=== PATIENT | female | born 1975 | race Caucasian/White ===

== ENCOUNTER 2023-04-25 06:42 | Outpatient (OUT) | payer OTHER, SELFPAY ==
[2023-04-25 07:22] LABS: Basophils Percent Auto 0.6 % (0.2-2.0); Eosinophils Absolute Auto 0.1 10^3/uL (0.0-0.7); Eosinophils Percent Auto 1.4 % (0.9-7.0); Hematocrit 37.6 % (36.0-48.0); Hemoglobin 12.6 g/dL (12.0-16.0); Immature Granulocytes Abs Auto 0.01 10^3/uL (0.00-0.03); Immature Granulocytes Pct Auto 0.2 % (0.0-0.5); Lymphocytes Absolute Auto 1.7 10^3/uL (1.2-3.8); Lymphocytes Percent Auto 33.9 % (20.5-60.0); Mean Corpuscular HGB Conc 33.5 g/dL (29.9-35.2); Mean Corpuscular Hemoglobin 33.1 pg (26.7-34.0); Mean Corpuscular Volume 98.7 fL (81.0-99.0); Mean Platelet Volume 10.1 fL (9.5-13.5); Monocytes Absolute Auto 0.3 10^3/uL (0.3-0.8); Monocytes Percent Auto 6.8 % (1.7-12.0); Neutrophils Absolute Auto 2.9 10^3/uL (1.4-6.5); Neutrophils Percent Auto 57.1 % (43.0-75.0); Platelet Count 303 10^3/uL (150-450); Red Blood Count 3.81 10^6/uL (4.20-5.40); Red Cell Distribution Width 12.2 % (11.0-15.0)
[2023-04-25 07:22] LABS: Bilirubin Urine SMALL (NEGATIVE); Blood Urine SMALL (NEGATIVE); Clarity Urine CLEAR (CLEAR); Color Urine YELLOW (YELLOW); Glucose Urine UA NEGATIVE (NEGATIVE); Ketones Urine NEGATIVE (NEGATIVE); Protein Urine NEGATIVE (NEG/TRACE); Specific Gravity Urine 1.025 (1.005-1.025); pH Urine 5.5 (5.0-9.0)
[2023-04-25 07:23] LABS: Leukocyte Esterase Urine NEGATIVE (NEGATIVE); Nitrite Urine NEGATIVE (NEGATIVE); Urobilinogen Urine 0.2 EU/dL (0.2-1.0)
[2023-04-25 07:24] LABS: Bacteria Urine NONE SEEN #/HPF (NONE SEEN); Mucus Urine NONE SEEN (NONE SEEN); RBC Urine 0-2 #/HPF (0-2); Squamous Epithelial Cell Urine FEW #/LPF (NONE/RARE); WBC Urine NONE SEEN #/HPF (NONE SEEN)
[2023-04-25 07:25] LABS: Cast Seen? NONE SEEN #/LPF (NONE SEEN); Crystals Seen? None Seen #/HPF (None Seen)
[2023-04-25 08:23] LABS: Alanine Aminotransferase 28 U/L (14-59); Albumin Globulin Ratio 1.1; Albumin Level 3.9 g/dL (3.4-5.0); Alkaline Phosphatase 36 U/L (46-116); Anion Gap 13.3; Aspartate Amino Transferase 14 U/L (15-37); BUN Creatinine Ratio 29.2; Bilirubin Total 0.6 mg/dL (0.2-1.0); Calcium 8.7 mg/dL (8.5-10.1); Carbon Dioxide 27.7 mmol/L (21.0-32.0); Chloride 103 mmol/L (98-107); Chol HDL Ratio 2.3; Cholesterol 206 mg/dL (<=200); Estimated GFR (African America >60 (>=60); Estimated GFR (Non-African Ame >60 (>=60); Globulin 3.5 g/dL; Glucose 83 mg/dL (74-106); HDL Cholesterol 91 mg/dL (40-60); Sodium 140 mmol/L (136-145); Thyroid Stimulating Hormone 3.284 uIU/mL (0.358-3.740); Total Protein 7.4 g/dL (6.4-8.2); Triglycerides 66 mg/dL (<=150); VLDL CHOLESTEROL 13.2 mg/dL
== END 2023-04-25 06:43 | disposition home or self-care (01) ==
LOC: LAB 06:46
PROVIDERS: PCP Nurse Practitioner; Visit Provider Nurse Practitioner
DX: Z00.00 Encounter for general adult medical examination without abnormal findings (principal); Z78.9 Other specified health status
CPT/HCPCS: 36415; 80053; 80061; 81001; 84443; 85025

== ENCOUNTER 2023-07-12 19:54 | Emergency (ER) | payer OTHER, SELFPAY ==
[2023-07-12 20:01] VITALS: BP 135/87; PULSE 115; RESP 18; TEMP 37; O2SAT 96; BMI 26.5
--- OUTSIDE RECORDS SUMMARY | 2023-07-12 20:02 | XMS_ITS | CCD ---
Author Name Unknown Address [address] [place] [address] Organization [facility] Care Team Providers Care Cold Header Operator Name Role Phone RADHA, PASTE THINNER AMBER Admitting Unavailable AICHHOLZ, PASTE THINNER AMBER Attending Unavailable AICHHOLVimal, BLAINE AMBER Primary Care Unavailable AICHHOLZ, PASTE THINNER AMBER Consulting Unavailable MUKESH BOYD Admitting Unavailable MUKESH BOYD Attending Unavailable MUKESH BOYD Consulting Unavailable MISC, DR HELTON Admitting Unavailable MISC, DR HELTON Attending Unavailable DR CAROLINA DAVIS Primary Care Unavailable MISC, DR HELTON Consulting Unavailable Itzel Wilkinson Unavailable AMBER LOUIS Primary Care Physician [phone] Kanika Licea Unavailable Brendon Muniz Attending Unavailable Brendon Muniz Admitting Unavailable BRENDON MUNIZ Attending Unavailable BRENDON MUNIZ Attending Unavailable RBENDON MUNIZ Attending Unavailable Aichholvimal SIGNAL MECHANIC-PASTE THINNER, Amber Awad Primary Care Unava ilable Iggyhrjimmyh PA-C, Milka Murray Attending Unavai lable Aichholz SIGNAL MECHANIC-PASTE THINNER, Amber Awad Primary Care Unava ilable Weihrauch PA-C, Milka Murray Attending Unavai lable Aichholz SIGNAL MECHANIC-PASTE THINNER, Amber Awad Primary Care Unava ilable Iggyhrauch PA-C, Milka Murray Attending Unavai lable Aichholz SIGNAL MECHANIC-PASTE THINNER, Amber Awad Primary Care Unava ilable Weihrauch PA-C, Milka Murray Attending Unavai lable Aichholz SIGNAL MECHANIC-PASTE THINNER, Amber Awad Primary Care Unava ilable Pamelah PA-C, Milka Murray Attending Amber Gibson Primary Care Roman Sullivan PA-C, Milka Murray Attending James Sullivan PA-C, Milka Murray Attending Amber Gibson Primary Care Roman carolina Allergies Allergy Classification Reported Allergen(s) Allergy Type Date of Onset Reaction(s) Facility (1 source) Acetaminophen / HYDROcodone; Translations: [Vicodin] Drug Allergy [facility] Repository (1 source) Acetaminophen / oxyCODONE; Translations: [Percocet 5/325] Drug Allergy [facility] Repository Medications Current Medications Medication Drug Class(es) Dates Sig (Normalized) Sig (Original) cephalexin 500 mg oral capsule (1 source) Cephalosporin Antibacterial Start: 01-22-2023 take 1 capsule by mouth every eight hours Cephalexin 500 MG 1 capsule Orally TID for 7 days Jan, Active mupirocin 0.02 mg/mg topical ointment (1 source) RNA Synthetase Inhibitor Antibacterial Start: 01-22-2023 Mupirocin 2 % 1 application Externally three times a day for 7 days Jan, Active 24 hr phentermine 15 mg / topiramate 92 mg extended release oral capsule (1 source) Sympathomimetic Amine Anorectic take 1 capsule by mouth every twenty-four hours Qsymia 15-92 MG 1 capsule Orally Once a day Active Completed/Discontinued Medications Medication Drug Class(es) Dates Sig (Normalized) Sig (Original) ondansetron 4 mg disintegrating oral tablet (1 source) Serotonin-3 Receptor Antagonist take 1-2 tablets by mouth every eight hours as needed Ondansetron 4 MG DISSOLVE 1-2 TABLETS ON THE TONGUE EVERY 8 HOURS NEEDED Oral for 7 Days Not-Taking Problems Active Problems Problem Classification Problem Date Documented Da te Episodic/Chronic Skin and subcutaneous tissue infections (1 source) Cellulitis of neck Episodic Unclassified (3 sources) CONTACT W/AND (SUSP) EXPOS COVID-19; Translations: [CONTACT W/AND (SUSP) EXPOS COVID-19] Onset: 10-07-2020 Varicose veins of lower extremity (1 source) Pain co-occurrent and due to varicose veins of bilateral legs; Translations: [Varicose veins of bilateral lower extremities with pain] Onset: 04-20-2022 Episodic Past or Other Problems Problem Classification Problem Date Documented Da te Episodic/Chronic Immunizations and screening for infectious disease (1 source) Encounter for screening for other viral diseases; Translations: [Encounter for screening for other viral diseases Z11.59] Onset: 2021 Resolved: 2021 Episodic Other aftercare (4 sources) Other senior living (current) drug therapy; Translations: [OTH DETENTION CURRENT DRUG THERAPY] Onset: 10-19-2020 Episodic Unclassified (1 source) CONTACT W/AND (SUSP) EXPOS COVID-19; Translations: [CONTACT W/AND (SUSP) EXPOS COVID-19] Onset: 10-04-2020 Results Test Name Value Interpretation Reference Range Facil ity Gynecology Office/Clinic Not lalit 05-31-2023 Gynecology Office/Clinic Note Chief Complaint 1 month Wegovy f/u History of Present Illness Contraception Type: None Sexually Active: Yes Date You Last Had Sex: Yesterday Partners in Last 30 Days: 1 Partners in Last 12 Months: 1 Partners in Your Lifetime: 5 Kinds of Sex: Vaginal Forced to Have Sex: No Partner Had More Than 1 Partner: Yes Partner IV Drug Use: No Consistently Use Condoms: No 05/25/23 13:51:00 1 month Wegovy f/u. Patient was started on compounded Wegovy through [employer]. She denies any side effects such as nausea, abdominal pain, diarrhea, or constipation. She relays it has helped curb her appetite. She feels wonderful and has been pleased with her results. She is down 2 pounds in 1 month. Patient continues to work hard on diet and exercise. She has been doing her treadmill for half an hour each morning. She continues to follow low-carb high-protein diet. He is focusing on portion control. Review of Systems Gastrointestinal Bloating: No Reflux/heartburn: No Abdominal Pain: No Change in bowel habits: No Urinary Urinary Incontinence: No Urinary frequency: No Nocturia: No Urgency: No Painful urination: No PsychoSocial Sleep Problems: No Anxiety: No Suicidal Ideation: No Homicidal Ideation: No Depression: No Additional Details Pain Present Physical Exam Vitals & Measurements BP: 120/78 Constitutional: Alert and oriented x 3. Neurologic: CN II-XII grossly intact. Psychiatric: Pleasant and cooperative. NAD. Additional Vitals BP Position/Location: Sitting, Right arm Assessment/Plan 1. Medication management Wegovy (Semaglutide): 1. Wegovy is an FDA approved prescription injectable medication that may help adults lose weight. It should be used along with a low calorie meal plan and physical activity. 2. Discussed risks with Wegovy including possible thyroid tumors or cancer. Do not use Wegovy if you or any of your family have ever had Medullary thyroid cancer or if you have an endocrine system condition called Multiple Endocrine Neoplasia syndrome type 2 (MEN 2) 3. Other possible risks of Wegovy include inflammation of the pancreas (pancreatitis) and gallbladder problems. Contact the office if you have any severe abdominal pain. 4. Possible side effects include low blood sugar, allergic reactions, mood changes, increased heart rate. Contact the office if you have any of these symptoms. 5. Common side effects include nausea, diarrhea, constipation, headache, vomiting, decreased appetite, gas, heartburn, and fatigue. 6. Wegovy is injected under the skin in your stomach, upper leg, or upper arm (subcutaneous tissue). DO NOT INJECT INTO A VEIN OR MUSCLE. 7. The starting dose of Wegovy is 0.25mg once per week x 4 weeks. In your second month increase your weekly dose to 0.5mg. In your third month to 1mg. In our fourth month increase your weekly dose to 1.7mg. In your fifth month you'll increase your dose to 2.4mg. From then onward, you'll continue taking that dose each week. If you are having multiple side effects do not increase to the next dose. 8. There should be a 4% weight loss by week 16 or Wegovy should be discontinued. Pt. is most interested in compounded Semaglutide. Discussed compounded Semaglutide options. Patient is educated that there are no randomized trials demonstrating either efficacy or safety of compounded Semaglutide for weight loss. The contents, dose, quality, and sterility of these products are not subject to regulatory oversight. When tested, potencies and patterns of absorption of compounded medications have been highly variable. These products are not required to include package inserts or the standard warnings that all approved prescriptions provide. A number of expert groups, including the Endocrine Society, have issued statements advising against the use of custom-compounded medications. Discussed that the risks associated with compounded Semaglutide is likely similar to the risks when taking Wegovy. Patient will increase dose to the 0.6 weekly syringe. She will follow-up in 3 months. Patient aware she should have lost 5% of body weight by that time. If she has, we can continue on the medication long-term. 2. Obesity Medical Decision Making Chronic conditions NOT treated during this visit that affected my overall medical decision making: [] Treatment plans discussed but not opted for at this time: [] Prescribed medication that requires intensive monitoring for toxicity: [] I have reviewed the patient?s medication list for medication interactions/contrai ndications and/or for upcoming procedures: [yes or no] Time Spent with the Patient I have personally spent [] minutes on this date, directly related to today's patient visit, including pre and post visit work, for this date of service. Time listed does not include time spent on separately billable services. Problem List/Past Medical History Ongoing Diverticulosis Encounter for gynecological examination (general) (more content not included)... Normal [facility] Physician Orderon 05-02-2023 Physician Order [id number] #[id number] Normal [facility] Gynecology Office/Clinic Not lalit 04-26-2023 Gynecology Office/Clinic Note History of Present Illness Pelvic Pain: No Abnormal Vaginal Discharge: No Abnormal Vaginal Bleeding: No Vaginal Dryness: No Vaginal Itch: No Vaginal Burning: No Vaginal Odor: No Contraception Type: None Sexually Active: Yes Date You Last Had Sex: Yesterday Partners in Last 30 Days: 1 Partners in Last 12 Months: 1 Partners in Your Lifetime: 5 Kinds of Sex: Vaginal Forced to Have Sex: No Partner Had More Than 1 Partner: Yes Partner IV Drug Use: No Consistently Use Condoms: No 04/26/23 15:25:00 Pt's insurance did not cover Saxenda so pt continues on Qsymia. Pt journaling and only eating 1200 calories per day. Despite this, pt only lost 2# while on her Qsymia. Saxenda/Wegovy is not covered by her insurance, so she was unable to attempt this medication. Jany any side affects but c/o not losing as much as expected. Patient frustrated with only 2 pounds weight loss since her last appointment. Current weight is 165 pounds, weight last office visit was 167 pounds. Patient states most of everyone in her family is morbidly obese. This includes her mother and sisters. Patient has been doing everything she can to avoid gaining weight. Patient interested in other options. Review of Systems Ears, Nose, Throat Congestion: No Vertigo: No Sore throat: No Nasal drainage: No Cardio Respiratory Peripheral edema: No Heart Irregularity: No Chest Pain: No Shortness of Breath: No Gastrointestinal Bloating: No Reflux/heartburn: No Abdominal Pain: No Change in bowel habits: No Urinary Urinary Incontinence: No Urinary frequency: No Nocturia: No Urgency: No Painful urination: No Additional Details Pain Present Physical Exam Vitals & Measurements BP: 116/74 HT: 162 cm WT: 75.0 kg WT: 75.0 kg (Dosing) BMI: 28.58 165# Constitutional: Alert and oriented x 3. Neck: Supple, non-tender. Normal thyroid. No lymphadenopathy. Lungs: Clear to auscultation and percussion. Non-labored respiration. Heart: Normal rate and regular rhythm. No murmur. No edema. Abdominal: BS active. Soft and non-distended. No tenderness. Negative rebound. Neurologic: CN II-XII grossly intact. Psychiatric: Pleasant and cooperative. NAD. Additional Vitals BP Position/Location: Sitting, Left arm Assessment/Plan 1. Obesity Discontinue Qsymia. Start compounded semaglutide through [facility] in [place]. We will start with semaglutide 0.3 mg / 0.25 mL, inject 0.25 mL (0.3 mg (once weekly as directed. This medication is sent to pharmacy. Follow-up in 1 month after starting the medication for weight check and evaluation. 1. Semaglutide is a weight loss injectable medication that may help adults lose weight. It should be used along with a low calorie meal plan and physical activity. 2. Discussed risks with semaglutide including possible thyroid tumors or cancer. Do not use Wegovy if you or any of your family have ever had Medullary thyroid cancer or if you have an endocrine system condition called Multiple Endocrine Neoplasia syndrome type 2 (MEN 2) 3. Other possible risks of semaglutide include inflammation of the pancreas (pancreatitis) and gallbladder problems. Contact the office if you have any severe abdominal pain. 4. Possible side effects include low blood sugar, allergic reactions, mood changes, increased heart rate. Contact the office if you have any of these symptoms. 5. Common side effects include nausea, diarrhea, constipation, headache, vomiting, decreased appetite, gas, heartburn, and fatigue. 6. Semaglutide is injected under the skin in your stomach, upper leg, or upper arm (subcutaneous tissue). DO NOT INJECT INTO A VEIN OR MUSCLE. 7. The starting dose of Wegovy is 0.25mg once per week x 4 weeks. In your second month increase your weekly dose to 0.5mg. In your third month to 1mg. In our fourth month increase your weekly dose to 1.7mg. In your fifth month you'll increase your dose to 2.4mg. From then onward, you'll continue taking that dose each week. If you are having multiple side effects do not increase to the next dose. 8. There should be a 4% weight loss by week 16 or Wegovy should be discontinued. Medical Decision Making Chronic conditions NOT treated during this visit that affected my overall medical decision making: [] Treatment plans discussed but not opted for at this time: [] Prescribed medication that requires intensive monitoring for toxicity: [] I have reviewed the patient?s medication list for medication interactions/contrai ndications and/or for upcoming procedures: [yes or no] Time Spent with the Patient I have personally spent [] minutes on this date, directly related to today's patient visit, including pre and post visit work, for this date of service. Time listed does not include time spent on separately billable services. Problem List/Past Medical History Ongoing Diverticulosis Encounter for gynecological examination (general) (routine) without abnormal findings E (more content not included)... Normal [facility] Gynecology Office/Clinic Not lalit 02-21-2023 Gynecology Office/Clinic Note Chief Complaint Annual History of Present Illness Pelvic Pain: No Painful Sex: No Abnormal Vaginal Discharge: No Abnormal Vaginal Bleeding: No Vaginal Dryness: No Vaginal Itch: No Vaginal Burning: No Vaginal Odor: No Hot Flashes: Yes Night Sweats: Yes Breast Lump: No Breast Pain: No Contraception Type: None Menstrual Periods: No Age of Menopause: 31 Sexually Active: Yes Date You Last Had Sex: Yesterday Partners in Last 30 Days: 1 Partners in Last 12 Months: 1 Partners in Your Lifetime: 5 Kinds of Sex: Vaginal Forced to Have Sex: No Partner Had More Than 1 Partner: Yes Partner IV Drug Use: No Consistently Use Condoms: No 02/15/23 11:18:00 47 y/o, , Annual Exam, Last Pap: 01/29/19 Neg. with HPV Neg. Hx of (vaginal hysterectomy 2005) Mammogram: 02/15/22 Benign with a calculated lifetime risk of 26.3%. Done today. Discussed patient's increased risk of breast cancer. Her lifetime risk of breast cancer is >20%. Based on the [place] [employer] guidelines, she may be a candidate for a screening breast MRI. This would be spaced 6 months from her mammogram. Discussed increased risk of false positives with the screening breast MRIs which may result in additional testing. She will consider. Colonoscopy: 2021 normal-q 10 yrs per pt Denies any problems Pt went off her Qsymia 6 months ago. She is now 167#. She was on Qsymia 15 mg. 158# in 07/2021; 149# last year. Pt. interested in something for weight gain. She exercises daily and eats a well balanced diet but despite this, without medication gains weight easily. Review of Systems Head Headaches: No Migraines: No Eyes Blurred vision: None Corrective lenses: Glasses ENT Congestion: No Nasal drainage: No Sore throat: No Vertigo: No Cardio Respiratory Heart Irregularity: No Peripheral edema: No Shortness of Breath: No Gastrointestinal Abdominal Pain: No Bloating: No Change in bowel habits: No Reflux/heartburn: No Urinary Nocturia: No Painful urination: No Urgency: No Urinary frequency: No Urinary Incontinence: No Musculoskeletal Backpain: No Joint pain: No Muscle aches: No Integumentary Acne: No Hair changes: No Lesions: No Moles: No PsychoSocial Anxiety: No Depression: No Homicidal Ideation: No Sleep Problems: No Suicidal Ideation: No Hematologic/Lymphati c Bleeding tendencies: No Bruising: No Lymphadenopathy: No Thromboembolism: No Endocrine Abnormal weight gain: No Abnormal weight loss: No Fatigue: No Pain Present Additional Details Physical Exam Vitals & Measurements BP: 112/82 HT: 162 cm WT: 75.8 kg WT: 75.8 kg (Dosing) BMI: 28.88 167# up from 149# when she was on qsymia. General: Alert and oriented x 3. Well nourished. No acute distress. HEENT: Normocephalic. Normal hearing. Moist oral mucosa. No scleral icterus. No sinus tenderness. Neck: Supple, non-tender. Normal thyroid. No lymphadenopathy. Lungs: Clear to auscultation and percussion. Non-labored respiration. Heart: Normal rate with regular rhythm. No murmur, gallop or edema. Abdomen: Soft, non-tender, non-distended. Normal bowel sounds and no masses appreciated. Musculoskeletal: Normal range of motion and strength. No tenderness or swelling noted. Skin: Skin is warm, dry and pink. No rashes or lesions. Neurologic: CN II-XII grossly intact. Psychiatric: Cooperative. Appropriate mood and affect. Breast exam: No masses, tenderness, or skin changes. No nipple discharge. External Genitalia: Normal urethral meatus. No lesions. Vulvar skin intact. Genitourinary: Normal vaginal mucosa. No lesions or abnormal discharge. Cervix intact without lesion. No cystocele or rectocele. Bimanual exam: Normal sized, non-tender, mobile uterus. No adnexal tenderness or masses. Additional Vitals BP Position/Location: Sitting, Left arm Assessment/Plan 1. Encounter for gynecological examination (general) (routine) without abnormal findings Physician Comments 1. Recommend monthly self breast exam and call with any changes. 2. Recommend yearly mammogram starting at age 40 (sooner if family history). 3. Recommend colonoscopy to screen for colon cancer beginning at age 45. Gave option of Cologuard if unwilling to do colonoscopy. 4. Recommend vitamin D 1000-2000IU daily. 5. Recommend calcium either through diet (3 servings of dairy daily) or if not able to get through diet then recommend supplement 1200mg daily in divided doses. 6. Recommend healthy diet. 7. Recommend exercise 30 min 5 days weekly. Ordered: liraglutide, See Instructions, SQ daily .6mgx 7days then 1.2 mg x 7 days then 1.8mg x 7 days then 2.4 mg x 7 days then 3 mg, # 75 mL, 0 Refill(s), Pharmacy: [id number] Misc Medication, BD pen Needle 31 G x 8 mm, See Instructions, use daily with Saxenda injections, # 30 EA, 0 Refill(s), Pharmacy: [id number] 2. Mildly obese Saxenda: Information on Saxenda is give (more content not included)... Normal [facility] CBC AUTO DIFFon 09-29-2021 BASO # 0.0 103/ul Normal 0.0-0.1 [facility] Comment on above: Performed By: #### C BC #### [facility] [address] [address] [address] Kathie Ryan Basophils/100 WBC (Bld) 0.3 % Normal 0.2-2.0 [facility] Comment on above: Performed By: #### C BC #### [facility] [address] [address] [address] Kathie Ryan EO # 0.0 103/ul Normal 0.0-0.7 [facility] Comment on above: Performed By: #### C BC #### [facility] [address] [address] [address] Kathie Ryan Eosinophils/100 WBC (Bld) 0.4 % Critically low 0.9-7.0 [facility] Comment on above: Performed By: #### C BC #### [facility] [address] [address] [address] Kathie Ryan Erythrocyte distribution width (RBC) [Ratio] 12.2 % Normal 11.0-15.0 [facility] Comment on above: Performed By: #### C BC #### [facility] [address] [address] [address] Kathie Ryan Hematocrit (Bld) [Volume fraction] 39.1 % Normal 36.0-48.0 [facility] Comment on above: Performed By: #### C BC #### [facility] [address] [address] [address] Kathie Ryan Hemoglobin (Bld) [Mass/Vol] 12.8 g/dL Normal 12.0-16.0 [facility] Comment on above: Performed By: #### C BC #### [facility] [address] [address] [address] Kathie Ryan IG # 0.01 10e3/ul Normal 0.00-0.03 [facility] Comment on above: Performed By: #### C BC #### [facility] [address] [place] [address] Dr. Kathie Ryan IG % 0.1 % Normal 0.0-0.5 [facility] Comment on above: Performed By: #### C BC #### [facility] [address] [place] [address] Dr. Kathie Ryan LYMPH # 1.7 103/ul Normal 1.2-3.8 [facility] Comment on above: Performed By: #### C BC #### [facility] [address] [place] [address] Dr. Kathie Ryan Lymphocytes/100 WBC (Bld) 22.0 % Normal 20.5-60.0 [facility] Comment on above: Performed By: #### C BC #### [facility] [address] [place] [address] Dr. Kathie Ryan MANUAL DIFF REQ NO Normal [facility] Comment on above: Performed By: #### C BC #### [facility] [address] [place] [address] Dr. Kathie Ryan MCH (RBC) [Entitic mass] 32.5 pg Normal 26.7-34.0 [facility] Comment on above: Performed By: #### C BC #### [facility] [address] [place] [address] Dr. Kathie Ryan MCHC (RBC) [Mass/Vol] 32.7 g/dL Normal 29.9-35.2 [facility] Comment on above: Performed By: #### C BC #### [facility] [address] [place] [address] Dr. Kathie Ryan MCV (RBC) [Entitic vol] 99.2 fL Critically high 81.0-99.0 [facility] Comment on above: Performed By: #### C BC #### [facility] [address] [place] [address] Dr. Kathie Ryan MONO # 0.5 103/ul Normal 0.3-0.8 [facility] Comment on above: Performed By: #### C BC #### [facility] [address] [place] [address] Dr. Kathie Ryan Monocytes/100 WBC (Bld) 6.0 % Normal 1.7-12.0 [facility] Comment on above: Performed By: #### C BC #### [facility] [address] [place] [address] Dr. Kathie Ryan NEUT # 5.5 103/ul Normal 1.4-6.5 [facility] Comment on above: Performed By: #### C BC #### [facility] [address] [place] [address] Dr. Kathie Ryan Neutrophils/100 WBC (Bld) 71.2 % Normal 43.0-75.0 [facility] Comment on above: Performed By: #### C BC #### [facility] [address] [place] [address] Dr. Kathie Ryan Platelet mean volume (Bld) [Entitic vol] 10.7 fL Normal 9.5-13.5 [facility] Comment on above: Performed By: #### C BC #### [facility] [address] [place] [address] Dr. Kathie Ryan PLT 373 103/ul Normal 150-450 [facility] Comment on above: Performed By: #### C BC #### [facility] [address] [place] [address] Dr. Kathie Ryan RBC 3.94 106/ul Critically low 4.20-5.40 [facility] Comment on above: Performed By: #### C BC #### [facility] [address] [place] [address] Dr. Kathie Ryan WBC 7.7 103/ul Normal 4.0-11.0 [facility] Comment on above: Performed By: #### C BC #### [facility] [address] [place] [address] Dr. Kathie Ryan FREE T4on 09-29-2021 Free T4 [Mass/Vol] 0.85 ng/dL Normal 0.78-2.19 [facility] Comment on above: Performed By: #### F T4 #### [facility] [address] [address] [address] Kathie Ryan LIPID PROFILEon 09-29-2021 CHOL-HDL RATIO NORM SEE BELOW Normal [facility] Comment on above: Result Comment: 3.3 - 4.4 LOW RISK 4.4 - 7.1 AVERAGE RISK 7.1 - 11.0 MODERATE RISK >11.0 HIGH RISK Performed By: #### T SH, LIPID, CMP #### [facility] [address] [address] [address] Kathie Ryan Cholesterol [Mass/Vol] 243 mg/dL Critically high <=200 [facility] Comment on above: Performed By: #### T SH, LIPID, CMP #### [facility] [address] [address] [address] Kathie Ryan Cholesterol in HDL [Mass/Vol] 88 mg/dL Critically high 40-60 [facility] Comment on above: Performed By: #### T SH, LIPID, CMP #### [facility] [address] [place] [address] Dr. Kathie Ryan Cholesterol in LDL [Mass/Vol] 136.0 mg/dL Normal [facility] Comment on above: Performed By: #### T SH, LIPID, CMP #### [facility] [address] [place] [address] Dr. Kathie Ryan Cholesterol.total/C holesterol in HDL [Mass ratio] 2.8 {ratio} Normal [facility] Comment on above: Performed By: #### T SH, LIPID, CMP #### [facility] [address] [place] [address] Dr. Kathie Ryan HDL NORMAL > or = 60 mg/dl - LOW CARDIOVASCULAR RISK <40 mg/dl - HIGH CARDIOVASCULAR RISK Normal [facility] Comment on above: Performed By: #### T SH, LIPID, CMP #### [facility] [address] [place] [address] Dr. Kathie Ryan LDL CALC NORMAL SEE BELOW Normal [facility] Comment on above: Result Comment: <100 mg/dl OPTIMAL 100 - 129 mg/dl NEAR OR ABOVE OPTIMAL 130 - 159 mg/dl BORDERLINE HIGH 160 - 189 mg/dl HIGH >190 mg/dl VERY HIGH Performed By: #### T RCISTINA, LIPID, CMP #### [facility] [address] [place] [address] Dr. Kathie Ryan Triglyceride [Mass/Vol] 95 mg/dL Normal <=150 [facility] Comment on above: Performed By: #### T CRISTINA, LIPID, CMP #### [facility] [address] [place] [address] Dr. Kathie Ryan VLDL CALC 19.0 mg/dL Normal [facility] Comment on above: Performed By: #### T CRISTINA, LIPID, CMP #### [facility] [address] [place] [address] Dr. Kathie Ryan PROF 14(COMP METB)on 022 Albumin [Mass/Vol] 3.9 g/dL Normal 3.4-5.0 [facility] Comment on above: Performed By: #### T CRISTINA, CMP #### [facility] [address] [place] [address] Luis A Bhavani Albumin/Globulin [Mass ratio] 1.1 {ratio} Normal [facility] Comment on above: Performed By: #### T SH, CMP #### [facility] [address] [place] [address] Luis A Bhavani ALP [Catalytic activity/Vol] 44 U/L Critically low 46-116 [facility] Comment on above: Performed By: #### T SH, CMP #### [facility] [address] [place] [address] Luis A Bhavani ALT [Catalytic activity/Vol] 38 U/L Normal 14-59 [facility] Comment on above: Performed By: #### T SH, CMP #### [facility] [address] [place], [place] [id number] Luis A Bhavani Anion gap [Moles/Vol] 11.0 mmol/L Normal [facility] Comment on above: Performed By: #### T SH, CMP #### [facility] [address] [place] [address] Luis A Bhavani AST [Catalytic activity/Vol] 17 U/L Normal 15-37 [facility] Comment on above: Performed By: #### T SH, CMP #### [facility] [address] [address] Luis A Bhavani Bilirubin [Mass/Vol] 0.4 mg/dL Normal 0.2-1.3 [facility] Comment on above: Performed By: #### T SH, CMP #### [facility] [address] [address] Luis A Bhavani Calcium [Mass/Vol] 9.2 mg/dL Normal 8.5-10.1 [facility] Comment on above: Performed By: #### T SH, CMP #### [facility] [address] [place] [address] Luis A Bhavani Chloride [Moles/Vol] 102 mmol/L Normal 98-107 [facility] Comment on above: Performed By: #### T SH, CMP #### [facility] [address] [place] [address] Luis A Bhavani CO2 [Moles/Vol] 28.1 mmol/L Normal 22.0-30.0 [facility] Comment on above: Performed By: #### T SH, CMP #### [facility] [address] [place] [address] Luis A Bhavani Creatinine [Mass/Vol] 0.61 mg/dL Normal 0.52-1.04 [facility] Comment on above: Performed By: #### T SH, CMP #### [facility] [address] [place] [address] Luis A Bhavani EGFR-AF ENGLISH >60 Normal >=60 [facility] Comment on above: Performed By: #### T SH, CMP #### [facility] [address] [place] [address] Luis A Bhavani EGFR-NON AF ENGLISH >60 Normal >=60 [facility] Comment on above: Performed By: #### T SH, CMP #### [facility] [address] [place] [address] Luis A Bhavani Globulin (S) [Mass/Vol] 3.7 g/dL Normal [facility] Comment on above: Performed By: #### T SH, CMP #### [facility] [address] [id number] Luis A Bhavani Glucose [Mass/Vol] 95 mg/dL Normal 74-106 [facility] Comment on above: Performed By: #### T SH, CMP #### [facility] [address] [id number] Luis A Bhavani Potassium [Moles/Vol] 4.1 mmol/L Normal 3.4-5.0 [facility] Comment on above: Performed By: #### T SH, CMP #### [facility] [address] [address] Luis A Bhavani Protein [Mass/Vol] 7.6 g/dL Normal 6.1-8.2 [facility] Comment on above: Performed By: #### T SH, CMP #### [facility] [address] [place] [address] Luis A Bhavani Sodium [Moles/Vol] 137 mmol/L Normal 137-145 [facility] Comment on above: Performed By: #### T SH, CMP #### [facility] [address] [address] Luis A Bhavani Urea nitrogen [Mass/Vol] 12.0 mg/dL Normal 7.0-18.0 [facility] Comment on above: Performed By: #### T SH, CMP #### [facility] [address] [place] [address] Luis A Bhavani Urea nitrogen/Creatinine [Mass ratio] 19.7 mg/mg Normal [facility] Comment on above: Performed By: #### T SH, CMP #### [facility] [address] [address] Luis A Bhavani TSHon 09-29-2021 TSH 1.840 uIU/mL Normal 0.470-4.680 [facility] Comment on above: Performed By: #### T SH, LIPID, CMP #### [facility] [address] [address] [address] Kathie Ryan TSH RANGE SEE BELOW Normal [facility] Comment on above: Result Comment: <0.3 4 UIU/ml HYPERTHYROID 0.34-5.60 UIU/ml EUTHYROID >5.60 UIU/ml HYPOTHYROID Performed By: #### T SH, LIPID, CMP #### [facility] [address] [place], [place] [id number] Dr. Kathie Ryan CBC AUTO DIFFon 10-19-2020 BASO # 0.0 103/ul Normal 0.0-0.1 [facility] Comment on above: Performed By: #### C BC #### [facility] [address] [place] [address] Luis A Bhavani Basophils/100 WBC (Bld) 0.7 % Normal 0.2-2.0 [facility] Comment on above: Performed By: #### C BC #### [facility] [address] [place] [address] Luis A Bhavani EO # 0.1 103/ul Normal 0.0-0.7 [facility] Comment on above: Performed By: #### C BC #### [facility] [address] [place] [address] Luis A Bhavani Eosinophils/100 WBC (Bld) 1.2 % Normal 0.9-7.0 [facility] Comment on above: Performed By: #### C BC #### [facility] [address] [place] [address] Luis A Bhavani Erythrocyte distribution width (RBC) [Ratio] 12.5 % Normal 11.0-15.0 [facility] Comment on above: Performed By: #### C BC #### [facility] [address] [place] [address] Luis A Bhavani Hematocrit (Bld) [Volume fraction] 36.9 % Normal 36.0-48.0 [facility] Comment on above: Performed By: #### C BC #### [facility] [address] [place], [place] [id number] Luis A Bhavani Hemoglobin (Bld) [Mass/Vol] 12.3 g/dL Normal 12.0-16.0 [facility] Comment on above: Performed By: #### C BC #### [facility] [address] [place], [place] [address] Luis A Bhavani IG # 0.01 10e3/ul Normal 0.00-0.03 [facility] Comment on above: Performed By: #### C BC #### [facility] [address] [place] [address] Luis Aheri Beckham IG % 0.2 % Normal 0.0-0.5 [facility] Comment on above: Performed By: #### C BC #### [facility] [address] [place] [address] Luis A Beckham LYMPH # 2.0 103/ul Normal 1.2-3.8 [facility] Comment on above: Performed By: #### C BC #### [facility] [address] [place] [address] Luis A Beckham Lymphocytes/100 WBC (Bld) 35.4 % Normal 20.5-60.0 [facility] Comment on above: Performed By: #### C BC #### [facility] [address] [place] [address] Luis A Beckham MANUAL DIFF REQ NO Normal [facility] Comment on above: Performed By: #### C BC #### [facility] [address] [place] [address] Luis A Beckham MCH (RBC) [Entitic mass] 32.6 pg Normal 26.7-34.0 [facility] Comment on above: Performed By: #### C BC #### [facility] [address] [place] [address] Luis A Beckham MCHC (RBC) [Mass/Vol] 33.3 g/dL Normal 29.9-35.2 [facility] Comment on above: Performed By: #### C BC #### [facility] [address] [place] [address] Luis A Beckham MCV (RBC) [Entitic vol] 97.9 fL Normal 81.0-99.0 [facility] Comment on above: Performed By: #### C BC #### [facility] [address] [place] [address] Luis Aheri Griffithen MONO # 0.4 103/ul Normal 0.3-0.8 [facility] Comment on above: Performed By: #### C BC #### [facility] [address] [id number] Luis A Beckham Monocytes/100 WBC (Bld) 6.2 % Normal 1.7-12.0 [facility] Comment on above: Performed By: #### C BC #### [facility] [address] [id number] Luis Aheri Griffithen NEUT # 3.2 103/ul Normal 1.4-6.5 [facility] Comment on above: Performed By: #### C BC #### [facility] [address] [id number] Luis A Beckham Neutrophils/100 WBC (Bld) 56.3 % Normal 43.0-75.0 [facility] Comment on above: Performed By: #### C BC #### [facility] [address] [place], [place] [address] Luis A Beckham Platelet mean volume (Bld) [Entitic vol] 10.3 fL Normal 9.5-13.5 [facility] Comment on above: Performed By: #### C BC #### [facility] [address] [place], [place] [address] Luis Aheri Griffithen PLT 295 103/ul Normal 150-450 [facility] Comment on above: Performed By: #### C BC #### [facility] [address] [place], [place] [address] Luis A Bhavani RBC 3.77 106/ul Critically low 4.20-5.40 [facility] Comment on above: Performed By: #### C BC #### [facility] [address] [place], [place] [address] Luis Aheri Griffithen WBC 5.7 103/ul Normal 4.0-11.0 [facility] Comment on above: Performed By: #### C BC #### [facility] [address] [place], [place] [address] Luis A Beckham PROF 14(COMP METB)on 021 Albumin [Mass/Vol] 3.8 g/dL Normal 3.5-5.0 [facility] Comment on above: Performed By: #### T CRISTINA, CMP #### [facility] [address] [id number] Luis A Bhavani Albumin/Globulin [Mass ratio] 1.0 {ratio} Normal [facility] Comment on above: Performed By: #### T CRISTINA, CMP #### [facility] [address] [address] Luis A Bhavani ALP [Catalytic activity/Vol] 31 U/L Critically low 38-126 [facility] Comment on above: Performed By: #### T CRISTINA, CMP #### [facility] [address] [address] Luis A Bhavani ALT [Catalytic activity/Vol] 26 U/L Normal 9-52 [facility] Comment on above: Performed By: #### T CRISTINA, CMP #### [facility] [address] [place] [address] Luis A Bhavani Anion gap [Moles/Vol] 14.7 mmol/L Normal [facility] Comment on above: Performed By: #### T CRISTINA, CMP #### [facility] [address] [place] [address] Luis A Bhavani AST [Catalytic activity/Vol] 14 U/L Normal 14-36 [facility] Comment on above: Performed By: #### T CRISTINA, CMP #### [facility] [address] [place] [address] Luis A Bhavani Bilirubin [Mass/Vol] 0.6 mg/dL Normal 0.2-1.3 [facility] Comment on above: Performed By: #### T CRISTINA, CMP #### [facility] [address] [place] [address] Luis A Bhavani Calcium [Mass/Vol] 9.0 mg/dL Normal 8.4-10.2 [facility] Comment on above: Performed By: #### T CRISTINA, CMP #### [facility] [address] [place] [address] Luis A Bhavani Chloride [Moles/Vol] 105 mmol/L Normal 98-107 [facility] Comment on above: Performed By: #### T CRISTINA, CMP #### [facility] [address] [id number] Luis A Bhavani CO2 [Moles/Vol] 24.5 mmol/L Normal 22.0-30.0 [facility] Comment on above: Performed By: #### T SH, CMP #### [facility] [address] [id number] Luis A Bhavani Creatinine [Mass/Vol] 0.81 mg/dL Normal 0.52-1.04 [facility] Comment on above: Performed By: #### T SH, CMP #### [facility] [address] [place], [place] [address] Luis A Bhavani EGFR-AF ENGLISH >60 Normal >=60 [facility] Comment on above: Performed By: #### T CRISTINA, CMP #### [facility] [address] [place] [address] Luis A Bhavani EGFR-NON AF ENGLISH >60 Normal >=60 [facility] Comment on above: Performed By: #### T CRISTINA, CMP #### [facility] [address] [place] [address] Luis A Bhavani Globulin (S) [Mass/Vol] 3.7 g/dL Normal [facility] Comment on above: Performed By: #### T CRISTINA, CMP #### [facility] [address] [place] [address] Luis A Bhavani Glucose [Mass/Vol] 94 mg/dL Normal 74-106 [facility] Comment on above: Performed By: #### T CRISTINA, CMP #### [facility] [address] [place] [address] Luis A Bhavani Potassium [Moles/Vol] 4.2 mmol/L Normal 3.4-5.0 [facility] Comment on above: Performed By: #### T CRISTINA, CMP #### [facility] [address] [place] [address] Luis A Bhavani Protein [Mass/Vol] 7.5 g/dL Normal 6.1-8.2 [facility] Comment on above: Performed By: #### T CRISTINA, CMP #### [facility] [address] [place] [address] Luis A Bhavani Sodium [Moles/Vol] 140 mmol/L Normal 137-145 [facility] Comment on above: Performed By: #### T CRISTINA, CMP #### [facility] [address] [place] [address] Luis A Bhavani Urea nitrogen [Mass/Vol] 16.0 mg/dL Normal 7.0-17.0 [facility] Comment on above: Performed By: #### T CRISTINA, CMP #### [facility] [address] [place] [address] Luis A Bhavani Urea nitrogen/Creatinine [Mass ratio] 19.8 mg/mg Normal [facility] Comment on above: Performed By: #### T CRISTINA, CMP #### [facility] [address] [place] [address] Luis A Bhavani TSHon 10-19-2020 TSH 3.533 uIU/mL Normal 0.470-4.680 [facility] Comment on above: Performed By: #### T CRISTINA, CMP #### [facility] [address] [place] [address] Luis A Bhavani TSH RANGE SEE BELOW Normal [facility] Comment on above: Result Comment: <0.3 4 UIU/ml HYPERTHYROID 0.34-5.60 UIU/ml EUTHYROID >5.60 UIU/ml HYPOTHYROID Performed By: #### T CRISTINA, CMP #### [facility] [address] [place] [address] Luis A Bhavani VITAMIN B12on 10-19-2020 Cobalamin (Vitamin B12) [Mass/Vol] 418.0 pg/mL Normal 239.0-931.0 [facility] Comment on above: Performed By: #### V ITB12, VITAD #### [facility] [address] [place] [address] Luis A Bhavani VITAMIN D 25 OHon 10-19-2020 VIT D 25-OH 35.0 ng/mL Normal [facility] Comment on above: Performed By: #### V ITB12, VITAD #### [facility] [address] [place] [address] Luis A Bhavani VIT D RANGES SEE BELOW Normal [facility] Comment on above: Result Comment: <20 ng/mL Vit D deficient 20 - <30 ng/mL Vit D insufficient 30 - 100 ng/mL Vit D sufficient >100 ng/mL Potential Toxicity Performed By: #### V ITB12, VITAD #### [facility] [address], [place] [address] Luis A Beckham [facility] Sample Type Test performed using RT-PCR from a nasopharyngeal collected specimen. Normal [facility] Comment on above: Performed By: #### C VDTBH #### [facility] [address], [place] [address] Luis A Beckham SARS-CoV-2 (COVID-19) RNA LION+probe Ql (Unsp spec) Not detected Normal NOT DETECTED [facility] Comment on above: Result Comment: This test is not yet approved or cleared by the [place] FDA. When there are no FDA-approved or cleared tests available, and other criteria are met, FDA can make tests available under an emergency access mechanism called an Emergency Use Authorization (EUA). The EUA for this test is supported by the School Bus Driver of Health and Human Service's (HHS's) declaration that circumstances exist to justify the emergency use of in vitro diagnostics for the detection and/or diagnosis of the virus that causes COVID-19. This EUA will remain in effect (meaning this test can be used) for the duration of the COVID-19 declaration justifying emergency of IVDs, unless it is terminated or revoked by FDA (after which the test may no longer be used). When diagnostic testing is negative, the possibility of a false negative should be considered in the context of a patient's recent exposures and the presence of clinical signs and symptoms consistent with SARS-CoV-2. Performed By: #### C VDTBH #### [facility] [address] [place] [id number] Luis A Beckham Vital Signs Date Time Vital Sign Value Performing Clinician Facility 01-22-2023 17:25-0400 Body height 162.56 cm Kanika Licea Other [facility] Other 01-22-2023 17:25-0400 Body mass index (BMI) [Ratio] 27.29 kg/m2 Kanika Anuja Other [employer] [facility] Other 01-22-2023 17:25-0400 Body temperature 97.3 [degF] Kanika Anuja Other [employer] [facility] Other 01-22-2023 17:25-0400 Body weight 72.12 kg Kanika Anuja Other [employer] [facility] Other 01-22-2023 17:25-0400 Diastolic blood pressure 85 mm[Hg] Kanika Licea Other [employer] [facility] Other 01-22-2023 17:25-0400 Respiratory rate 18 /min Kanika Licea Other [employer] Other 01-22-2023 17:25-0400 SaO2% (BldA) [Mass fraction] 98 % Kanika Anuja Other [employer] [facility] Other 01-22-2023 17:25-0400 Systolic blood pressure 152 mm[Hg] Kanika Licea Other [employer] Other 04-20-2022 15:48-0500 Diastolic blood pressure 102 mm[Hg] Mio Yogesh [facility] 04-20-2022 15:48-0500 Mean blood pressure 122 mm[Hg] Carlenechris Yogesh [facility] 04-20-2022 15:48-0500 Systolic blood pressure 161 mm[Hg] Mio Yogesh [facility] 04-20-2022 15:34-0500 Blood Pressure Location Mio Yogesh [facility] 04-20-2022 15:34-0500 Diastolic blood pressure 62 mm[Hg] Mio Zuñiga [facility] 04-20-2022 15:34-0500 Heart rate 87 /min Mio Zuñiga [facility] 04-20-2022 15:34-0500 SaO2% (BldA) [Mass fraction] 100 % Mio Zuñiga [facility] 04-20-2022 15:34-0500 Systolic blood pressure 175 mm[Hg] [facility] Yogesh [facility] Encounters Encounter Date Encounter Type Care Provider Facility Start: 05-31-2023 End: 06-01-2023 ambulatory Amber Louis [employer] Facility:On license of [facility] Start: 05-17-2023 End: 05-17-2023 ambulatory BRENDON A BROWN Not Available Start: 05-10-2023 End: 05-10-2023 ambulatory BRENDON A BROWN Not Available Start: 05-02-2023 End: 05-03-2023 ambulatory Brendon A Brown Facility:[facility] Start: 05-02-2023 End: 05-02-2023 Lab Drop off Brendon A Brown [facility] Start: 05-02-2023 End: 05-02-2023 ambulatory BRENDON A BROWN Not Available Start: 04-26-2023 End: 04-27-2023 ambulatory Amber Louis [employer] Facility:On license of [facility] Start: 02-21-2023 ambulatory Ambre perez [employer]NAL [employer]CH[employer] Facility:[facility] Start: 02-21-2023 End: 02-22-2023 ambulatory Milka Sullivan PA-C Facility:On license of [facility] Start: 01-22-2023 End: 01-22-2023 ambulatory Kanika Licea Other [employer] Other Start: 01-22-2023 Office outpatient vi sit 15 minutes Kanika Licea [facility] Start: 04-20-2022 End: 04-20-2022 Patient encounter procedure Mio Zuñiga [facility] Start: 03-29-2022 End: 03-29-2022 Patient encounter procedure Mio Zuñiga [facility] Start: 09-30-2021 Encounter for genera l adult medical examination without abnormal findings [facility] Start: 09-29-2021 End: 09-30-2021 ambulatory [facility] Facility:[facility] Start: 09-29-2021 End: 09-30-2021 Encounter for general adult medical examination without abnormal findings [facility] Facility:[facility] Start: 2021 Office outpatient vi sit 5 minutes Itzel Wilkinson [facility] Start: 10-19-2020 End: 10-20-[address] DOCTOR GAMA Facility:[facility] Start: 10-04-2020 End: 10-04-2020 ambulatory MUKESH BOYD Facility:[facility] Payers Date Payer Category Payer Unknown [id number] 2022 Unknown 1975 Unknown [id number] 1975 Unknown [id number] [id number] 1975 Unknown [id number] 2.16.84 0.1.651757.3.579.2.593 1975 Unknown [id number] 2.16.8 40.1.571499.3.579.2.727 1974 Unknown [id number] 2.16.840 .1.419226.3.579.2.1259 1974 Unknown [id number] 2.16.840 .1.585601.3.579.2.1259 1974 Unknown [id number] 2.16.840 .1.364979.3.579.2.1259 1974 Unknown [id number] 2.16. 840.1.582743.3.579.2. 1974 Unknown [id number] 2.16. 840.1.551764.3.579.2. 1974 Unknown [id number] 2.16. 840.1.940434.3.579.2. 1974 Unknown [id number] 2.16. 840.1.392713.3.579.2. 1974 Unknown [id number] 2.16. 840.1.010937.3.579.2. 1974 Unknown [id number] 2.16. 840.1.598770.3.579.2.196 1974 Unknown [id number] 2.16. 840.1.826162.3.579.2.196 1959 Unknown [id number] Social History Date Type Detail Facility Unknown if ever smoked [employer] Other Sex Assigned At [facility] Tobacco smoking status No Smokin g Status Entered [facility] Start: 04-20-2022 Tobacco smoking status Never s moked tobacco (finding) [facility] Tobacco smoking status Never [facility] Functional Status Date Assessment Result Facility 04-20-2022 Functional Status No [facility] Clinical Notes 2021 to 05-25-2023 Note Date & Type Note Facility 05-25-2023 Note Patient Education Ma terials Name: Dona Wood Current Date: 05/25/2023 13:51:50 [place] : 1975 The following sheet(s) are the Patient Education Leaflets for Dona Wood Nutrition 4 Steps for Eating Healthier Changing the way you eat can improve your health. It can lower your cholesterol and blood pressure, and help you stay at a healthy weight. Your diet doesn?t have to be bland and boring to be healthy. Just watch your calories and follow these steps: Step 1. Eat fewer unhealthy fats ?Choose more fish and lean meats instead of fatty cuts of meat. ?Skip butter and lard, and use less margarine. ?Pass on foods that have palm, coconut, or hydrogenated oils. ?Eat fewer high-fat dairy foods like cheese, ice cream, and whole milk. ?Get a heart-healthy cookbook and try some low-fat recipes. Step 2.?Go light on salt ?Keep the saltshaker off the table. ?Limit high-salt ingredients, such as soy sauce, bouillon, and garlic salt. ?Instead of adding salt when cooking, season your food with herbs and flavorings. Try lemon, garlic, and onion, or salt-free herb seasonings. ?Limit convenience foods, such as boxed or canned foods and restaurant food. ?Read food labels and choose lower-sodium options. Step 3. Limit sugar ?Pause before you add sugars to pancakes, cereal, coffee, or tea. This includes white and brown table sugar, syrup, honey, and molasses. Cut your usual amount by half. ?Use non-sugar sweeteners. Stevia, aspartame, and sucralose can satisfy a sweet tooth without adding calories. ?Swap out sugar-filled soda and other drinks. Buy sugar-free or low-calorie beverages. Remember water is always the best choice. ?Read labels and choose foods with less added sugar. Keep in mind that dairy foods and foods with fruit will have some natural sugar. ?Cut the sugar in recipes by 1/3 to 1/2. Boost the flavor with extracts like almond, vanilla, or orange. Or add spices such as cinnamon or nutmeg. Step 4. Eat?more fiber ?Eat fresh fruits and vegetables every day. ?Boost your diet with whole grains. Go for oats, whole-grain rice, and bran. ?Add beans and lentils to your meals. ?Drink more water to match your fiber increase to help prevent constipation. ? 1636-9884 [employer]. [address] [place] [address], [place] [address]. All rights reserved. This information is not intended as a substitute for professional medical care. Always follow your healthcare professional's instructions. [facility] 02-21-2023 Note BREAST IMAGING CONSU LTATION: 02/21/2023 CLINICAL: Screening. Comparison is made to exams dated: 02/15/2022 mammogram, 02/16/2021 mammogram, 02/09/2021 mammogram, 02/04/2020 mammogram, and 03/06/2019 mammogram - [facility]. The tissue of both breasts is extremely dense, which lowers the sensitivity of mammography. Current study was also evaluated with a Computer Aided Detection (CAD) system. No significant masses, calcifications, or other findings are seen in either breast. IMPRESSION: NEGATIVE There is no mammographic evidence of malignancy. A 1 year screening mammogram is recommended. (02/22/2024) This patient's calculated lifetime risk for development of breast cancer is 37.4%. Based upon the [place] [employer] guidelines 20% and higher: she is a candidate for screening breast MRI. The patient was notified of the results. Your patient's mammogram demonstrates that she has dense breast tissue, which could hide small abnormalities. In compliance with H.B. 394 Section 3702.40 the patient has been sent a letter which informs her that she has dense breast tissue and might benefit from supplementary screening tests depending on her individual risk factors. The patient may contact you if she has any questions or concerns. Investigation of a clinically suspicious lesion should not be precluded by the lack of specific imaging findings. 10-15% of breast cancers may not be detected on mammograms. The [place] [employer] supports annual screening mammography starting at age 40. Megan palma/terrence:02/21/2023 13:43:27 copy to: Amber Louis NP, ph: [phone], fax: [phone] Chorus Dancer(s): RT Nancy(R)(M)(CT), [facility] letter sent: New Mammo Normal B1/2 Mammogram BI-RADS: 1 Negative Final Dictated by: Megan Kuo DO Signed by: Megan Kuo DO Signed (Electronic Signature): 02/21/2023 1:43 pm (If Report Is Signed, Electronically Signed in Other Vendor System) [facility] 02-15-2023 Note Patient Education Ma terials Name: Dona Wood Current Date: 02/15/2023 11:23:36 Joanna/[facility] : 1975 The following sheet(s) are the Patient Education Leaflets for Dona Wood Oncology Breast Health: Breast Self-Awareness What is breast self-awareness? Breast self-awareness is knowing how your breasts normally look and feel. Your breasts change as you go through different stages of your life. So it?s important to learn what is normal for your breasts. Knowing about your breasts helps you spot any changes in them right away. Tell your healthcare provider about any changes. Why is breast self-awareness important? Many experts now say that women should focus on breast self-awareness instead of doing a breast self-examination (BSE). These experts include the [place] [employer] and the [place] [employer]. Some experts even advise not teaching women to do a BSE. That?s because research hasn?t shown a clear benefit to doing BSEs. Breast self-awareness is different than a BSE. It isn?t about following a certain method and schedule. It?s about knowing what's normal for your breasts. That way you can spot even small changes right away. If you see any changes, tell your healthcare provider. Changes to look for Call your healthcare provider if you find any changes in your breasts that worry you. These changes may be: ?A lump ?Nipple discharge other than breastmilk, especially if it's bloody ?Swelling ?A change in size or shape ?Skin changes, such as redness, thickening, or dimpling of the skin ?Swollen lymph nodes in the armpit ?Nipple problems, such as pain or redness If you find a lump Call your provider if you find lumpiness in one breast. Also call if you feel something different in the tissue or feel a definite lump. Sometimes lumpiness may be due to menstrual changes. But there may be reason for concern. Your provider may want to see you right away if you have: ?Nipple discharge that is bloody ?Skin changes on your breast, such as dimpling or puckering It?s okay to be upset if you find a lump. Be sure to call your provider right away. Remember that most breast lumps are benign. This means they are not cancer. ? 7181-7917 [employer]. [address] [place] [address]. All rights reserved. This information is not intended as a substitute for professional medical care. Always follow your healthcare professional's instructions. Urology Kegel Exercises Kegel exercises don?t need special clothing or equipment. They?re easy to learn and simple to do. And if you do them right, no one can tell you?re doing them, so they can be done almost anywhere. Your healthcare provider, nurse, or physical therapist can answer any questions you have and help you get started. A weak pelvic floor The pelvic floor muscles may weaken due to aging, and vaginal childbirth, injury, surgery, chronic cough, or lack of exercise. If the pelvic floor is weak, your bladder and other pelvic organs may sag out of place. The urethra may also open too easily and allow urine to leak out. Kegel exercises can help you strengthen your pelvic floor muscles. Then they can better support the pelvic organs and control urine flow. How Kegel exercises are done Try each of the Kegel exercises described below. When you?re doing them, try not to move your leg, buttock, or stomach muscles: ?Contract as if you were stopping your urine stream. But do it when you?re not urinating. ?Tighten your rectum as if trying not to pass gas. Contract your anus, but don?t move your buttocks. ?You may place a finger or 2 in the vagina and squeeze your finger with your vagina to learn which muscles to tighten. Try to hold each Kegel for a slow count to 5. You probably won?t be able to hold them for that long at first. But keep practicing. It will get easier as your pelvic floor gets stronger. Eventually, special weights that you place in your vagina may be recommended to help make your Kegels even more effective. Visit your healthcare provider if you have difficulties doing Kegel exercises. Helpful hints Here are some tips to follow: ?Do your Kegels as often as you can. The more you do them, the faster you?ll feel the results. ?Pick an activity you do often as a reminder. For instance, do your Kegels every time you sit down. ?Tighten your pelvic floor before you sneeze, get up from a chair, cough, laugh, or lift. This protects your pelvic floor from injury and can help prevent urine leakage. ? 2898-[address] [employer] [place] [address]. All rights reserved. This information is not intended as a substitute for professional medical care. Always follow your healthcare professional's instructions. [facility] 01-22-2023 Evaluation note Encounter Date Diagnosis Assessment Notes Jan, Cellulit is, neck (ICD-10 - L03.221) Discussed with patient concerning for secondary bacterial infection in area. Will treat with Keflex 3 times daily x7 days. Finish entire course. Keep area clean with soap and water. Apply topical mupirocin ointment to area 3 times daily as well. Avoid scratching or picking at area as can cause lesions to spread. Should follow-up with PCP if not gradually improving over the next 5 to 6 days, sooner if any rapidly spreading erythema, edema, purulent drainage, fever. Patient verbalized understanding of treatment plan. [employer] Other 09-22-2021 Evaluation note* Encounter Date Diagnosis Assessment Notes Treatment Notes Treatment Clinical Notes Feb, Encounter for screening for other viral diseases (ICD-10 - Z11.59) Feb, Other Additional time spent conducting pre-visit phone call, screening for symptoms, instructions on social distancing, application and removal of PPE, and cleaning of examination room, equipment and supplies was preformed. Patient education given for testing methodology and results. Patient care instructions given in writting by [facility] Care At Home document. [employer] Other Evaluation + Plan note Future Appointments Appointment Date:04/13/2022 03:45:00 PM Scheduled Provider:Yogesh KNUTSON, Mio Chaparro Location[facility] - [facility] Type Description Date Surgical History hysterectomy [facility] Other History general Narrative - Reported* Type Description Date Medical History Penfield-Schlatter's disease of ri ght knee Surgical History hysterectomy Surgical History knee arthroscopy [facility] Other Hospital course Narrative No data available for this section [facility] No data available for this section [facility] No data available for this section [facility] Summary Purpose Family History No Family History Records Found No data available for this section No Family History Records FoundNo Family History Records FoundNo Family History Records Found Advance Directives No Advanced Directives Records FoundNo Advanced Directives Records FoundNo Advanced Directives Records FoundNo Advanced Directives Records Found Additional Source Comments INFORMATION SOURCE (unrecogn ized section and content) DATE CREATED AUTHOR 10/01/2021 [facility] DATE CREATED AUTHOR AUTHOR'S ORGANIZ ATION 05/05/[address] [facility] DATE CREATED AUTHOR AUTHOR'S ORGANIZ ATION 05/19/2023 [facility] EPIC DATE CREATED AUTHOR AUTHOR'S ORGANIZ ATION 06/07/2023 [facility] REASON FOR VISIT (unrecogniz ed section and content) #27 BLACK SHERRIE, COVID EXP OSUREBUG BITE ON NECK , ITCHY Patient Care team informatio n (unrecognized section and content) Personnel Name: AMBER LOUIS CNP Address: Address: [address] [place] [address] Personnel Name: AMBER LOUIS CNP Address: Address: [address] [place] [address] Personnel Name: AMBER LOUIS CNP Address: Address: [address] [place] [address] FOR RECORDS PERTAINING TO PATIENTS WHO ARE OR HAVE BEEN ENROLLED IN A CHEMICAL DEPENDENCY/SUBSTANCEABUSE PROGRAM, SOME INFORMATION MAY BE OMITTED. This clinical summary was aggregated from multiple sources. Caution should be exercised in using it in the provision of clinical care. This summary normalizes information from multiple sources, and as a consequence, information in this document may materially change the coding, format and clinical context of patient data. In addition, data may be omitted in some cases. CLINICAL DECISIONS SHOULD BE BASED ON THE PRIMARY CLINICAL RECORDS. [employer] [facility]. provides no warranty or guarantee of the accuracy or completeness of information in this document.
[2023-07-12 20:23] LABS: Influenza Virus A Antigen Negative; Influenza Virus B Antigen Negative; Internal Control Within Normal Limits
[2023-07-12 20:27] LABS: SARS-CoV-2 Ag NEGATIVE (NEGATIVE)
--- NOTE | 2023-07-12 20:35 | ED_ITS ---
HPI - General Adult General Chief complaint: Upper Respiratory Infection Stated complaint: Flu Like Symptoms Time Seen by Provider: 07/12/23 19:58 Source: patient Mode of arrival: walk-in History of Present Illness HPI narrative: 48-year-old female presents to the emergency department with complaint of not feeling well since yesterday morning. Patient complains of generalized body aches, upset stomach, persistent nausea and vomiting. Has had a little sore throat. Denies any fevers, questionable food, abdominal pain, diarrhea, cough, shortness of breath, congestion. Quality: as above Severity: moderate Timing: as above, constant Context: Normal setting and activity Modifying factors: noned Associated symptoms: as above Related Data Previous Rx's Medication Instructions Recorded famotidine 20 mg tablet (Pepcid) 20 mg PO BID 0 days #10 tabs 07/12/23 ondansetron 4 mg disintegrating 4 mg PO Q8H PRN nausea and 07/12/23 tablet vomiting #10 tabs Allergies Allergy/AdvReac Type Severity Reaction Status Date / Time No Known Drug Allergies Allergy Verified 07/12/23 20:04 Review of Systems ROS Narrative CONST: + fatigue. Denies fever, chills HENT: + sore throat. Denies congestion EYES: Denies eye redness, visual disturbance RESP: Denies cough, shortness of breath CV: Denies chest pain, palpitations GI: + nausea, vomting. Denies abd pain, diarrhea : Denies dysuria, flank pain MS: Denies back pain, myalgias SKIN: Denies color change, rash NEURO: Denies numbness, weakness PSYCHIATRIC: Denies confusion, agitation Exam Narrative Exam Narrative: Vital signs reviewed Nurses notes noted CONST: Nontoxic, well appearing, well nourished, in no distress.? No diaphoresis.?? HENT: normocephalic, atraumatic, moist mucous membrane, no abnormalities of the nose noted, hearing normal. TM's, throat clear EYES: normal appearing conjunctiva, no apparent discharge bilat NECK: normal appearance CV: normal rate, regular rhythm, no murmur RESP: normal effort, speaking in complete sentences. Lung sounds clear and equal bilat.? No wheezes, rales, rhonchi GI: normal bowel sounds, soft, no distension, nontender : no CVA tenderness MS: no edema, tenderness SKIN: no pallor NEURO: A&Ox 3, no focal findings PSYCH: normal mood, affect Constitutional Vital Signs, click to edit/add: Last Vital Signs Temp 98.0 F 07/12/23 22:33 Pulse 104 H 07/12/23 22:33 Resp 16 07/12/23 22:33 BP 126/69 07/12/23 22:33 Pulse Ox 96 07/12/23 22:33 O2 Del Method Room Air 07/12/23 20:01 Course Reevaluation(s) Reevaluation #1: Patient feeling better, tolerating by mouth. Time: 22:24 Vital Signs Vital signs: Vital Signs Temperature 98.6 F 07/12/23 20:01 Pulse Rate 115 H 07/12/23 20:01 Respiratory Rate 18 07/12/23 20:01 Blood Pressure 135/87 07/12/23 20:01 Pulse Oximetry 96 07/12/23 20:01 Oxygen Delivery Method Room Air 07/12/23 20:01 Temperature 98.0 F 07/12/23 22:33 Pulse Rate 104 H 07/12/23 22:33 Respiratory Rate 16 07/12/23 22:33 Blood Pressure 126/69 07/12/23 22:33 Pulse Oximetry 96 07/12/23 22:33 Oxygen Delivery Method Room Air 07/12/23 20:01 Medical Decision Making [facility] Narrative Medical decision making narrative: This is a pleasant 48-year-old female presented to the emergency department with complaint of nausea and vomiting since yesterday. States she generally feels ill, body aches. Has had slight runny nose. On arrival, afebrile, tachycardic in a hundred fifteen, otherwise vital signs are stable. On exam, nontoxic, well-appearing patient in no apparent distress. Heart tachycardic, regular rhythm. Lung sounds are clear and equal bilaterally. Abdomen is soft, nontender. Patient was ordered IV fluids, Zofran, Pepcid Labs obtained. Labs reveal no leukocytosis, anemia, thrombocytopenia, electrolyte imbalance, renal impairment. LFTs within normal limits. Lipase forty-two. test is negative. Influenza, COVID screens were all negative. Patient improved as noted above with IV fluids, Zofran, and Pepcid. She was able tolerate by mouth challenge. Likely nonspecific nausea and vomiting, dehydration COVID, influenza less likely based on screens Acute abdomen less likely based on physical exam. Disposition ? The patient was discharged. Plan: Patient will be discharged to home. Condition at time of disposition: stable & improved ?She was discharged home with Refugio Advised to follow up with her provider. Advised to return for any worsening and/or development of new, concerning signs or symptoms Lab Data Labs: Lab Results 07/12/23 07/12/23 Range/Units 20:00 20:38 WBC 9.7 (4.0-11.0) 10^3/uL RBC 3.84 L (4.20-5.40) 10^6/uL Hgb 12.5 (12.0-16.0) g/dL Hct 36.3 (36.0-48.0) % MCV 94.5 (81.0-99.0) fL MCH 32.6 (26.7-34.0) pg MCHC 34.4 (29.9-35.2) g/dL RDW 12.6 (11.0-15.0) % Plt Count 247 (150-450) 10^3/uL MPV 10.1 (9.5-13.5) fL Neut % (Auto) 90.3 H (43.0-75.0) % Lymph % (Auto) 4.7 L (20.5-60.0) % Brown % (Auto) 4.4 (1.7-12.0) % Eos % (Auto) 0.0 L (0.9-7.0) % Baso % (Auto) 0.2 (0.2-2.0) % Neut # (Auto) 8.8 H (1.4-6.5) 10^3/uL Lymph # (Auto) 0.5 L (1.2-3.8) 10^3/uL Brown # (Auto) 0.4 (0.3-0.8) 10^3/uL Eos # (Auto) 0.0 (0.0-0.7) 10^3/uL Baso # (Auto) 0.0 (0.0-0.1) 10^3/uL Abs Immat Gran (auto) 0.04 H (0.00-0.03) 10^3/uL Imm/Tot Granulo (auto) 0.4 (0.0-0.5) % Sodium 137 (136-145) mmol/L Potassium 3.9 (3.5-5.1) mmol/L Chloride 104 (98-107) mmol/L Carbon Dioxide 26.4 (21.0-32.0) mmol/L Anion Gap 10.5 BUN 10.0 (7.0-18.0) mg/dL Creatinine 0.80 (0.55-1.02) mg/dL Est GFR ( Amer) >60 (>=60) Est GFR (Non-Af Amer) >60 (>=60) BUN/Creatinine Ratio 12.5 Glucose 135 H (74-106) mg/dL Calcium 9.2 (8.5-10.1) mg/dL Total Bilirubin 0.5 (0.2-1.0) mg/dL AST 11 L (15-37) U/L ALT 20 (14-59) U/L Alkaline Phosphatase 33 L (46-116) U/L Total Protein 7.4 (6.4-8.2) g/dL Albumin 3.7 (3.4-5.0) g/dL Globulin 3.7 g/dL Albumin/Globulin Ratio 1.0 Lipase 42.0 (16.0-77.0) U/L Serum HCG, Qual Negative (NEGATIVE) Influenza Type A Ag Negative Influenza Type B Ag Negative SARS-CoV-2 Ag (CV2AG) Negative (NEGATIVE) Discharge Plan Discharge Chief Complaint: Upper Respiratory Infection Clinical Impression: Acute dehydration Nausea & vomiting Qualifiers: Vomiting type: unspecified Qualified Code(s): R11.2 - Nausea with vomiting, unspecified Patient Disposition: Home, Self-Care Time of Disposition Decision: 22:21 Condition: Good Prescriptions / Home Meds: New ondansetron 4 mg tablet,disintegrating 4 mg PO Q8H PRN (Reason: nausea and vomiting) Qty: 10 0RF famotidine [Pepcid] 20 mg tablet 20 mg PO BID Qty: 10 0RF Instructions: Dehydration (ED), Acute Nausea and Vomiting (ED) Stand Alone Forms: Portal Instructions Referrals: Amber Louis OFFAL BALER [Primary Care Provider] - 1 week Discharge Date/Time: 07/12/23 22:35
[2023-07-12 20:45] LABS: Basophils Percent Auto 0.2 % (0.2-2.0); Hematocrit 36.3 % (36.0-48.0); Hemoglobin 12.5 g/dL (12.0-16.0); Immature Granulocytes Abs Auto 0.04 10^3/uL (0.00-0.03); Immature Granulocytes Pct Auto 0.4 % (0.0-0.5); Lymphocytes Absolute Auto 0.5 10^3/uL (1.2-3.8); Lymphocytes Percent Auto 4.7 % (20.5-60.0); Mean Corpuscular HGB Conc 34.4 g/dL (29.9-35.2); Mean Corpuscular Hemoglobin 32.6 pg (26.7-34.0); Mean Corpuscular Volume 94.5 fL (81.0-99.0); Mean Platelet Volume 10.1 fL (9.5-13.5); Monocytes Absolute Auto 0.4 10^3/uL (0.3-0.8); Monocytes Percent Auto 4.4 % (1.7-12.0); Neutrophils Absolute Auto 8.8 10^3/uL (1.4-6.5); Neutrophils Percent Auto 90.3 % (43.0-75.0); Platelet Count 247 10^3/uL (150-450); Red Blood Count 3.84 10^6/uL (4.20-5.40); Red Cell Distribution Width 12.6 % (11.0-15.0); White Blood Count 9.7 10^3/uL (4.0-11.0)
[2023-07-12] MEDS: ONDANSETRON PF 4 MG/2 ML VIAL IV (20:55)
[2023-07-12] MEDS: 0.9 % SODIUM CHLORIDE 1,000 ML 999 ML IV (20:55)
[2023-07-12] MEDS: FAMOTIDINE/PF 20 MG/2 ML VIAL IV (20:55)
[2023-07-12 21:00] LABS: Alanine Aminotransferase 20 U/L (14-59); Albumin Level 3.7 g/dL (3.4-5.0); Alkaline Phosphatase 33 U/L (46-116); Anion Gap 10.5; Aspartate Amino Transferase 11 U/L (15-37); BUN Creatinine Ratio 12.5; Bilirubin Total 0.5 mg/dL (0.2-1.0); Calcium 9.2 mg/dL (8.5-10.1); Carbon Dioxide 26.4 mmol/L (21.0-32.0); Chloride 104 mmol/L (98-107); Estimated GFR (African America >60 (>=60); Estimated GFR (Non-African Ame >60 (>=60); Globulin 3.7 g/dL; Glucose 135 mg/dL (74-106); Potassium 3.9 mmol/L (3.5-5.1); Sodium 137 mmol/L (136-145); Total Protein 7.4 g/dL (6.4-8.2)
[2023-07-12 21:04] LABS: HCG Qualitative NEGATIVE (NEGATIVE)
--- NOTE | 2023-07-12 22:02 | PC.NURSE ---
Pt states she is feeling better after fluids and meds, pt is drinking water at this time and is to let RN know if she begins to feel nauseous. Pt verbalized understanding.
[2023-07-12 22:33] VITALS: BP 126/69; PULSE 104; RESP 16; TEMP 36.7; O2SAT 96
== END 2023-07-12 22:35 | disposition home or self-care (01) ==
PROVIDERS: Physician Assistant; Emergency Provider Emergency Medicine; PCP Nurse Practitioner
DX: E86.0 Dehydration (principal); R11.2 Nausea with vomiting, unspecified; Z20.822 Contact with and (suspected) exposure to COVID-19
CPT/HCPCS: 36415; 80053; 83690; 84703; 85025; 87804; 87811; 96374; 96375; 99285; J2405

== ENCOUNTER 2023-08-06 06:20 | Outpatient (OUT) | payer OTHER, SELFPAY ==
--- OUTSIDE RECORDS SUMMARY | 2023-08-06 06:24 | XMS_ITS | CCD ---
Author Name Unknown Address [address] [place] [address] Organization [facility] Care Team Providers Care Public Safety Police Name Role Phone RADHA, BOTTOM CEMENTER AMBER Admitting Unavailable AICHHOLZ, BOTTOM CEMENTER AMBER Attending Unavailable AICHHOLZ, BLAINE AMBER Primary Care Unavailable AICHHOLZ, BOTTOM CEMENTER AMBER Consulting Unavailable MUKESH BOYD Admitting Unavailable MUKESH BOYD Attending Unavailable MUKESH BOYD Consulting Unavailable MISYasmin, DR HELTON Admitting Unavailable MISC, DR HELTON Attending Unavailable DR CAROLINA DAVIS Primary Care Unavailable MISC, DR HELTON Consulting Unavailable Itzel Wilkinson Unavailable AMBER LOUIS Primary Care Physician Kanika Licea Unavailable Brendon Muniz Attending Unavailable Brendon Muniz Admitting Unavailable NADIRA Cates Attending Provider Milka Sullivan PA-C Attending Unavai lable Aichholz THREADING MACHINE FEEDER AUTOMATIC-BOTTOM CEMENTER, Amber Awad Primary Care Unava ilable Aichholz THREADING MACHINE FEEDER AUTOMATIC-BOTTOM CEMENTER, Amber Awad Primary Care Unava ilable Laurie PACherC, Milka Murray Attending Unavai lable Aichholz THREADING MACHINE FEEDER AUTOMATIC-BOTTOM CEMENTER, Amber Awad Primary Care Unava ilable Pamelah PACherC, Milka Murray Attending Unavai lable Aichholz THREADING MACHINE FEEDER AUTOMATIC-BOTTOM CEMENTER, Amber Awad Primary Care Unava ilable Pamelah PA-C, Milka Murray Attending Unavai lable Aichholz THREADING MACHINE FEEDER AUTOMATIC-BOTTOM CEMENTER, Amber Awad Primary Care Unava ilable Laurie BAILEYC, Milka Murray Attending Unavai lable Aichholz THREADING MACHINE FEEDER AUTOMATIC-BOTTOM CEMENTER, Amber Awad Primary Care Milka Banda PA-C Attending Amber Gibson Primary Care Arelisva Milka Chanel PA-C Attending Haley Herron Haley Cates Attending Unavailable Haley Cates Admitting Unavailable AMBER LOUIS Attending Unavailable BRENDON MUNIZ Attending Unavailable BRENDON MUNIZ Attending Unavailable BRENDON MUNIZ Attending Unavailable Allergies Allergy Classification Reported Allergen(s) Allergy Type Date of Onset Reaction(s) Facility (1 source) Acetaminophen / HYDROcodone; Translations: [Vicodin] Drug Allergy [facility] Repository (1 source) Acetaminophen / oxyCODONE; Translations: [Percocet 5/325] Drug Allergy [facility] Repository Medications Current Medications Medication Drug Class(es) Dates Sig (Normalized) Sig (Original) cephalexin 500 mg oral capsule (4 sources) Cephalosporin Antibacterial Start: 07-17-2023 take 1 capsule by mouth every eight hours Cephalexin 500 MG 1 capsule Orally every 8 hrs for 7 Jul, Active Start: 01-22-2023 take 1 capsule by [facility] every eight hours Cephalexin 500 MG 1 capsule Orally TID for 7 days Jan, Not-Taking/PRN fluconazole 150 mg oral tablet (1 source) Azole Antifungal Start: 07-17-2023 Fluconazole 150 MG 1 tablet Orally once, repeat dose in 72 hours if needed for 2 Jul, Active oseltamivir 75 mg oral capsule (2 sources) Neuraminidase Inhibitor Start: 07-13-2023 take 1 capsule by mouth every twelve hours Oseltamivir Phosphate 75 MG 1 capsule Orally Twice a day for 5 day(s) Jul, Active 24 hr phentermine 15 mg / topiramate 92 mg extended release oral capsule (3 sources) Sympathomimetic Amine Anorectic take 1 capsule by mouth every twenty-four hours Qsymia 15-92 MG 1 capsule Orally Once a day Active predniSONE 20 mg oral tablet (2 sources) Start: 07-13-2023 take 1 tablet by mouth every twelve hours prednisone 20 MG 1 tablet Orally BID for 5 Jul, Active Completed/Discontinued Medications Medication Drug Class(es) Dates Sig (Normalized) Sig (Original) mupirocin 0.02 mg/mg topical ointment (3 sources) RNA Synthetase Inhibitor Antibacterial Start: 01-22-2023 Mupirocin 2 % 1 application Externally three times a day for 7 days Jan, Not-Taking/PRN ondansetron 4 mg disintegrating oral tablet (3 sources) Serotonin-3 Receptor Antagonist take 1-2 tablets by mouth every eight hours as needed Ondansetron 4 MG DISSOLVE 1-2 TABLETS ON THE TONGUE EVERY 8 HOURS NEEDED Oral for 7 Days Not-Taking/PRN Problems Active Problems Problem Classification Problem Date Documented Da te Episodic/Chronic Other upper respiratory infections (4 sources) Sore throat symptom; Translations: [Acute pharyngitis, unspecified] Onset: 07-13-2023 Episodic Skin and subcutaneous tissue infections (1 source) Cellulitis of neck Episodic Unclassified (3 sources) CONTACT W/AND (SUSP) EXPOS COVID-19; Translations: [CONTACT W/AND (SUSP) EXPOS COVID-19] Onset: 10-07-2020 Varicose veins of lower extremity (1 source) Pain co-occurrent and due to varicose veins of bilateral legs; Translations: [Varicose veins of bilateral lower extremities with pain] Onset: 04-20-2022 Episodic Viral infection (1 source) Viral infection, unspecified Episodic Past or Other Problems Problem Classification Problem Date Documented Da te Episodic/Chronic Immunizations and screening for infectious disease (1 source) Encounter for screening for other viral diseases; Translations: [Encounter for screening for other viral diseases Z11.59] Onset: 2021 Resolved: 2021 Episodic Other aftercare (4 sources) Other mcfp (current) drug therapy; Translations: [OTH ELEVATORS INSPECTOR CURRENT DRUG THERAPY] Onset: 10-19-2020 Episodic Unclassified (1 source) CONTACT W/AND (SUSP) EXPOS COVID-19; Translations: [CONTACT W/AND (SUSP) EXPOS COVID-19] Onset: 10-04-2020 Results Test Name Value Interpretation Reference Range Facility [facility] 07-13-2023 S. pyogenes Org specific cx Ql (Throat) Negative [facility] Other [facility] Other Throat Cultureon 07-13-2023 Throat culture ORGANISM: Strep dysgalactiae (O:STRDYS) Comments Organism Not Routinely Tested for Susceptibilities Quantity of Growth Heavy Growth PERFORMED BY: [address] [place] [place] [id number] PATHOLOGIST SEARCH DIRECTOR JACQUELYN HAWK M.D. [facility] Comment on above: Performed By: #### C OR #### [address] Gynecology Office/Clinic Not lalit 05-31-2023 Gynecology Office/Clinic [...] Patient was started on compounded Wegovy through [facility]. She denies any side effects such as [...] reviewed the patient?s medication list for medication interactions/contrain dications and/or for upcoming procedures: [yes or no] [...] examination (general) (more content not included)... Normal [facility] Physician Orderon 05-02-2023 Physician Order [id number] Normal [facility] Gynecology Office/Clinic Not lalit 04-26-2023 Gynecology [...] she was unable to attempt this medication. Jnay any side affects but c/o not losing [...] Obesity Discontinue Qsymia. Start compounded semaglutide through [facility] in [place]. We will start with semaglutide 0.3 mg [...] reviewed the patient?s medication list for medication interactions/contrain dications and/or for upcoming procedures: [yes or no] [...] findings E (more content not included)... Normal [facility] Gynecology Office/Clinic Not lalit 02-21-2023 Gynecology Office/Clinic [...] breast cancer is >20%. Based on the [place] [employer] guidelines, she may be a [...] No Sleep Problems: No Suicidal Ideation: No Hematologic/Lymphatic Bleeding tendencies: No Bruising: No Lymphadenopathy: No [...] mg, # 75 mL, 0 Refill(s), Pharmacy: [id number] Misc Medication, BD pen Needle 31 G x 8 mm, See Instructions, use daily with Saxenda injections, # 30 EA, 0 Refill(s), Pharmacy: [id number] 2. Mildly obese Saxenda: Information on Saxenda is give (more content not included)... Normal [facility] CBC AUTO DIFFon 09-29-2021 BASO # 0.0 103/ul Normal 0.0-0.1 [facility] Comment on above: Performed By: #### C BC #### [facility] [address] [place] [address] Dr. Kathie Ryan Basophils/100 WBC (Bld) 0.3 % Normal 0.2-2.0 [facility] Comment on above: Performed By: #### C BC #### [facility] [address] [place] [address] Dr. Kathie Ryan EO # 0.0 103/ul Normal 0.0-0.7 [facility] Comment on above: Performed By: #### C BC #### [facility] [address] [place] [address] Dr. Kathie Ryan Eosinophils/100 WBC (Bld) 0.4 % Critically low 0.9-7.0 [facility] Comment on above: Performed By: #### C BC #### [facility] [address] [place] [address] Dr. Kathie Ryan Erythrocyte distribution width (RBC) [Ratio] 12.2 % Normal 11.0-15.0 [facility] Comment on above: Performed By: #### C BC #### [facility] [address] [place] [address] Dr. Kathie Ryan Hematocrit (Bld) [Volume fraction] 39.1 % Normal 36.0-48.0 [facility] Comment on above: Performed By: #### C BC #### [facility] [address] [place] [address] Dr. Kathie Ryan Hemoglobin (Bld) [Mass/Vol] 12.8 g/dL Normal 12.0-16.0 [facility] Comment on above: Performed By: #### C BC #### [facility] [address] [place] [address] Dr. Kathie Ryan IG # 0.01 10e3/ul Normal 0.00-0.03 [facility] Comment on above: Performed By: #### C BC #### [facility] [address] [place] [address] Dr. Kathie Ryan IG % 0.1 % Normal 0.0-0.5 [facility] Comment on above: Performed By: #### C BC #### [facility] [address] [place] [address] Dr. Kathie Ryan LYMPH # 1.7 103/ul Normal 1.2-3.8 [facility] Comment on above: Performed By: #### C BC #### [facility] [address] [place] [address] Dr. Kathie Ryan Lymphocytes/100 WBC (Bld) 22.0 % Normal 20.5-60.0 [facility] Comment on above: Performed By: #### C BC #### [facility] [address] [place] [address] Dr. Kathie Ryan MANUAL DIFF REQ NO Normal [facility] Comment on above: Performed By: #### C BC #### [facility] [address] [place] [address] Dr. Kathie Ryan MCH (RBC) [Entitic mass] 32.5 pg Normal 26.7-34.0 [facility] Comment on above: Performed By: #### C BC #### [facility] [address] [place] [address] Dr. Kathie Ryan MCHC (RBC) [Mass/Vol] 32.7 g/dL Normal 29.9-35.2 [facility] Comment on above: Performed By: #### C BC #### [facility] [address] [place] [address] Dr. Kathie Ryan MCV (RBC) [Entitic vol] 99.2 fL Critically high 81.0-99.0 [facility] Comment on above: Performed By: #### C BC #### [facility] [address] [place] [address] Dr. Kathie Ryan MONO # 0.5 103/ul Normal 0.3-0.8 [facility] Comment on above: Performed By: #### C BC #### [facility] [address] [place] [address] Dr. Kathie Ryan Monocytes/100 WBC (Bld) 6.0 % Normal 1.7-12.0 [facility] Comment on above: Performed By: #### C BC #### [facility] [address] [place] [address] Dr. Kathie Ryan NEUT # 5.5 103/ul Normal 1.4-6.5 [facility] Comment on above: Performed By: #### C BC #### [facility] [address] [place] [address] Dr. Kathie Ryan Neutrophils/100 WBC (Bld) 71.2 % Normal 43.0-75.0 [facility] Comment on above: Performed By: #### C BC #### [facility] [address] [place] [address] Dr. Kathie Ryan Platelet mean volume (Bld) [Entitic vol] 10.7 fL Normal 9.5-13.5 [facility] Comment on above: Performed By: #### C BC #### [facility] [address] [place] [address] Dr. Kathie Ryan PLT 373 103/ul Normal 150-450 [facility] Comment on above: Performed By: #### C BC #### [facility] [address] [place] [address] Dr. Kathie Ryan RBC 3.94 106/ul Critically low 4.20-5.40 [facility] Comment on above: Performed By: #### C BC #### [facility] [address] [place] [address] Dr. Kathie Ryan WBC 7.7 103/ul Normal 4.0-11.0 [facility] Comment on above: Performed By: #### C BC #### [facility] [address] [place] [address] Dr. Kathie Ryan FREE T4on 09-29-2021 Free T4 [Mass/Vol] 0.85 ng/dL Normal 0.78-2.19 [facility] Comment on above: Performed By: #### F T4 #### [facility] [address] [place] [address] Dr. Kathie Ryan LIPID PROFILEon 09-29-2021 CHOL-HDL RATIO NORM SEE BELOW Normal [facility] Comment on above: Result Comment: 3.3 - 4.4 LOW RISK 4.4 - 7.1 AVERAGE RISK 7.1 - 11.0 MODERATE RISK >11.0 HIGH RISK Performed By: #### T SH, LIPID, CMP #### [facility] [address] [address] [address] Kathie Ryan Cholesterol [Mass/Vol] 243 mg/dL Critically high <=200 [facility] Comment on above: Performed By: #### T SH, LIPID, CMP #### [facility] [address] [address] [address] Kathie Ryan Cholesterol in HDL [Mass/Vol] 88 mg/dL Critically high 40-60 [facility] Comment on above: Performed By: #### T SH, LIPID, CMP #### [facility] [address] [place] [address] Dr. Kathie Ryan Cholesterol in LDL [Mass/Vol] 136.0 mg/dL Normal [facility] Comment on above: Performed By: #### T SH, LIPID, CMP #### [facility] [address] [address] [address] Kathie Ryan Cholesterol.total /Cholesterol in HDL [Mass ratio] 2.8 {ratio} Normal [facility] Comment on above: Performed By: #### T SH, LIPID, CMP #### [facility] [address] [place] [address] Dr. Kathie Ryan HDL NORMAL > or = 60 mg/dl - LO W CARDIOVASCULAR RISK <40 mg/dl - HIGH CARDIOVASCULAR RISK Normal [facility] Comment on above: Performed By: #### T SH, LIPID, CMP #### [facility] [address] [place] [address] Dr. Kathie Ryan LDL CALC NORMAL SEE BELOW Normal [facility] Comment on above: Result Comment: <100 mg/dl OPTIMAL 100 - 129 mg/dl NEAR OR ABOVE OPTIMAL 130 - 159 mg/dl BORDERLINE HIGH 160 - 189 mg/dl HIGH >190 mg/dl VERY HIGH Performed By: #### T SH, LIPID, CMP #### [facility] [address] [address] [address] Kathie Ryan Triglyceride [Mass/Vol] 95 mg/dL Normal <=150 [facility] Comment on above: Performed By: #### T CRISTINA, LIPID, CMP #### [facility] [address] [place] [address] Dr. Kathie Ryan VLDL CALC 19.0 mg/dL Normal [facility] Comment on above: Performed By: #### T CRISTINA LIPID, CMP #### [facility] [address] [place] [address] Dr. Kathie Ryan PROF 14(COMP METB)on 022 Albumin [Mass/Vol] 3.9 g/dL Normal 3.4-5.0 [facility] Comment on above: Performed By: #### T CRISTINA, CMP #### [facility] [address] [place] [address] Luis A Bhavani Albumin/Globulin [Mass ratio] 1.1 {ratio} Normal [facility] Comment on above: Performed By: #### T CRISTINA, CMP #### [facility] [address] [place] [address] Luis A Bhavani ALP [Catalytic activity/Vol] 44 U/L Critically low 46-116 [facility] Comment on above: Performed By: #### T CRISTINA, CMP #### [facility] [address] [place] [address] Luis A Bhavani ALT [Catalytic activity/Vol] 38 U/L Normal 14-59 [facility] Comment on above: Performed By: #### T CRISTINA, CMP #### [facility] [address] [place] [address] Luis A Bhavani Anion gap [Moles/Vol] 11.0 mmol/L Normal [facility] Comment on above: Performed By: #### T CRISTINA, CMP #### [facility] [address] [place] [address] Luis A Bhavani AST [Catalytic activity/Vol] 17 U/L Normal 15-37 [facility] Comment on above: Performed By: #### T CRISTINA, CMP #### [facility] [address] [place] [address] Luis A Bhavani Bilirubin [Mass/Vol] 0.4 mg/dL Normal 0.2-1.3 [facility] Comment on above: Performed By: #### T SH, CMP #### [facility] [address] [place] [address] Luis A Bhavani Calcium [Mass/Vol] 9.2 mg/dL Normal 8.5-10.1 [facility] Comment on above: Performed By: #### T SH, CMP #### [facility] [address] [place] [address] Luis A Bhavani Chloride [Moles/Vol] 102 mmol/L Normal 98-107 [facility] Comment on above: Performed By: #### T SH, CMP #### [facility] [address] [place] [address] Luis A Bhavani CO2 [Moles/Vol] 28.1 mmol/L Normal 22.0-30.0 [facility] Comment on above: Performed By: #### T CRISTINA, CMP #### [facility] [address] [place] [address] Luis A Bhavani Creatinine [Mass/Vol] 0.61 mg/dL Normal 0.52-1.04 [facility] Comment on above: Performed By: #### T CRISTINA, CMP #### [facility] [address] [place] [address] Luis A Bhavani EGFR-AF QATARI >60 Normal >=60 [facility] Comment on above: Performed By: #### T SH, CMP #### [facility] [address] [place] [address] Luis A Bhavani EGFR-NON AF QATARI >60 Normal >=60 [facility] Comment on above: Performed By: #### T SH, CMP #### [facility] [address] [place] [address] Luis A Bhavani Globulin (S) [Mass/Vol] 3.7 g/dL Normal [facility] Comment on above: Performed By: #### T SH, CMP #### [facility] [address] [place] [address] Luis A Bhavani Glucose [Mass/Vol] 95 mg/dL Normal 74-106 [facility] Comment on above: Performed By: #### T SH, CMP #### [facility] [address] [id number] Luis A Bhavani Potassium [Moles/Vol] 4.1 mmol/L Normal 3.4-5.0 [facility] Comment on above: Performed By: #### T SH, CMP #### [facility] [address] [id number] Luis A Bhavani Protein [Mass/Vol] 7.6 g/dL Normal 6.1-8.2 [facility] Comment on above: Performed By: #### T SH, CMP #### [facility] [address] [id number] Luis A Bhavani Sodium [Moles/Vol] 137 mmol/L Normal 137-145 [facility] Comment on above: Performed By: #### T SH, CMP #### [facility] [address] [place] [address] Luis A Bhavani Urea nitrogen [Mass/Vol] 12.0 mg/dL Normal 7.0-18.0 [facility] Comment on above: Performed By: #### T SH, CMP #### [facility] [address] [place], [place] [id number] Luis A Bhavani Urea nitrogen/Creatini ne [Mass ratio] 19.7 mg/mg Normal [facility] Comment on above: Performed By: #### T SH, CMP #### [facility] [address] [id number] Luis A Bhavani TSHon 09-29-2021 TSH 1.840 uIU/mL Normal 0.470-4.680 [facility] Comment on above: Performed By: #### T SH, LIPID, CMP #### [facility] [address] [place], [place] [id number] Dr. Kathie Ryan TSH RANGE SEE BELOW Normal [facility] Comment on above: Result Comment: <0.3 4 UIU/ml HYPERTHYROID 0.34-5.60 UIU/ml EUTHYROID >5.60 UIU/ml HYPOTHYROID Performed By: #### T SH, LIPID, CMP #### [facility] [address] [place] [address] Dr. Kathie Ryan CBC AUTO DIFFon 10-19-2020 BASO # 0.0 103/ul Normal 0.0-0.1 [facility] Comment on above: Performed By: #### C BC #### [facility] [address] [place], [place] [id number] Luis A Bhavani Basophils/100 WBC (Bld) 0.7 % Normal 0.2-2.0 [facility] Comment on above: Performed By: #### C BC #### [facility] [address] [place], [place] [id number] Luis A Bhavani EO # 0.1 103/ul Normal 0.0-0.7 [facility] Comment on above: Performed By: #### C BC #### [facility] [address] [place] [address] Luis A Bhavani Eosinophils/100 WBC (Bld) 1.2 % Normal 0.9-7.0 [facility] Comment on above: Performed By: #### C BC #### [facility] [address] [place] [address] Luis A Bhavani Erythrocyte distribution width (RBC) [Ratio] 12.5 % Normal 11.0-15.0 [facility] Comment on above: Performed By: #### C BC #### [facility] [address] [place], [place] [id number] Luis A Bhavani Hematocrit (Bld) [Volume fraction] 36.9 % Normal 36.0-48.0 [facility] Comment on above: Performed By: #### C BC #### [facility] [address] [place], [place] [id number] Luis A Bhavani Hemoglobin (Bld) [Mass/Vol] 12.3 g/dL Normal 12.0-16.0 [facility] Comment on above: Performed By: #### C BC #### [facility] [address] [place], [place] [id number] Luis A Bhavani IG # 0.01 10e3/ul Normal 0.00-0.03 [facility] Comment on above: Performed By: #### C BC #### [facility] [address] [place] [address] Luis A Bhavani IG % 0.2 % Normal 0.0-0.5 [facility] Comment on above: Performed By: #### C BC #### [facility] [address] [place] [address] Luis Aheri Beckham LYMPH # 2.0 103/ul Normal 1.2-3.8 [facility] Comment on above: Performed By: #### C BC #### [facility] [address] [place] [address] Luis Aheri Beckham Lymphocytes/100 WBC (Bld) 35.4 % Normal 20.5-60.0 [facility] Comment on above: Performed By: #### C BC #### [facility] [address] [place] [address] Luis A Beckham MANUAL DIFF REQ NO Normal [facility] Comment on above: Performed By: #### C BC #### [facility] [address] [place] [address] Luis Aheri Griffithen MCH (RBC) [Entitic mass] 32.6 pg Normal 26.7-34.0 [facility] Comment on above: Performed By: #### C BC #### [facility] [address] [place] [address] Luis Aheri Beckham MCHC (RBC) [Mass/Vol] 33.3 g/dL Normal 29.9-35.2 [facility] Comment on above: Performed By: #### C BC #### [facility] [address] [place] [address] Luis Aheri Beckham MCV (RBC) [Entitic vol] 97.9 fL Normal 81.0-99.0 [facility] Comment on above: Performed By: #### C BC #### [facility] [address] [place] [address] Luis A Bhavani MONO # 0.4 103/ul Normal 0.3-0.8 [facility] Comment on above: Performed By: #### C BC #### [facility] [address] [place], [place] [id number] Luis A Bhavani Monocytes/100 WBC (Bld) 6.2 % Normal 1.7-12.0 [facility] Comment on above: Performed By: #### C BC #### [facility] [address] [place], [place] [id number] Luis A Beckham NEUT # 3.2 103/ul Normal 1.4-6.5 [facility] Comment on above: Performed By: #### C BC #### [facility] [address] [place], [place] [id number] Luis A Beckham Neutrophils/100 WBC (Bld) 56.3 % Normal 43.0-75.0 [facility] Comment on above: Performed By: #### C BC #### [facility] [address] [place], [place] [id number] Luis A Beckham Platelet mean volume (Bld) [Entitic vol] 10.3 fL Normal 9.5-13.5 [facility] Comment on above: Performed By: #### C BC #### [facility] [address] [place], [place] [id number] Luis Aheri Griffithen PLT 295 103/ul Normal 150-450 [facility] Comment on above: Performed By: #### C BC #### [facility] [address] [place], [place] [id number] Luis A Bhavani RBC 3.77 106/ul Critically low 4.20-5.40 [facility] Comment on above: Performed By: #### C BC #### [facility] [address] [place], [place] [id number] Luis Aheri Griffithen WBC 5.7 103/ul Normal 4.0-11.0 [facility] Comment on above: Performed By: #### C BC #### [facility] [address] [place], [place] [id number] Luis A Bhavani PROF 14(COMP METB)on 021 Albumin [Mass/Vol] 3.8 g/dL Normal 3.5-5.0 [facility] Comment on above: Performed By: #### T SH, CMP #### [facility] [address] [place], [place] [id number] Luis Aheri Beckham Albumin/Globulin [Mass ratio] 1.0 {ratio} Normal [facility] Comment on above: Performed By: #### T CRISTINA, CMP #### [facility] [address] [id number] Luis A Bhavani ALP [Catalytic activity/Vol] 31 U/L Critically low 38-126 [facility] Comment on above: Performed By: #### T CRISTINA, CMP #### [facility] [address] [id number] Luis A Bhavani ALT [Catalytic activity/Vol] 26 U/L Normal 9-52 [facility] Comment on above: Performed By: #### T CRISTINA, CMP #### [facility] [address] [address] Luis A Bhavani Anion gap [Moles/Vol] 14.7 mmol/L Normal [facility] Comment on above: Performed By: #### T CRISTINA, CMP #### [facility] [address] [place] [address] Luis A Bhavani AST [Catalytic activity/Vol] 14 U/L Normal 14-36 [facility] Comment on above: Performed By: #### T CRISTINA, CMP #### [facility] [address] [place] [address] Luis A Bhavani Bilirubin [Mass/Vol] 0.6 mg/dL Normal 0.2-1.3 [facility] Comment on above: Performed By: #### T CRISTINA, CMP #### [facility] [address] [place] [address] Luis A Bhavani Calcium [Mass/Vol] 9.0 mg/dL Normal 8.4-10.2 [facility] Comment on above: Performed By: #### T CRISTINA, CMP #### [facility] [address] [place] [address] Luis A Bhavani Chloride [Moles/Vol] 105 mmol/L Normal 98-107 [facility] Comment on above: Performed By: #### T CRISTINA, CMP #### [facility] [address] [place] [address] Luis A Bhavani CO2 [Moles/Vol] 24.5 mmol/L Normal 22.0-30.0 [facility] Comment on above: Performed By: #### T SH, CMP #### [facility] [address] [place] [address] Luis A Bhavani Creatinine [Mass/Vol] 0.81 mg/dL Normal 0.52-1.04 [facility] Comment on above: Performed By: #### T SH, CMP #### [facility] [address] [place] [address] Luis A Bhavani EGFR-AF QATARI >60 Normal >=60 [facility] Comment on above: Performed By: #### T SH, CMP #### [facility] [address] [place] [address] Luis A Bhavani EGFR-NON AF QATARI >60 Normal >=60 [facility] Comment on above: Performed By: #### T SH, CMP #### [facility] [address] [place] [address] Luis A Bhavani Globulin (S) [Mass/Vol] 3.7 g/dL Normal [facility] Comment on above: Performed By: #### T CRISTINA, CMP #### [facility] [address] [place] [address] Luis A Bhavani Glucose [Mass/Vol] 94 mg/dL Normal 74-106 [facility] Comment on above: Performed By: #### T SH, CMP #### [facility] [address] [place] [address] Luis A Bhavani Potassium [Moles/Vol] 4.2 mmol/L Normal 3.4-5.0 [facility] Comment on above: Performed By: #### T CRISTINA, CMP #### [facility] [address] [place] [address] Luis A Bhavani Protein [Mass/Vol] 7.5 g/dL Normal 6.1-8.2 [facility] Comment on above: Performed By: #### T SH, CMP #### [facility] [address] [place] [address] Luis A Bhavani Sodium [Moles/Vol] 140 mmol/L Normal 137-145 [facility] Comment on above: Performed By: #### T CRISTINA, CMP #### [facility] [address] [place] [address] Luis A Bhavani Urea nitrogen [Mass/Vol] 16.0 mg/dL Normal 7.0-17.0 [facility] Comment on above: Performed By: #### T CRISTINA, CMP #### [facility] [address] [place] [address] Luis A Bhavani Urea nitrogen/Creatini ne [Mass ratio] 19.8 mg/mg Normal [facility] Comment on above: Performed By: #### T CRISTINA, CMP #### [facility] [address] [place] [address] Luis A Bhavani TSHon 10-19-2020 TSH 3.533 uIU/mL Normal 0.470-4.680 [facility] Comment on above: Performed By: #### T CRISTINA, CMP #### [facility] [address] [place] [address] Luis A Bhavani TSH RANGE SEE BELOW Normal [facility] Comment on above: Result Comment: <0.3 4 UIU/ml HYPERTHYROID 0.34-5.60 UIU/ml EUTHYROID >5.60 UIU/ml HYPOTHYROID Performed By: #### T CRISTINA, CMP #### [facility] [address] [place] [address] Luis A Griffithen VITAMIN B12on 10-19-2020 Cobalamin (Vitamin B12) [Mass/Vol] 418.0 pg/mL Normal 239.0-931.0 [facility] Comment on above: Performed By: #### V ITB12, VITAD #### [facility] [address] [place] [address] Luis A Bhavani VITAMIN D 25 OHon 10-19-2020 VIT D 25-OH 35.0 ng/mL Normal [facility] Comment on above: Performed By: #### V ITB12, VITAD #### [facility] [address] [place], [place] [id number] Luis A Bhavani VIT D RANGES SEE BELOW Normal [facility] Comment on above: Result Comment: <20 ng/mL Vit D deficient 20 - <30 ng/mL Vit D insufficient 30 - 100 ng/mL Vit D sufficient >100 ng/mL Potential Toxicity Performed By: #### V ITB12, VITAD #### [facility] [address] [place], [place] [address] Luis A Beckham Covid-19 PCR (CVDTB)on 09-10 Sample Type Test performed using RT-PCR from a nasopharyngeal collected specimen. Normal [facility] Comment on above: Performed By: #### C VDTBH #### [facility] [address] [place], [place] [address] Luis A Beckham SARS-CoV-2 (COVID-19) RNA LION+probe Ql (Unsp spec) Not detected Normal NOT DETECTED [facility] Comment on above: Result Comment: This test is not yet approved or cleared by the [place] FDA. When there are no FDA-approved or cleared tests available, and other criteria are met, FDA can make tests available under an emergency access mechanism called an Emergency Use Authorization (EUA). The EUA for this test is supported by the [place] of Health and Human Service's (HHS's) declaration [...] SARS-CoV-2. Performed By: #### C VDTBH #### [facility] [address] [place], [place] [address] Luis A Beckham Vital Signs Date Time Vital Sign Value Performing Clinician Facility 07-13-2023 17:00-0500 Body height 162.56 cm Haley Cates Other [facility] Other 07-13-2023 17:00-0500 Body mass index (BMI) [Ratio] 27.46 kg/m2 Haley Cates Other [facility] Other 07-13-2023 17:00-0500 Body temperature 97.8 [degF] Haley Darryn Other [facility] Other 07-13-2023 17:00-0500 Body weight 72.58 kg Haley Darryn Other [facility] Other 07-13-2023 17:00-0500 Diastolic blood pressure 89 mm[Hg] Haley Cates Other [facility] Other 07-13-2023 17:00-0500 Respiratory rate 18 /min Haley Cates Other [facility] Other 07-13-2023 17:00-0500 SaO2% (BldA) [Mass fraction] 98 % Haley Cates Other [facility] Other 07-13-2023 17:00-0500 Systolic blood pressure 138 mm[Hg] Haley Cates Other [facility] Other 01-22-2023 17:25-0400 Body height 162.56 cm Kanika Licea Other [facility] Other 01-22-2023 17:25-0400 Body mass index (BMI) [Ratio] 27.29 kg/m2 Kanika Licea Other [facility] Other 01-22-2023 17:25-0400 Body temperature 97.3 [degF] Kainka Licea Other [facility] Other 01-22-2023 17:25-0400 Body weight 72.12 kg Kanika Licea Other [facility] Other 01-22-2023 17:25-0400 Diastolic blood pressure 85 mm[Hg] Kanika Licea Other [place] [employer] Other 01-22-2023 17:25-0400 Respiratory rate 18 /min Kanika Wayneley Other [facility] Other 01-22-2023 17:25-0400 SaO2% (BldA) [Mass fraction] 98 % Kanika Licea Other [facility] [employer] Other 01-22-2023 17:25-0400 Systolic blood pressure 152 mm[Hg] Kanika Wayneley Other [facility] [employer] Other 04-20-2022 15:48-0500 Diastolic blood pressure 102 mm[Hg] Mohamed Yogesh [facility] 04-20-2022 15:48-0500 Mean blood pressure 122 mm[Hg] Mohamed Yogesh [facility] 04-20-2022 15:48-0500 Systolic blood pressure 161 mm[Hg] Mohamed Yogesh [facility] 04-20-2022 15:34-0500 Blood Pressure Location Mohamed Yogesh [facility] 04-20-2022 15:34-0500 Diastolic blood pressure 62 mm[Hg] Mohamed Yogesh [facility] 04-20-2022 15:34-0500 Heart rate 87 /min Mohamed Yogesh [facility] 04-20-2022 15:34-0500 SaO2% (BldA) [Mass fraction] 100 % Mohamed Yogesh [facility] 04-20-2022 15:34-0500 Systolic blood pressure 175 mm[Hg] Mohamed Yogesh [facility] Encounters Encounter Date Encounter Type Care Provider Facility Start: 07-31-2023 End: 07-31-2023 ambulatory AMBER LOUIS Not Available Start: 07-17-2023 End: 07-17-2023 ambulatory Haley Cates Other [facility] [employer] Other Start: 07-17-2023 Telephone encounter Haley Cates [facility] [address] Start: 07-13-2023 End: 07-13-2023 ambulatory Haley Cates Facility:[facility] Start: 07-13-2023 End: 07-13-2023 Departed Referred NADIRA Cates Work Phone: [facility] [place] Work Phone: Start: 07-13-2023 End: 07-13-2023 ambulatory NADIRA Cates Work Phone: [facility] Work Phone: Start: 07-13-2023 Office outpatient vi sit 25 minutes Haley Cates [facility] Start: 05-31-2023 End: 06-01-2023 ambulatory 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 Facility:[facility] Start: 05-17-2023 End: 05-17-2023 ambulatory BRENDON MUNIZ Not Available Start: 05-10-2023 End: 05-10-2023 ambulatory BRENDON Stefanie MUNIZ Not Available Start: 05-02-2023 End: 05-03-2023 ambulatory Brendon A Flavio [place] Start: 05-02-2023 End: 05-02-2023 Lab Drop off Brendon Muniz [facility] Start: 05-02-2023 End: 05-02-2023 ambulatory BRENDON A BROWN Not Available Start: 04-26-2023 End: 04-27-2023 ambulatory 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 Facility:[facility] Start: 02-21-2023 ambulatory Amber Delmi Pachecoho lz THREADING MACHINE FEEDER AUTOMATIC-BOTTOM CEMENTER Facility:[facility] Start: 02-21-2023 End: 02-22-2023 ambulatory Milka Sullivan PA-C Facility:[facility] Start: 01-22-2023 End: 01-22-2023 ambulatory Kanika Licea Other [facility] Other Start: 01-22-2023 Office outpatient vi sit 15 minutes Kanika Licea [facility] Start: 04-20-2022 End: 04-20-2022 [facility] Start: 03-29-2022 End: 03-29-2022 [facility] Start: 09-30-2021 Encounter for genera l adult medical examination without abnormal findings BOTTOM CEMENTER AMBER [facility] Start: 09-29-2021 End: 09-30-2021 ambulatory BOTTOM CEMENTER AMBER [facility] Facility:[facility] Start: 09-29-2021 End: 09-30-2021 Encounter for general adult medical examination without abnormal findings BOTTOM CEMENTER AMBER [facility] Facility:[facility] Start: 2021 Office outpatient vi sit 5 minutes Itzel Wilkinson [facility] Start: 10-19-2020 End: 10-20-[address] DOCTOR GAMA Facility:[facility] Start: 10-04-2020 End: 10-04-2020 ambulatory MUKESH BOYD Facility:[facility] Plan of Treatment Date Care Activity Detail Author Start: 07-13-2023 Throat culture Throat Culture [facility] Bacteria identified in Throat by Aerobe culture [facility] Payers Date Payer Category Payer Self-pay [id number] 2022 Unknown [id number] 2. [id number] 2022 Unknown 1974 Unknown [id number] 2.16.84 0.1.620288.3.579.2.593 1974 Unknown [id number] 2.16.84 0.1.454442.3.579.2.593 1974 Unknown [id number] 2.16.84 0.1.654293.3.579.2.593 1974 Unknown [id number] 2.16.8 40.1.528838.3.579.2.727 1974 Unknown [id number] 2.16. 840.1.178592.3.579.2.196 1974 Unknown [id number] 2.16. 840.1.154372.3.579.2.196 1974 Unknown [id number] 2.16. 840.1.938697.3.579.2.196 1974 Unknown [id number] 2.16. 840.1.438307.3.579.2.196 1974 Unknown [id number] 2.16. 840.1.490750.3.579.2.196 1974 Unknown [id number] 2.16. 840.1.326529.3.579.2.196 1974 Unknown [id number] 2.16. 840.1.071028.3.579.2.196 1974 Unknown [id number] 2.16.84 0.1.308246.3.579.2.1259 1974 Unknown [id number] 2.16.840 .1.790945.3.579.2.1259 1974 Unknown [id number] 2.16.840 .1.577615.3.579.2.1259 1974 Unknown [id number] 2.16.840 .1.001906.3.579.2.1259 1959 Unknown [id number] Unknown [id number] 2.16.8 40.1.807078.3.579.2.531 Social History Date Type Detail Facility Unknown if ever smoked [facility] [employer] Other Sex Assigned At [facility] Tobacco smoking status No Smokin g Status Entered [facility] Start: 04-20-2022 Tobacco smoking status Never s moked tobacco (finding) [facility] Tobacco smoking status Never [facility] Start: 1975 Sex Assigned At Female F [facility] Functional Status Date Assessment Result Facility 04-20-2022 Functional Status No [facility] Clinical Notes 2021 to 07-13-2023 Note Date & Type Note Facility 07-13-2023 Evaluation note Encounter Date Diagnosis Assessment Notes Jul, Sore throat (ICD-10 - J02.9) Jul, Viral illness (ICD-10 - B34.9) Advised patient that rapid Strep test was negative today. Throat culture obtained, will call with results in 2 to 5 days, at time of results treatment plan may change. Advised patient that testing might not have been accurate from ER, as symptoms had been going on less than 24 hours. Advised that physical exam is consistent with influenza. Will send in Rx of Tamiflu to use as directed. Use Rx of prednisone as directed. Encouraged supportive care as directed, increase fluids and rest, Tylenol as directed, OTC cough/cold remedies as directed on packaging, cool mist humidifier, throat lozenges. Discussed infection control practices such as good hand washing and mask wearing. Patient to follow up with PCP if symptoms persist or worsen despite treatment. Immediate eval for SOB, difficulty breathing, chest pain, fevers that do not break with antipyretic or any other concerning symptoms as reviewed on patient education handout. Patient verbalizes understanding and is agreeable to treatment plan. Patient left in stable condition. [facility] [employer] Other 12-15-2023 NotePatient Education Materials Name: Dona Pat Current Date: 05/25/2023 13:51:50 [place] : 1975 The following sheet(s) are the Patient Education Leaflets for Dona Pat Nutrition 4 Steps for Eating Healthier Changing the way you eat can improve your health. It can lower your cholesterol and blood pressure,and help you stay at a healthy weight. Your diet doesn?t have to be bland and boring to be healthy.Just watch your calories and follow these steps: [...] fiber increase to help prevent constipation. ? 5051-1470 [employer]. [address] [place] [address], [place] [address]. All rights reserved. This information is not intended as a substitute for professional medical care. Always follow your healthcare professional's instructions.[facility]09-13-2023 NoteBREAST IMAGING CONSULTATION: 02/21/2023 CLINICAL: Screening. Comparison is made to exams dated: 02/15/2022 mammogram, 02/16/2021 mammogram, 02/09/2021 mammogram, 02/04/2020 mammogram, and 03/06/2019 mammogram - [facility]. The tissue of both breasts is extremely [...] breast cancer is 37.4%. Based upon the [place] [employer] guidelines 20% and higher: she [...] may not be detected on mammograms. The [place] [employer] supports annual screening mammography starting at age 40. Megan palma/terrence:02/21/2023 13:43:27 copy to: Amber Louis NP, ph: [phone], fax: [phone] Airframe Technician(s): RT Nancy(R)(M)(CT), [facility] letter sent: New Mammo Normal B1/2 Mammogram BI-RADS: 1 Negative Final Dictated by: Megan Kuo DO Signed by: Megan Kuo DO Signed (Electronic Signature): 02/21/2023 1:43 pm (If Report Is Signed, Electronically Signed in Other Vendor System)[facility]09-07-2023 NotePatient Education Materials Name: Dona Pat Current Date: 02/15/2023 11:23:36 Joanna[facility] : 1975 The following sheet(s) are the Patient Education Leaflets for Dona Pat Oncology Breast Health: Breast Self-Awareness What is [...] breast self-examination (BSE). These experts include the [place] [employer] and the [place] [employer]nec[employer]. Some experts [...] in your breasts that worry you. These changesmay be: ?A lump ?Nipple discharge other than [...] may be due to menstrual changes. But theremay be reason for concern. Your provider may want to see you right away if you have: ?Nipple discharge that is bloody ?Skin changes on your breast, such as dimpling or puckering It?s okay to be upset if you find a lump. Be sure to call your provider right away. Remember that most breast lumps are benign. This means they are not cancer. ? 3488-5269 [employer]. [address] [place] [address]. All rights reserved. This information is not [...] be able to hold them for that longat first. But keep practicing. It will get [...] and can help prevent urine leakage. ? 0766-4550 [employer]. [address] [place] [address]. All rights reserved. This information is not intended as a substitute for professional medical care. Always follow your healthcare professional's instructions.[facility]08-14-2023 Evaluation note* Encounter Date Diagnosis Assessment Notes Treatment Notes Treatment Clinical Notes Jan, Cellulitis, neck (ICD-10 - L03.221) Discussed with patient [...] fever. Patient verbalized understanding of treatment plan. [facility] Other 09-22-2021 Evaluation note* Encounter Date Diagnosis [...] Patient care instructions given in writting by [facility] Care At Home document. [facility] Other Evaluation + Plan note Future Appointments Appointment Date:04/13/2022 03:45:00 PM Scheduled Provider:Yogesh KNUTSON, Mio Chaparro Location:[facility] App[facility] assessment information available [facility] Work Phone: Evaluation noteNo InformationNortEncompass Health [facility] [employer] Other Hisasxu general Narrative - Reported* Type Description Date Surgical History hysterectomy [facility] [employer] Other Hiszpxq general Narrative - Reported* Type Description Date Medical History [place]-Schlatter's disease of ri ght knee Surgical History hysterectomy Surgical History knee arthroscopy [facility] [employer] Other Hisefdd general Narrative - Reported* Type Description Date Medical History Diya-Schlatter's disease of ri ght knee Surgical History hysterectomy Surgical History knee arthroscopy Surgical History foot cyst removal [facility] [employer] Other Hospital course Narrative No data available for this section [facility] No data available for this section [facility] No data available for this section [facility] Summary Purpose Family History No Family [...] and content) DATE CREATED AUTHOR 10/01/2021 [facility] DATE CREATED AUTHOR AUTHOR'S ORGANIZ ATION 05/05/2023 [facility] DATE CREATED AUTHOR AUTHOR'S ORGANIZ ATION 07/15/2023 [facility] DATE CREATED AUTHOR AUTHOR'S ORGANIZ ATION 07/22/2023 [facility] DATE CREATED AUTHOR AUTHOR'S ORGANIZ ATION 08/01/2023 [facility] EPIC REASON FOR VISIT (unrecogniz ed section and content) #27 BLACK SHERRIE, COVID EXP OSUREBUG BITE ON NECK , ITCHYSORE THROAT, AT ER YESTERDAYNo Information Patient Care team informatio n (unrecognized section and content) Team Status: Inactive Member Role Status Dates Haley Jolly NADIRA Cates Attending Provider Active Start: July 13, 2023 End: July 13, 2023 Goals (unrecognized section and content) Goals may be documented in a n alternate section FOR RECORDS PERTAINING TO PATIENTS WHO ARE [...] BE BASED ON THE PRIMARY CLINICAL RECORDS. [facility] [employer] provides no warranty or guarantee of the accuracy or completeness of information in this document.
[2023-08-06 06:50] LABS: Basophils Percent Auto 0.5 % (0.2-2.0); Eosinophils Absolute Auto 0.1 10^3/uL (0.0-0.7); Hematocrit 36.8 % (36.0-48.0); Hemoglobin 12.2 g/dL (12.0-16.0); Immature Granulocytes Abs Auto 0.02 10^3/uL (0.00-0.03); Immature Granulocytes Pct Auto 0.3 % (0.0-0.5); Lymphocytes Absolute Auto 1.9 10^3/uL (1.2-3.8); Lymphocytes Percent Auto 31.1 % (20.5-60.0); Mean Corpuscular HGB Conc 33.2 g/dL (29.9-35.2); Mean Corpuscular Hemoglobin 32.4 pg (26.7-34.0); Mean Corpuscular Volume 97.9 fL (81.0-99.0); Mean Platelet Volume 9.8 fL (9.5-13.5); Monocytes Absolute Auto 0.4 10^3/uL (0.3-0.8); Monocytes Percent Auto 5.8 % (1.7-12.0); Neutrophils Absolute Auto 3.8 10^3/uL (1.4-6.5); Neutrophils Percent Auto 61.3 % (43.0-75.0); Platelet Count 340 10^3/uL (150-450); Red Blood Count 3.76 10^6/uL (4.20-5.40); White Blood Count 6.2 10^3/uL (4.0-11.0)
[2023-08-06 06:59] LABS: Erythrocyte Sedimentation Rate 9 mm/hr (<=20)
[2023-08-06 07:26] LABS: Alanine Aminotransferase 26 U/L (14-59); Albumin Globulin Ratio 0.9; Albumin Level 3.4 g/dL (3.4-5.0); Alkaline Phosphatase 37 U/L (46-116); Anion Gap 8.2; Aspartate Amino Transferase 14 U/L (15-37); BUN Creatinine Ratio 13.3; Bilirubin Total 0.5 mg/dL (0.2-1.0); C Reactive Protein <0.50 mg/dL (<=0.50); Calcium 8.5 mg/dL (8.5-10.1); Carbon Dioxide 30.3 mmol/L (21.0-32.0); Chloride 104 mmol/L (98-107); Estimated GFR (African America >60 (>=60); Estimated GFR (Non-African Ame >60 (>=60); Globulin 3.6 g/dL; Glucose 90 mg/dL (74-106); Potassium 3.5 mmol/L (3.5-5.1); Sodium 139 mmol/L (136-145); Uric Acid 2.4 mg/dL (2.6-6.0)
[2023-08-07 06:08] LABS: Antistreptolysin O Ab 1032.8 IU/mL (0.0-200.0); Rheumatoid Factor (RF) 11.2 IU/mL (<14.0)
[2023-08-08 12:10] LABS: Antinuclear Antibodies, IFA Negative (.)
== END 2023-08-06 06:21 | disposition home or self-care (01) ==
LOC: LAB 06:22
PROVIDERS: PCP Nurse Practitioner; Visit Provider Nurse Practitioner
DX: L52 Erythema nodosum (principal)
CPT/HCPCS: 36415; 80053; 84550; 85025; 85652; 86038; 86060; 86140; 86431

== ENCOUNTER 2024-08-08 07:12 | Outpatient (OUT) | payer OTHER, SELFPAY ==
--- OUTSIDE RECORDS SUMMARY | 2024-08-08 07:16 | XMS_ITS | CCD ---
Author Organization [facility] Care Team Providers Care Heel Sander Rubber Name Role Phone MISSY AIRPORT OPERATIONS COORDINATOR AMBER Admitting Unavailable AICHHOLZ, AIRPORT OPERATIONS COORDINATOR AMBER Attending Unavailable AICHHOLZ, BLAINE AMBER Primary Care Unavailable AICHGISELLA, AIRPORT OPERATIONS COORDINATOR AMBER Consulting Unavailable MUKESH BOYD Admitting Unavailable MUKESH BOYD Attending Unavailable MUKESH BOYD Consulting Unavailable MISC, DR HELTNO Admitting Unavailable MISC, DR HELTON Attending Unavailable RYAN, DR JOSE Watts Primary Care Unavailable MISC, DR HELTON Consulting Unavailable Itzel Wilkinson Unavailable AMBER LOUIS Primary Care Physician Kanika Licea Unavailable Brendon Muniz Attending Unavailable Brendon Muniz Admitting Unavailable NADIRA Cates Attending Provider Haley Cates Unavailable Haley Cates Attending Unavailable Haley Cates Admitting Unavailable AMBER LOUIS Attending Unavailable AMBER LOUIS Attending Unavailable AMBER LOUIS Attending Unavailable BRENDON MUNIZ Attending Unavailable AMBER LOUIS Attending Unavailable BRENDON MUNIZ Attending Unavailable BRENDON MUNIZ Attending Unavailable Aichgisella TICKET SALES SUPERVISOR, Amber Unavailable Jose Bowens MD Primary Care Provider [phone] Missy TICKET SALES SUPERVISOR, Amber Unavailable Missy WADDELL-BLAINE, Amber Awad Primary Care Unava ilable Laurie GARDINER, Milka Murray Attending James Louis APRN-BLAINE, Amber Awad Primary Care Unava ilable Laurie GARDINER, Milka Murray Attending [facility], [facility] Unava ilable Laurie GARDINER, Milka Murray Attending [facility], [facility] Unava ilable Laurie BAILEYC, Milka Terri Attending [facility], [facility] Care Unava ilable Laurie PA-C, Milka Murray Attending [facility], [facility] Unava ilable Pamelah PA-C, Milka Terri Attending [facility], [facility] Unava ilable Pamelah PA-C, Milka Terri Attending [facility], [facility] Unava ilable Laurie GILBERT-C, Milka Terri Attending [facility] Allergies Allergy Classification Reported Allergen(s) Allergy Type Date of Onset Reaction(s) Facility (1 source) Acetaminophen / HYDROcodone; Translations: [Vicodin] Drug Allergy [facility] Repository (1 source) Acetaminophen / oxyCODONE; Translations: [Percocet 5/325] Drug Allergy [facility] Repository Medications Current Medications Medication Drug Class(es) Dates Sig (Normalized) Sig (Original) amoxicillin 875 mg oral tablet (1 source) Penicillin-class Antibacterial Start: 04-17-2024 End: 04-27-2024 take 1 tablet by mouth in the morning amoxicillin (Amoxil) 875 MG tablet Indications: Acute non-recurrent sinusitis of other sinus Take 1 tablet (875 mg) by mouth in the morning and 1 tablet (875 mg) before bedtime. Do all this for 10 days. 20 tablet 04/17/2024 04/27/2024 Active B Complex Vitamins (vitamin B complex) tablet (1 source) take 1 tablet by mouth once daily B Complex Vitamins (vitamin B complex) tablet Take 1 tablet by mouth Daily Active cephalexin 500 mg oral capsule (4 sources) Cephalosporin Antibacterial Start: 07-17-2023 take 1 capsule by mouth every eight hours Cephalexin 500 MG 1 capsule Orally every 8 hrs for 7 Jul, Active Start: 01-22-2023 take 1 capsule by [facility] every eight hours Cephalexin 500 MG 1 capsule Orally TID for 7 days Jan, Not-Taking/PRN fluconazole 150 mg oral tablet (2 sources) Azole Antifungal Start: 04-17-2024 fluconazole ( Diflucan) 150 MG tablet Indications: Antibiotic-induced yeast infection One time dose and may repeat in 3 days if needed 2 tablet 04/17/2024 Active Start: 07-17-2023 Fluconazole 15 0 MG 1 tablet Orally once, repeat dose [...] Active Problems Problem Classification Problem Date Documented Date Episodic/Chronic Mycoses (2 sources) Opportunistic mycosis; Translations: [Candidiasis, unspecified] Onset: 08-08-2023 04-17-2024 Episodic Other upper respiratory infections (6 sources) Sore throat symptom; Translations: [Acute pharyngitis, [...] 2021 Episodic Other aftercare (4 sources) 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; Translations: [OTH DETENTION CURRENT DRUG THERAPY] Onset: 10-19-2020 Episodic Other inflammatory condition of skin (1 source) Erythema nodosum; Translations: [Erythema nodosum] Onset: 07-31-2023 07-31-2023 Episodic Other lower respiratory disease (1 source) History of bacterial infection; Translations: [Personal history of other diseases of the respiratory system] Onset: 08-08-2023 08-08-2023 Episodic Other nutritional; endocrine; and metabolic disorders (1 source) Overweight in adulthood with body mass index of 25 or more but less than 30; Translations: [Body mass index (BMI) 26.0-26.9, adult] Onset: 07-31-2023 07-31-2023 Episodic Unclassified (1 source) CONTACT W/AND (SUSP) EXPOS COVID-19; Translations: [CONTACT W/AND (SUSP) EXPOS COVID-19] Onset: 10-04-2020 Results Test Name Value Interpretation Reference Range Facility Gynecology Office/Clinic Not lalit 08-07-2024 Gynecology Office/Clinic Note Chief Complaint Med f/u. History of Present Illness Sexually Active: Yes Date You Last Had Sex: Yesterday Partners in Last 30 Days: 1 Partners in Last 12 Months: 1 Partners in Your Lifetime: 5 Kinds of Sex: Vaginal Forced to Have Sex: No Partner Had More Than 1 Partner: Yes Partner IV Drug Use: No Consistently Use Condoms: No 08/06/24 09:45:00 49 y/o . Med f/u. Compounded semaglutide and HRT. Off her progesterone since last visit. She continues to use Vivelle-Dot 0.05 mg twice weekly in addition to her semaglutide 2.26 mg weekly compounded. Despite continued efforts with her diet and exercise, patient continues to gain weight. Patient is very frustrated as she was motivated over the last 2 months to lose weight, but has gained 8 pounds. Patient had lost a total of 22 pounds with semaglutide. She is now up 14 pounds of the 22 she lost. Patient complains of dry skin and hair loss. Lab work: Not done in over 1 year outside of female hormone levels. Last office Note 04/29/24 15:47:00 49 y/o . HRT f/u. Patient started on HRT approximately 8 weeks ago. Currently using Vivelle-Dot 0.05 mg twice weekly in addition to Prometrium 100 mg 2 p.o. at bedtime. Patient tells me her hot flashes and night sweats are resolved. She is sleeping much better through the night. She has less joint pain and overall feels better. Patient does admit to some grogginess during the day since increasing her dose of Prometrium. She felt better on 1 tab nightly. Patient is also concerned as she has been on 7 pounds since her last appointment. Patient continues on compounded semaglutide. Her weight is down from 165 pounds to 149#. She did weigh 143 pounds at her last visit. 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 Additional Details Contraception Contraception TypeNone Review of Systems Head Migraines: No Headaches: No Ears, Nose, Throat Congestion: No Vertigo: No Sore throat: No Nasal drainage: No Cardio Respiratory Peripheral edema: No Heart Irregularity: No Chest Pain: No Shortness of Breath: No Gastrointestinal Bloating: No Reflux/heartburn: No Abdominal Pain: No Change in bowel habits: No Urinary Urinary Incontinence: No Urinary frequency: No Nocturia: No Urgency: No Painful urination: No Musculoskeletal Back Pain: No Muscle Aches: No Joint Pain: No Additional Details Pain Present Physical Exam Vitals & Measurements BP: 122/72 HT: 162 cm WT: 71.4 kg WT: 71.4 kg (Dosing) BMI: 27.21 Additional Vitals BP Position/Location: Sitting, Right arm 157# up from 149# Constitutional: Alert and oriented x 3. Neurologic: CN II-XII grossly intact. Psychiatric: Pleasant and cooperative. NAD. Assessment/Plan 1. Medication management Continue Vivelle-Dot 0.05 mg and her semaglutide. Repeat lab work to assure no thyroid problem and to check if estrogen is in therapeutic range. Patient also notified that compounded semaglutide will likely not be an option after September. She plans to check her commercial insurance plan for coverage of that medication. Ordered: Complete Blood Count w/ Differential Comprehensive Metabolic Panel Estradiol Level Free T4 Hemoglobin A1c TSH with Reflex Free T4 2. Weight gain 3. Hair loss Medical Decision Making Chronic conditions NOT treated [...] gynecological examination (general) (routine) without abnormal findings External hemorrhoid Hx of vertigo Internal hemorrhoids Labial hypertrophy Labial pain Medication management Motion sickness Perianal skin tags Historical Colon polyp Procedure/Surgical History Arthroscopy of knee (2005) vaginal hysterectomy (2005) History of knee surgery (2009) COLONOSCOPY & POLYPECTOMY (2009) Repair Labia (04/04/2019) Colonoscopy (02/15/2021) Medications Hair, Skin & Nails, 5 mg, Oral, Daily Natural Fiber Therapy 3.4 g/7 g oral powder for reconstitution, 3.4 g, Oral, Daily Prometrium 100 mg oral capsule, 200 mg= 2 caps, Oral, HS (at bedtime), 6 refills Semaglutide 1.8mg/ 0.5ml, 0.5 ml (1.8mg), Subcutaneous, Weekly, dispense 4, 0.5 ml pre-filled syringes Semaglutide 2.268mg/0.63 ml, 0.63ml (2.268mg), Subcutaneous, Weekly, 11 refills, dispense 4, 0.63 ml pre-filled syringes Semaglutide 2.268mg/0.63 ml, 0.63ml (2.268mg), Subcutaneous, Weekly, (more content not included)... Normal [facility] Gynecology Office/Clinic Not lalit 04-30-2024 Gynecology Office/Clinic Note Chief Complaint 49 y/o . HRT f/u. History of Present Illness Pelvic Pain: No Painful Sex: No Abnormal Vaginal Discharge: No Abnormal Vaginal Bleeding: No Vaginal Dryness: No Vaginal Itch: No Vaginal Burning: No Vaginal Odor: No Hot Flashes: No Night Sweats: No Contraception Type: None Sexually Active: Yes Date You Last Had Sex: Yesterday Partners in Last 30 Days: 1 Partners in Last 12 Months: 1 Partners in Your Lifetime: 5 Kinds of Sex: Vaginal Forced to Have Sex: No Partner Had More Than 1 Partner: Yes Partner IV Drug Use: No Consistently Use Condoms: No 04/29/24 15:47:00 49 y/o . HRT f/u. Patient started on HRT approximately 8 weeks ago. Currently using Vivelle-Dot 0.05 mg twice weekly in addition to Prometrium 100 mg 2 p.o. at bedtime. Patient tells me her hot flashes and night sweats are resolved. She is sleeping much better through the night. She has less joint pain and overall feels better. Patient does admit to some grogginess during the day since increasing her dose of Prometrium. She felt better on 1 tab nightly. Patient is also concerned as she has been on 7 pounds since her last appointment. Patient continues on compounded semaglutide. Her weight is down from 165 pounds to 149#. She did weigh 143 pounds at her last visit. Review of Systems Head Migraines: No Headaches: No Ears, Nose, Throat Congestion: No Vertigo: No [...] Present Physical Exam Vitals & Measurements BP: 105/72 HT: 162 cm WT: 67.8 kg WT: 67.8 kg (Dosing) BMI: 25.83 149# Constitutional: Alert and oriented x 3. Neurologic: CN II-XII grossly intact. Psychiatric: Pleasant and cooperative. NAD. Additional Vitals No qualifying data available. Assessment/Plan 1. Medication management Continue current regimen. Follow-up for annual well woman examination or sooner if problems arise. 2. Menopause syndrome Medical Decision Making Chronic conditions NOT treated [...] gynecological examination (general) (routine) without abnormal findings External hemorrhoid Hx of vertigo Internal hemorrhoids Labial hypertrophy Labial pain Medication management Motion sickness Perianal skin tags Historical Colon polyp Procedure/Surgical History Arthroscopy of knee (2005) vaginal hysterectomy (2005) History of knee surgery (2009) COLONOSCOPY & POLYPECTOMY (2009) Repair Labia (04/04/2019) Colonoscopy (02/15/2021) Medications Hair, Skin & Nails, 5 mg, Oral, Daily Natural Fiber Therapy 3.4 g/7 g oral powder for reconstitution, 3.4 g, Oral, Daily Prometrium 100 mg oral capsule, 200 mg= 2 caps, Oral, HS (at bedtime), 6 refills Semaglutide 1.8mg/ 0.5ml, 0.5 ml (1.8mg), Subcutaneous, Weekly, dispense 4, 0.5 ml pre-filled syringes Semaglutide 2.268mg/0.63 ml, 0.63ml (2.268mg), Subcutaneous, Weekly, 11 refills, dispense 4, 0.63 ml pre-filled syringes Semaglutide 2.268mg/0.63 ml, 0.63ml (2.268mg), Subcutaneous, Weekly, 11 refills, dispense 4, 0.63 ml pre-filled syringes Vitamin B Complex oral capsule, Oral, Daily Vivelle-Dot 0.05 mg/24 hours twice weekly transdermal film, extended release, 1 patches, Topical, 2x/Wk, 6 refills Allergies Percocet 5/325 (Nausea & vomiting) Vicodin (Nausea & vomiting) Social History Alcohol Current, Beer, Wine, Liquor, 1-2 times per week Exercise Exercise frequency: Daily. Self assessment: Good condition. Exercise type: Walking. Nutrition/Health Regular, Caffeine intake amount: 2 cups of coffee daily. Sexual Sexually active: Yes. Substance Abuse Denies All Tobacco Never (less than 100 in lifetime) Use:. Family History Atrial fibrillation: Mother. Breast cancer: Cousin (Comments: maternal cousin dx in late 40s with breast cancer), Grandmother (P) and Sibling (Dx at 46). Cancer of colon: Father. Electronically signed by We (more content not included)... Normal [facility] MG Mammogram Digital Screen Bilat + Tomoon 02-28-2024 MG Mammogram Digital Screen Bilat + Bran #[id number] - MG MAMMOGRAM DIGITAL SCREEN BILAT + BRAN BILATERAL DIGITAL SCREENING MAMMOGRAM 3D/2D WITH CAD: 02/27/2024 CLINICAL: Screening. Comparison is made to exams dated: 02/21/2023 mammogram, 02/15/2022 mammogram, 02/16/2021 mammogram, 02/09/2021 mammogram, 02/04/2020 mammogram, and 03/06/2019 mammogram - [facility]. The breasts are extremely dense, which lowers the sensitivity of mammography. Current study was also evaluated with a Computer Aided Detection (CAD) system. No significant masses, calcifications, or other findings are seen in either breast. IMPRESSION: NEGATIVE There is no mammographic evidence of malignancy. A 1 year screening mammogram is recommended. (02/27/2025) This patient's calculated lifetime risk for development of breast cancer is 36.3%. Based upon the [employer] [employer] guidelines 20% and higher: she [...] may not be detected on mammograms. The [employer] supports annual screening mammography starting at age 40. Megan palma/terrence:02/28/2024 13:48:11 copy to: Amber Louis TICKET SALES SUPERVISOR, ph: [phone], fax: [phone] Tower Loader Operator(s): RT Nahomi(R)(M), [facility] letter sent: New Mammo Normal B1/2 Mammogram BI-RADS: 1 Negative Final Dictated by: Megan Kuo DO Signed by: Megan Kuo DO Signed (Electronic Signature): 02/28/2024 1:48 pm (If Report Is Signed, Electronically Signed in Other Vendor System) Normal [facility] Estradiolon 02-27-2024 Estradiol Lvl <19.0 Normal [facility] Comment on above: Result Comment: Age Range (years) Reference Range (pg/mL) 0 to < 1 < 15.0 - 38.2 Male 1 to < 12 (pre-puberty) < 15.0 12 to < 19 (puberty) < 15.0 - 34.8 19+ < 15.0 - 31.5 Age Range (years) Reference Range (pg/mL) 0 to < 1 < 15.0 - 38.2 Female 1 to < 12 (pre-puberty) < 15.0 - 16.0 12 to < 19 (puberty) < 15.0 - 196.0 19+ See Non- Females below Days from hLH Peak (day 0) Reference Range (pg/mL) -14 to -10 (Early Follicular) 22.4 - 115.0 Non- -9 to -4 (Mid Follicular) 25.0 - 115.0 Females 0 (Ovulatory Peak) 32.1 - 517.0 +4 to +11 (Mid Luteal) 36.5 - 246.0 Post- Menopausal Not on hormane therapy < 15.0 - 25.1 Females The Access Sensitive Estradiol assay results are not intended to be used to measure the effectiveness of exogeneous Estradiol supplementation, for example, when the patient is on hormone replacement therapy. The presence of estradiol drug analogues and their metabolites could have an impact on estradiol recovery when using this assay. Performed By: #### E STRA #### [place] [address] FSHon 02-27-2024 FSH 100.75 mIU/mL Normal [facility] Comment on above: Result Comment: Fo llicle Stimulating Hormone Interpretation Normall Menstruating Females: Mid-Follicular Phase: 3.85-8.78 mIU/mL Mid-Cycle Peak: 4.54-22.51 mIU/mL Mid-Luteal Phase: 1.79-5.12 mIU/mL Postmenopausal Females: 16.74-113.59 mIU/mL Performed By: #### F SH #### [place] [address] Gynecology Office/Clinic Not lalit 02-27-2024 Gynecology Office/Clinic Note Chief Complaint Annual History of Present Illness Pelvic Pain: No Painful Sex: No Abnormal Vaginal Discharge: No Abnormal Vaginal Bleeding: No Vaginal Dryness: No Vaginal Itch: No Vaginal Burning: No Vaginal Odor: No Hot Flashes: Yes Night Sweats: Yes Breast Lump: No Breast Pain: No Contraception Type: None Menstrual Periods: No Reason for No Menstrual Periods: Hysterectomy Age of Menopause: 31 Sexually Active: Yes Date You Last Had Sex: Yesterday Partners in Last 30 Days: 1 Partners in Last 12 Months: 1 Partners in Your Lifetime: 5 Kinds of Sex: Vaginal Forced to Have Sex: No Partner Had More Than 1 Partner: Yes Partner IV Drug Use: No Consistently Use Condoms: No 02/27/24 13:54:00 48 y/o, , , Annual Exam Last Pap: 01/29/19 Neg w/ neg HPV, Hx vaginal hysterectomy 2005 Mammogram: 02/21/23 Neg w/ DBT and a lifetime risk of 37.4%. Just had done today. Colonoscopy: 2021 Normal, q 10 years per pt Menopausal symptoms: over past 4 mo having significant HF and NS. only sleeping 4 hours per night due to insomnia. Denies mood changes. Some vaginal dryness. some ankle pain but wearing heals with her new job. No focus problems. Pain lab work and consider initiation of HRT based on results. Discussed menopause symptoms. Discussed options for treatment. Discussed alternatives to hormone therapy including acupuncture, exercise, yoga, SSRI, and avoiding triggers such as stress, alcohol, sugar, or coffee. Patient is already doing these things and is down significant amount of weight with dietary and exercise changes. Discussed menopausal hormone therapy. The goal of therapy is to relieve symptoms. Discussed risk and information sheet given. Patient will become a grandmother this year from one of her sons. Patient's other son was also but they recently miscarried. Review of Systems Head Migraines: No Headaches: No Eyes Corrective Lenses: Contact lenses Blurred vision: Glasses Ears, Nose, Throat Congestion: No Vertigo: No Sore throat: No Nasal drainage: No Cardio Respiratory Peripheral edema: No Heart Irregularity: No Chest Pain: No Shortness of Breath: No Gastrointestinal Bloating: No Reflux/heartburn: No Abdominal Pain: No Change in bowel habits: No Urinary Urinary Incontinence: No Urinary frequency: No Nocturia: No Urgency: No Painful urination: No Musculoskeletal Back Pain: No Muscle Aches: No Joint Pain: No Integumentary Lesions: No Moles: No Acne: No Hair changes: No PsychoSocial Sleep Problems: Yes Sleep Problems comment: sometimes Anxiety: No Suicidal Ideation: No Homicidal Ideation: No Depression: No Hematologic/Lymphatic Lymphadenopathy: No Thromboembolism: No Bruising: No Bleeding tendencies: No Endocrine Abnormal weight gain: No Abnormal weight loss: No Fatigue: No Additional Details Pain Present Physical Exam Vitals & Measurements BP: 108/78 143#down from 150 pounds since last appointment. Down 25 pounds since initiation of semaglutide through [employer]. General: Alert and oriented x 3. Well [...] vaginal mucosa. No lesions or abnormal discharge. No cystocele or rectocele. Vaginal cuff intact and well supported. Bimanual exam: No adnexal tenderness or masses. No gaurding or prolapse. Additional Vitals BP Position/Location: Sitting, Left arm Assessment/Plan Encounter for annual routine gynecological examination Physician Comments 1. Recommend monthly self breast [...] exercise 30 min 5 days weekly. Ordered: 94702 AMB Preventative EST patient; 40-64 years Estradiol Level (more content not included)... Normal [facility] Progesteroneon 02-27-2024 Progesterone Lvl 0.10 ng/mL Normal [facility] Comment on above: Result Comment: Norm al Ranges are as follows: Non- Females: Mid-Follicular Phase: 0.31-1.52 ng/mL Mid-Luteal Phase: 5.16-18.56 ng/mL Females: First Trimester: 4.73-50.74 ng/mL Second Trimester: 19.41-45.30 ng/mL Post-Menopausal (Not on Hormone Therapy): 0.08-0.78 ng/mL Males: 0.14-2.06 ng/mL Performed By: #### P NATO #### [facility] [address] [place] [address] Gynecology Office/Clinic Not lalit 09-06-2023 Gynecology Office/Clinic Note Chief Complaint 4 month med f/u History of Present Illness Contraception Type: None Sexually Active: Yes Date You Last Had Sex: Yesterday Partners in Last 30 Days: 1 Partners in Last 12 Months: 1 Partners in Your Lifetime: 5 Kinds of Sex: Vaginal Forced to Have Sex: No Partner Had More Than 1 Partner: Yes Partner IV Drug Use: No Consistently Use Condoms: No 09/05/23 09:12:00 48 y/o, , 4 month med f/u-Compounded semaglutide Patient has been using compounded semaglutide through [facility]. She is currently on the second the highest dose using it weekly. Patient has lost 15 pounds in 4 months. She is feeling much better with more energy and improved diet. Patient has gone from 165 down to 150 pounds. She denies side effects such as constipation or diarrhea. She has had mild nausea but nothing concerning. She denies abdominal pain. 05/31/23 Office Note 1 month Wegovy f/u. Patient was started on compounded Wegovy through [employer]. She denies any side effects such as [...] diet. He is focusing on portion control. [1] Assessment/Plan 1. Medication management Wegovy (Semaglutide): 1. [...] continue on the medication long-term. 2. Obesity [2] Review of Systems Gastrointestinal Bloating: No Reflux/heartburn: No Abdominal Pain: No Change in bowel habits: No Urinary Urinary Incontinence: No Urinary frequency: No Nocturia: No Urgency: No Painful urination: No PsychoSocial Sleep Problems: No Anxiety: No Suicidal Ideation: No Homicidal Ideation: No Depression: No Additional Details Pain Present Physical Exam Vitals & Measurements BP: 118/70 HT: 162 cm WT: 68.4 kg WT: 68.4 kg (Dosing) BMI: 26.06 150# down from 165# Constitutional: Alert and oriented x 3. Neck: Supple, non-tender. Normal thyroid. No lymphadenopathy. Lungs: Clear to auscultation and percussion. Non-labored respiration. Heart: Normal rate and regular rhythm. No murmur. No edema. Abdominal: BS active. Soft and non-distended. No tenderness. Negative rebound. Neurologic: CN II-XII grossly intact. Psychiatric: Pleasa (more content not included)... Normal [facility] Quick Strepon 07-13-2023 S. pyogenes Org specific cx Ql (Throat) Negative [employer] Other Quick Strep [employer] [facility] [employer] Other Throat Cultureon 07-13-2023 Throat culture ORGANISM: Strep dysgalactiae (O:STRDYS) Comments Organism Not Routinely Tested for Susceptibilities Quantity of Growth Heavy Growth PERFORMED BY: [place] [address] PATHOLOGIST COGNOS ANALYST JACQUELYN HAWK M.D. [facility] Comment on above: Performed By: #### C [place] #### [address] Physician Orderon 05-02-2023 Physician Order [id number] [facility] CBC AUTO DIFFon 09-29-2021 BASO # 0.0 103/ul Normal 0.0-0.1 [facility] Comment on above: Performed By: #### C BC #### [facility] [address] [address] [address] Kathie Ryan Basophils/100 WBC (Bld) 0.3 % Normal 0.2-2.0 [facility] Comment on above: Performed By: #### C BC #### [facility] [address] [place] [address] Dr. Kathie Ryan EO # 0.0 103/ul Normal 0.0-0.[address] [facility] Comment on above: Performed By: #### C BC #### [facility] [address] [place] [address] Dr. Kathie Ryan Eosinophils/100 WBC (Bld) 0.4 % Critically low 0.9-7.[address] [facility] Comment on above: Performed By: #### C BC #### [facility] [address] [place] [address] Dr. Kathie Ryan Erythrocyte distribution width (RBC) [Ratio] 12.2 % Normal 11.0-15.0 [facility] [facility] Comment on above: Performed By: #### C BC #### [facility] [address] [place] [address] Dr. Kathie Ryan Hematocrit (Bld) [Volume fraction] 39.1 % Normal 36.0-48.0 [facility] Comment on above: Performed By: #### C BC #### [facility] [address] [place] [address] Dr. Kathie Ryan Hemoglobin (Bld) [Mass/Vol] 12.8 g/dL Normal 12.0-16.0 [facility] Comment on above: Performed By: #### C BC #### [facility] [address] [place] [address] Dr. Kathie Ryan IG # 0.01 10e3/ul Normal 0.00-0.[address] [facility] Comment on above: Performed By: #### C BC #### [facility] [address] [place] [address] Dr. Kathie Ryna IG % 0.1 % Normal 0.0-0.[address] [facility] Comment on above: Performed By: #### C BC #### [facility] [address] [place] [address] Dr. Kathie Ryan LYMPH # 1.7 103/ul Normal 1.2-3.[address] [facility] Comment on above: Performed By: #### C BC #### [facility] [address] [place] [address] Dr. Kathie Ryan Lymphocytes/100 WBC (Bld) 22.0 % Normal 20.5-60.[address] [facility] Comment on above: Performed By: #### C BC #### [facility] [address] [place] [address] Dr. Kathie Ryan MANUAL DIFF REQ NO Normal [facility] Comment on above: Performed By: #### C BC #### [facility] [address] [place] [address] Dr. Kathie Ryan MCH (RBC) [Entitic mass] 32.5 pg Normal 26.7-34.[address] [facility] Comment on above: Performed By: #### C BC #### [facility] [address] [place] [address] Dr. Kathie Ryan MCHC (RBC) [Mass/Vol] 32.7 g/dL Normal 29.9-35.[address] [facility] Comment on above: Performed By: #### C BC #### [facility] [address] [place] [address] Dr. Kathie Ryan MCV (RBC) [Entitic vol] 99.2 fL Critically high 81.0-99.[address] [facility] Comment on above: Performed By: #### C BC #### [facility] [address] [place] [address] Dr. Kathie Ryan MONO # 0.5 103/ul Normal 0.3-0.[address] [facility] Comment on above: Performed By: #### C BC #### [facility] [address] [place] [address] Dr. Kathie Ryan Monocytes/100 WBC (Bld) 6.0 % Normal 1.7-12.[address] [facility] Comment on above: Performed By: #### C BC #### [facility] [address] [place] [address] Dr. Kathie Ryan NEUT # 5.5 103/ul Normal 1.4-6.[address] [facility] Comment on above: Performed By: #### C BC #### [facility] [address] [place] [address] Dr. Kathie Ryan Neutrophils/100 WBC (Bld) 71.2 % Normal 43.0-75.0 [facility] Comment on above: Performed By: #### C BC #### [facility] [address] [place] [address] Dr. Kathie Ryan Platelet mean volume (Bld) [Entitic vol] 10.7 fL Normal 9.5-13.5 [facility] Comment on above: Performed By: #### C BC #### [facility] [address] [place] [address] Dr. Kathie Ryan PLT 373 103/ul Normal 150-450 [facility] Comment on above: Performed By: #### C BC #### [facility] [address] [place] [address] Dr. Kathie Ryan RBC 3.94 106/ul Critically low 4.20-5.40 [facility] Comment on above: Performed By: #### C BC #### [facility] [address] [place] [address] Dr. Kathie Ryan WBC 7.7 103/ul Normal 4.0-11.[address] [facility] Comment on above: Performed By: #### C BC #### [facility] [address] [place] [address] Dr. Kathie Ryan FREE T4on 09-29-2021 Free T4 [Mass/Vol] 0.85 ng/dL Normal 0.78-2.19 [facility] Comment on above: Performed By: #### F T4 #### [facility] [address] [place] [address] Dr. Kathie Ryan LIPID PROFILEon 09-29-2021 CHOL-HDL RATIO NORM SEE BELOW Normal [facility] Comment on above: Result Comment: 3.3 - 4.4 LOW RISK 4.4 - 7.1 AVERAGE RISK 7.1 - 11.0 MODERATE RISK >11.0 HIGH RISK Performed By: #### T SH, LIPID, CMP #### [facility] [address] [place] [address] Dr. Kathie Ryan Cholesterol [Mass/Vol] 243 mg/dL Critically high <=200 [facility] Comment on above: Performed By: #### T SH, LIPID, CMP #### [facility] [address] [address] [address] Kathie Ryan Cholesterol in HDL [Mass/Vol] 88 mg/dL Critically high 40-60 [facility] Comment on above: Performed By: #### T SH, LIPID, CMP #### [facility] [address] [address] [address] Kathie Ryan Cholesterol in LDL [Mass/Vol] 136.0 mg/dL Normal [facility] Comment on above: Performed By: #### T SH, LIPID, CMP #### [facility] [address] [address] [address] Kathie Ryan Cholesterol.total/C holesterol in HDL [Mass ratio] 2.8 {ratio} Normal [facility] Comment on above: Performed By: #### T SH, LIPID, CMP #### [facility] [address] [address] [address] Kathie Ryan HDL NORMAL > or = 60 mg/dl - LO W CARDIOVASCULAR RISK <40 mg/dl - HIGH CARDIOVASCULAR RISK Normal [facility] Comment on above: Performed By: #### T SH, LIPID, CMP #### [facility] [address] [address] [address] Kathie Ryan LDL CALC NORMAL SEE BELOW Normal [facility] Comment on above: Result Comment: <100 mg/dl OPTIMAL 100 - 129 mg/dl NEAR OR ABOVE OPTIMAL 130 - 159 mg/dl BORDERLINE HIGH 160 - 189 mg/dl HIGH >190 mg/dl VERY HIGH Performed By: #### T SH, LIPID, CMP #### [facility] [address] [address] [address] Kathie Ryan Triglyceride [Mass/Vol] 95 mg/dL Normal <=[address] [facility] Comment on above: Performed By: #### T SH, LIPID, CMP #### [facility] [address] [address] [address] Kathie Ryan VLDL CALC 19.0 mg/dL Normal [facility] Comment on above: Performed By: #### T SH, LIPID, CMP #### [facility] [address] [place] [address] Dr. Kathie Ryan PROF 14(COMP METB)on 022 Albumin [Mass/Vol] 3.9 g/dL Normal 3.4-5.0 [facility] Comment on above: Performed By: #### T CRISTINA, CMP #### [facility] [address] [place], [place] [id number] Luis A Bhavani Albumin/Globulin [Mass ratio] 1.1 {ratio} Normal [facility] Comment on above: Performed By: #### T CRISTINA, CMP #### [facility] [address] [place] [address] Luis A Bhavani ALP [Catalytic activity/Vol] 44 U/L Critically low 46-116 [facility] Comment on above: Performed By: #### T CRISTINA, CMP #### [facility] [address] [place] [address] Luis A Bhavani ALT [Catalytic activity/Vol] 38 U/L Normal 14-59 [facility] Comment on above: Performed By: #### T CRISTINA, CMP #### [facility] [address] [place] [address] Luis A Bhavani Anion gap [Moles/Vol] 11.0 mmol/L Normal [facility] Comment on above: Performed By: #### T CRISTINA, CMP #### [facility] [address] [place] [address] Luis A Bhavani AST [Catalytic activity/Vol] 17 U/L Normal 15-[address] [facility] Comment on above: Performed By: #### T CRISTINA, CMP #### [facility] [address] [place] [address] Luis A Bhavani Bilirubin [Mass/Vol] 0.4 mg/dL Normal 0.2-1.[address] [facility] Comment on above: Performed By: #### T CRISTINA, CMP #### [facility] [address] [place] [address] Luis A Bhavani Calcium [Mass/Vol] 9.2 mg/dL Normal 8.5-10.[address] [facility] Comment on above: Performed By: #### T CRISTINA, CMP #### [facility] [address] [id number] Luis A Bhavani Chloride [Moles/Vol] 102 mmol/L Normal 98-[address] [facility] Comment on above: Performed By: #### T SH, CMP #### [facility] [address] [id number] Luis A Bhavani CO2 [Moles/Vol] 28.1 mmol/L Normal 22.0-30.0 [facility] Comment on above: Performed By: #### T CRISTINA, CMP #### [facility] [address] [id number] Luis A Bhavani Creatinine [Mass/Vol] 0.61 mg/dL Normal 0.52-1.[address] [facility] Comment on above: Performed By: #### T CRISTINA, CMP #### [facility] [address] [place], [place] [address] Luis A Bhavani EGFR-AF KOSOVAN >60 Normal >=60 [facility] Comment on above: Performed By: #### T CRISTINA, CMP #### [facility] [address] [place] [address] Luis A Bhavani EGFR-NON AF KOSOVAN >60 Normal >=[address] [facility] Comment on above: Performed By: #### T CRISTINA, CMP #### [facility] [address] [place], [place] [address] Luis A Bhavani Globulin (S) [Mass/Vol] 3.7 g/dL Normal [facility] Comment on above: Performed By: #### T CRISTINA, CMP #### [facility] [address] [place], [place] [address] Luis A Bhavani Glucose [Mass/Vol] 95 mg/dL Normal 74-[address] [facility] Comment on above: Performed By: #### T CRISTINA, CMP #### [facility] [address] [place] [address] Luis A Bhavani Potassium [Moles/Vol] 4.1 mmol/L Normal 3.4-5.[address] [facility] Comment on above: Performed By: #### T CRISTINA, CMP #### [facility] [address] [place], [place] [address] Luis A Bhavani Protein [Mass/Vol] 7.6 g/dL Normal 6.1-8.[address] [facility] Comment on above: Performed By: #### T SH, CMP #### [facility] [address] [place] [address] Luis A Bhavani Sodium [Moles/Vol] 137 mmol/L Normal 137-[address] [facility] Comment on above: Performed By: #### T SH, CMP #### [facility] [address] [place] [address] Luis A Bhavani Urea nitrogen [Mass/Vol] 12.0 mg/dL Normal 7.0-18.0 [facility] Comment on above: Performed By: #### T SH, CMP #### [facility] [address] [place] [address] Luis A Bhavain Urea nitrogen/Creatinine [Mass ratio] 19.7 mg/mg Normal [facility] Comment on above: Performed By: #### T SH, CMP #### [facility] [address] [place] [address] Luis A Bhavani TSHon 09-29-2021 TSH 1.840 uIU/mL Normal 0.470-4.680 [facility] Comment on above: Performed By: #### T CRISTINA, LIPID, CMP #### [facility] [address] [place] [address] Dr. Kathie Ryan TSH RANGE SEE BELOW Normal [facility] Comment on above: Result Comment: <0.3 4 UIU/ml HYPERTHYROID 0.34-5.60 UIU/ml EUTHYROID >5.60 UIU/ml HYPOTHYROID Performed By: #### T CRISTINA, LIPID, CMP #### [facility] [address] [place] [address] Dr. Kathie Ryan CBC AUTO DIFFon 10-19-2020 BASO # 0.0 103/ul Normal 0.0-0.1 [facility] Comment on above: Performed By: #### C BC #### [facility] [address] [place] [address] Luis A Bhavani Basophils/100 WBC (Bld) 0.7 % Normal 0.2-2.0 [facility] Comment on above: Performed By: #### C BC #### [facility] [address] [place], [place] [address] Luis A Bhavani EO # 0.1 103/ul Normal 0.0-0.7 [facility] Comment on above: Performed By: #### C BC #### [facility] [address] [place], [place] [address] Luis A Bhavani Eosinophils/100 WBC (Bld) 1.2 % Normal 0.9-7.0 [facility] Comment on above: Performed By: #### C BC #### [facility] [address] [place] [address] Luis A Bhavani Erythrocyte distribution width (RBC) [Ratio] 12.5 % Normal 11.0-15.0 [facility] Comment on above: Performed By: #### C BC #### [facility] [address] [place] [address] Luis A Bhavani Hematocrit (Bld) [Volume fraction] 36.9 % Normal 36.0-48.0 [facility] Comment on above: Performed By: #### C BC #### [facility] [address] [place] [address] Luis A Bhavani Hemoglobin (Bld) [Mass/Vol] 12.3 g/dL Normal 12.0-16.0 [facility] Comment on above: Performed By: #### C BC #### [facility] [address] [place] [address] Luis A Bhavani IG # 0.01 10e3/ul Normal 0.00-0.03 [facility] Comment on above: Performed By: #### C BC #### [facility] [address] [place] [address] Luis A Bhavani IG % 0.2 % Normal 0.0-0.[address] [facility] Comment on above: Performed By: #### C BC #### [facility] [address] [place] [address] Luis A Bhavani LYMPH # 2.0 103/ul Normal 1.2-3.[address] [facility] Comment on above: Performed By: #### C BC #### [facility] [address] [place] [address] Luis A Bhavani Lymphocytes/100 WBC (Bld) 35.4 % Normal 20.5-60.0 [facility] Comment on above: Performed By: #### C BC #### [facility] [address] [place], [place] [address] Luis A Bhavani MANUAL DIFF REQ NO Normal [facility] Comment on above: Performed By: #### C BC #### [facility] [address] [place], [place] [address] Luis A Bhavani MCH (RBC) [Entitic mass] 32.6 pg Normal 26.7-34.[address] [facility] Comment on above: Performed By: #### C BC #### [facility] [address] [place], [place] [address] Luis A Bhavani MCHC (RBC) [Mass/Vol] 33.3 g/dL Normal 29.9-35.[address] [facility] Comment on above: Performed By: #### C BC #### [facility] [address] [place], [place] [address] Luis A Bhavani MCV (RBC) [Entitic vol] 97.9 fL Normal 81.0-99.0 [facility] Comment on above: Performed By: #### C BC #### [facility] [address] [place], [place] [address] Luis A Bhavani MONO # 0.4 103/ul Normal 0.3-0.[address] [facility] Comment on above: Performed By: #### C BC #### [facility] [address] [place], [place] [address] Luis A Bhavani Monocytes/100 WBC (Bld) 6.2 % Normal 1.7-12.[address] [facility] Comment on above: Performed By: #### C BC #### [facility] [address] [place], [place] [address] Luis A Bhavani NEUT # 3.2 103/ul Normal 1.4-6.[address] [facility] Comment on above: Performed By: #### C BC #### [facility] [address] [place], [place] [address] Luis A Beckham Neutrophils/100 WBC (Bld) 56.3 % Normal 43.0-75.0 [facility] Comment on above: Performed By: #### C BC #### [facility] [address] [place], [place] [address] Luis A Beckham Platelet mean volume (Bld) [Entitic vol] 10.3 fL Normal 9.5-13.[address] [facility] Comment on above: Performed By: #### C BC #### [facility] [address] [place], [place] [address] Luis Aheri Beckham PLT 295 103/ul Normal 150-[address] [facility] Comment on above: Performed By: #### C BC #### [facility] [address] [place], [place] [address] Luis Aheri Beckham RBC 3.77 106/ul Critically low 4.20-5.40 [facility] Comment on above: Performed By: #### C BC #### [facility] [address] [place], [place] [address] Luis Aheri Beckham WBC 5.7 103/ul Normal 4.0-11.[address] [facility] Comment on above: Performed By: #### C BC #### [facility] [address] [place], [place] [address] Luis A Bhavani PROF 14(COMP METB)on 021 Albumin [Mass/Vol] 3.8 g/dL Normal 3.5-5.0 [facility] Comment on above: Performed By: #### T CRISTINA, CMP #### [facility] [address] [place], [place] [address] Luis A Beckham Albumin/Globulin [Mass ratio] 1.0 {ratio} Normal [facility] Comment on above: Performed By: #### T CRISTINA, CMP #### [facility] [address] [place], [place] [address] Luis Aheri Beckham ALP [Catalytic activity/Vol] 31 U/L Critically low 38-[address] [facility] Comment on above: Performed By: #### T CRISTINA, CMP #### [facility] [address] [place], [place] [address] Luis A Bhavani ALT [Catalytic activity/Vol] 26 U/L Normal 9-52 [facility] Comment on above: Performed By: #### T CRISTINA, CMP #### [facility] [address] [place] [address] Luis A Bhavani Anion gap [Moles/Vol] 14.7 mmol/L Normal [facility] Comment on above: Performed By: #### T CRISTINA, CMP #### [facility] [address] [place] [address] Luis A Bhavani AST [Catalytic activity/Vol] 14 U/L Normal 14-[address] [facility] Comment on above: Performed By: #### T CRISTINA, CMP #### [facility] [address] [place] [address] Luis A Bhavani Bilirubin [Mass/Vol] 0.6 mg/dL Normal 0.2-1.[address] [facility] Comment on above: Performed By: #### T CRISTINA, CMP #### [facility] [address] [place] [address] Luis A Bhavani Calcium [Mass/Vol] 9.0 mg/dL Normal 8.4-10.2 [facility] Comment on above: Performed By: #### T CRISTINA, CMP #### [facility] [address] [place] [address] Luis A Bhavani Chloride [Moles/Vol] 105 mmol/L Normal 98-[address] [facility] Comment on above: Performed By: #### T CRISTINA, CMP #### [facility] [address] [place] [address] Luis A Bhavani CO2 [Moles/Vol] 24.5 mmol/L Normal 22.0-30.0 [facility] Comment on above: Performed By: #### T CRISTINA, CMP #### [facility] [address] [place], [place] [address] Luis A Bhavani Creatinine [Mass/Vol] 0.81 mg/dL Normal 0.52-1.04 [facility] Comment on above: Performed By: #### T CRISTINA, CMP #### [facility] [address] [place] [address] Luis A Bhavani EGFR-AF KOSOVAN >60 Normal >=60 [facility] Comment on above: Performed By: #### T SH, CMP #### [facility] [address] [place], [place] [address] Luis A Bhavani EGFR-NON AF KOSOVAN >60 Normal >=60 [facility] Comment on above: Performed By: #### T SH, CMP #### [facility] [address] [place], [place] [address] Luis A Bhavani Globulin (S) [Mass/Vol] 3.7 g/dL Normal [facility] Comment on above: Performed By: #### T SH, CMP #### [facility] [address] [id number] Ulis A Bhavani Glucose [Mass/Vol] 94 mg/dL Normal 74-[address] [facility] Comment on above: Performed By: #### T SH, CMP #### [facility] [address] [place], [place] [address] Luis A Bhavani Potassium [Moles/Vol] 4.2 mmol/L Normal 3.4-5.0 [facility] Comment on above: Performed By: #### T SH, CMP #### [facility] [address] [place], [place] [address] Luis A Bhavani Protein [Mass/Vol] 7.5 g/dL Normal 6.1-8.2 [facility] Comment on above: Performed By: #### T SH, CMP #### [facility] [address] [place], [place] [address] Luis A Bhavani Sodium [Moles/Vol] 140 mmol/L Normal 137-[address] [facility] Comment on above: Performed By: #### T SH, CMP #### [facility] [address] [id number] Luis A Bhavani Urea nitrogen [Mass/Vol] 16.0 mg/dL Normal 7.0-17.0 [facility] Comment on above: Performed By: #### T SH, CMP #### [facility] [address] [id number] Luis A Bhavani Urea nitrogen/Creatinine [Mass ratio] 19.8 mg/mg Normal [facility] Comment on above: Performed By: #### T SH, CMP #### [facility] [address] [place] [address] Luis A Beckham TSHon 10-19-2020 TSH 3.533 uIU/mL Normal 0.470-4.680 [facility] Comment on above: Performed By: #### T SH, CMP #### [facility] [address] [place] [address] Luis A Beckham TSH RANGE SEE BELOW Normal [facility] Comment on above: Result Comment: <0.3 4 UIU/ml HYPERTHYROID 0.34-5.60 UIU/ml EUTHYROID >5.60 UIU/ml HYPOTHYROID Performed By: #### T CRISTINA, CMP #### [facility] [address] [place] [address] Luis A Beckham VITAMIN B12on 10-19-2020 Cobalamin (Vitamin B12) [Mass/Vol] 418.0 pg/mL Normal 239.0-931.0 [facility] Comment on above: Performed By: #### V ITB12, VITAD #### [facility] [address] [place] [address] Luis A Beckham VITAMIN D 25 OHon 10-19-2020 VIT D 25-OH 35.0 ng/mL Normal [facility] Comment on above: Performed By: #### V ITB12, VITAD #### [facility] [address] [place] [address] Luis A Beckham VIT D RANGES SEE BELOW Normal [facility] Comment on above: Result Comment: <20 ng/mL Vit D deficient 20 - <30 ng/mL Vit D insufficient 30 - 100 ng/mL Vit D sufficient >100 ng/mL Potential Toxicity Performed By: #### V ITB12, VITAD #### [facility] [address] [place] [address] Luis A Beckham Covid-19 PCR (CVDTBH)on 09-10 Sample Type Test performed using RT-PCR from a nasopharyngeal collected specimen. Normal [facility] Comment on above: Performed By: #### C VDTBH #### [facility] [address] [place], [place] [address] Luis A Beckham SARS-CoV-2 (COVID-19) RNA LION+probe Ql (Unsp spec) Not detected Normal NOT DETECTED [facility] Comment on above: Result Comment: This test is not yet approved or cleared by the [place] FDA. When there are no FDA-approved or cleared tests available, and other criteria are met, FDA can make tests available under an emergency access mechanism called an Emergency Use Authorization (EUA). The EUA for this test is supported by the [place] of Health and Human Service's (HHS's) declaration [...] consistent with SARS-CoV-2. Performed By: #### C [facility] #### [facility] [address] [place] [id number] Luis A Beckham Vital Signs Date Time Vital Sign Value Performing Clinician Facility 07-13-2023 17:00-0500 Body height 162.56 cm Haley Cates Other [facility] Other 07-13-2023 17:00-0500 Body mass index (BMI) [Ratio] 27.46 kg/m2 Haley Cates Other [facility] Other 07-13-2023 17:00-0500 Body temperature 97.8 [degF] Haley Cates Other [facility] Other 07-13-2023 17:00-0500 Body weight 72.58 kg Haley Cates Other [facility] Other 07-13-2023 17:00-0500 Diastolic blood pressure 89 mm[Hg] Haley Cates Other [facility] Other 07-13-2023 17:00-0500 Respiratory rate 18 /min Haley Cates Other [facility] Other 07-13-2023 17:00-0500 SaO2% (BldA) [Mass fraction] 98 % Haley Cates Other [facility] Other 07-13-2023 17:00-0500 Systolic blood pressure 138 mm[Hg] Haley Cates Other [facility] Other 01-22-2023 17:25-0400 Body height 162.56 cm Kanika Licea Other [facility] Other 01-22-2023 17:25-0400 Body mass index (BMI) [Ratio] 27.29 kg/m2 Kanika Licea Other [facility] Other 01-22-2023 17:25-0400 Body temperature 97.3 [degF] Kanika Licea Other [facility] Other 01-22-2023 17:25-0400 Body weight 72.12 kg Kanika Licea Other [facility] Other 01-22-2023 17:25-0400 Diastolic blood pressure 85 mm[Hg] Kanika Licea Other [facility] Other 01-22-2023 17:25-0400 Respiratory rate 18 /min Kanika Licea Other [facility] Other 01-22-2023 17:25-0400 SaO2% (BldA) [Mass fraction] 98 % Kanika Anuja Other [facility] [employer] Other 01-22-2023 17:25-0400 Systolic blood pressure 152 mm[Hg] Kanika Wayneley Other [facility] [employer] Other 04-20-2022 15:48-0500 Diastolic blood pressure 102 mm[Hg] Mio Yogesh [facility] 04-20-2022 15:48-0500 Mean blood pressure 122 mm[Hg] Mio Yogesh [facility] 04-20-2022 15:48-0500 Systolic blood pressure 161 mm[Hg] Mio Yogesh [facility] 04-20-2022 15:34-0500 Blood Pressure Location Mio Yogesh [facility] 04-20-2022 15:34-0500 Diastolic blood pressure 62 mm[Hg] [facility] 04-20-2022 15:34-0500 Heart rate 87 /min Mio Yogesh [facility] 04-20-2022 15:34-0500 SaO2% (BldA) [Mass fraction] 100 % [facility] 04-20-2022 15:34-0500 Systolic blood pressure 175 mm[Hg] 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 Phone: [facility] FM Comment on above: Acute non-recurrent sinusitis of other sinus (Primary Dx); Antibiotic-induced yeast infection Start: 02-27-2024 End: 02-27-2024 ambulatory Amber Delmi Aichholz [employer] OPER[employer] COORDINATOR Facility:[facility] Start: 02-27-2024 End: 02-27-2024 ambulatory Amber Delmi Aichholz [employer] OPER[employer] COORDINATOR Facility:[facility] Start: 09-25-2023 End: 09-25-2023 ambulatory AMBER AICHHOLZ Not Available Start: 09-06-2023 End: 09-06-2023 ambulatory Amber Delmi Aichholz [employer] OPERATIONS COORDINATOR Facility:[facility] Start: 08-23-2023 End: 08-23-2023 ambulatory AMBER AICHHOLZ Not Available Start: 08-08-2023 End: 08-08-2023 ambulatory AMBER AICHHOLZ Not Available Start: 07-31-2023 End: 07-31-2023 ambulatory AMBER AICHHOLZ Not Available Start: 07-17-2023 End: 07-17-2023 ambulatory Haley Cates Other [facility] Other Start: 07-17-2023 Telephone encounter Haley Cates [facility] [address] Start: 07-13-2023 End: 07-13-2023 ambulatory Haley Cates Facility:[facility] Start: 07-13-2023 End: 07-13-2023 Departed Referred NADIRA Cates Work Phone: [facility] [place] Work Phone: Start: 07-13-2023 End: 07-13-2023 ambulatory NADIRA Cates Work Phone: [facility] Work Phone: Start: 07-13-2023 Office outpatient vi sit 25 minutes Haley Cates [facility] Start: 05-17-2023 End: 05-17-2023 ambulatory BRENDON MUNIZ Not Available Start: 05-10-2023 End: 05-10-2023 ambulatory BRENDON MUNIZ Not Available Start: 05-02-2023 End: 05-03-2023 ambulatory Brendon Muniz Facility:[facility] Start: 05-02-2023 End: 05-02-2023 Lab Drop off Brendon Muniz [facility] Start: 05-02-2023 End: 05-02-2023 ambulatory BRENDON MUNIZ Not Available Start: 01-22-2023 End: 01-22-2023 ambulatory Kanika Licea Other [facility] Other Start: 01-22-2023 Office outpatient vi sit 15 minutes Kanika Licea [facility] Start: 04-20-2022 End: 04-20-2022 Patient encounter procedure [facility] Shankar Zuñiga [facility] Start: 03-29-2022 End: 03-29-2022 Patient encounter procedure [facility] Start: 09-30-2021 Encounter for genera l adult medical examination without abnormal findings BLAINE AMBER MISSY [facility] Start: 09-29-2021 End: 09-30-2021 ambulatory BLAINE GRIFFITH DIANEGISELLA Facility:[facility] Start: 09-29-2021 End: 09-30-2021 Encounter for general adult medical examination without abnormal findings [employer] OPERATIONS COORDINATOR AMBER DIANEGISELLA Facility:[facility] Start: 2021 Office outpatient vi sit 5 minutes Itzel Wilkinson [facility] Start: 10-19-2020 End: 10-20-[address] DOCTOR GAMA Facility:[facility] Start: 10-04-2020 End: 10-04-2020 ambulatory MUKESH BOYD Facility:[facility] Procedures Date Procedure Procedure Detail Performing Clinician Start: 02-29-2024 Mammography Amberreinier Johnston trevor [employer] SUPERVISOR Work Phone: Start: 08-08-2023 H/O: hysterectomy History of t otal vaginal hysterectomy (TVH) Amber Louis [employer] SAL[employer] SUPERVISOR Work Phone: Plan of Treatment Date Care Activity Detail Author Start: 02-15-2026 Screening for malign ant neoplasm of colon [facility] Start: 02-28-2025 Screening for malign ant neoplasm of breast Mammogram [facility] Start: 07-13-2023 Throat culture Throat Culture [facility] Start: 1975 Screening for malign ant neoplasm of colon [facility] Bacteria identified in Throat by Aerobe culture [facility] Payers Date Payer Category Payer Self-pay [id number] 2022 Private Health Insurance [employer] [id number] 2022 Unknown [id number] 2..[id number] 2022 Unknown 1974 Unknown [id number] 2..840.1.372669.3.579.2. 593 1974 Unknown [id number] 2..840.1.638637.3.579.2. 593 1974 Unknown [id number] 2.16.840.1.390374.3.579.2. 593 1974 Unknown [id number] 2.16.840.1.061581.3.579.2. 727 1974 Unknown [id number] 2.16.840.1.841562.3.579.2. 1258 1974 Unknown [id number] 2.16.840.1.805715.3.579.2. 1258 1974 Unknown [id number] 2.16.840.1.235798.3.579.2. 1258 1974 Unknown [id number] 2.16.840.1.069364.3.579.2. 1258 1974 Unknown [id number] 2.16.840.1.089984.3.579.2. 1258 1974 Unknown [id number] 2.16.840.1.993576.3.579.2. 1258 1974 Unknown [id number] 2.16.840.1.575438.3.579.2. 1258 1974 Unknown [id number] 2.16.840.1.874860.3.579.2. 1974 Unknown [id number] 2.16.840.1.807767.3.579.2. 1974 Unknown [id number] 2.16.840.1.253187.3.579.2. 1974 Unknown [id number] 2.16.840.1.293532.3.579.2. 1974 Unknown [id number] 2.16.840.1.565159.3.579.2. 1974 Unknown [id number] 2.16.840.1.016642.3.579.2. 1974 Unknown [id number] 2.16.840.1.308672.3.579.2. 1974 Unknown [id number] 2.16.840.1.256883.3.579.2. 1959 Unknown [id number] Unknown [id number] 2.16.840.1.155935.3.579.2. 531 Social History Date Type Detail Facility Unknown if ever smoked [facility] Other Start: 07-31-2023 End: 09-25-2023 Sex Assigned At [facility] Tobacco smoking status No Smokin g Status Entered [facility] Start: 04-20-2022 End: 04-05-2023 Tobacco smoking status Never smoked tobacco (finding) [facility] Tobacco smoking status Never [facility] Start: 1975 Sex Assigned At Female F [facility] Start: 04-05-2023 Tobacco use and exposure Smokeless tobacco non-user [facility] Start: 09-25-2023 Alcoholic beverage intake Current drinker of alcohol (finding) [facility] Start: 07-31-2023 End: 09-25-2023 History of Social function [facility] Do you belong to any clubs or organizations such as uatsdin groups, unions, fraternal or athletic groups, or school groups? Yes [facility] Are you now , , , , never or living with a partner? [facility] How often to you hav e a drink containing alcohol? 2-3 time sa week [facility] How many standard drinks containing alcohol do you have on a typical day? 1 or 2 [facility] How often do you hav e 6 or more drinks on 1 occasion? Less than monthly [facility] Do you feel stress - tense, restless, nervous, or anxious, or unable to sleep at night because your mind is troubled all the time - these days [OSQ] Not at all [facility] (I/We) worried wheth er (my/our) food would run out before (I/we) got money to buy more. Never true [facility] In the past 12 month s, was there a time when you were not able to pay the mortgage or rent on time? No [facility] Start: 09-25-2023 Alcohol Comment SOCIALLY [facility] Start: 1975 Sex assigned at Not on file [facility] NEGATED: Highlighted rowStart: NINF History of tobacco use Passive smoker [facility] Functional Status Date Assessment Result Facility 04-20-2022 Functional Status No [facility] Clinical Notes 2021 to 08-06-2024 Note Date & Type Note Facility 08-06-2024 Note Patient Education Josh reno Name: Dona Wood Current Date: 08/06/2024 09:47:06 [place] : 1975 The following sheet(s) are the Patient Education Leaflets for Dona Wood Nutrition 5 Steps for Eating Healthier Changing the way [...] butter and lard, and use less margarine. Replace these with healthier fats, such as olive, canola, or avocado oils. ?Pass on foods that have palm, coconut, or partially hydrogenated oils. ?Eat fewer high-fat dairy foods like cheese, ice cream, and whole milk. ?Get a heart-healthy cookbook and try some new recipes. Step 2.?Go light on salt ?Keep the saltshaker off the table. ?Limit high-salt ingredients, such as soy sauce, bouillon, and garlic salt. ?Instead of adding salt when cooking, season your food with herbs, spices, and other flavorings. Try lemon, garlic, onion, vinegar, or salt-free herb seasonings. ?Limit convenience foods, such as boxed or canned foods and restaurant food. ?Read food labels and choose lower-sodium options. Buy fresh, frozen, or canned vegetables that don't have added salt. Step 3. Limit sugar ?Pause before you add sugars to pancakes, cereal, coffee, or tea. This includes white and brown table sugar, syrup, honey, and molasses. Cut your usual amount by half. ?Swap out sugar-filled soda and other drinks. Buy sugar-free or low-calorie beverages. Remember, water is always the best choice. Try adding lemon juice to water for extra flavor. ?Read labels and choose foods with less [...] your fiber increase to help prevent constipation. Step 5. Pay attention to serving sizes ?Remember that a serving size is a standard measurement. It will let you track the amount of fat, calories, and other nutrients in the food you eat. ?Read the Nutrition Facts label on packaged foods to learn their serving sizes. ?Use serving sizes to assess how much food you put on your plate. Pay attention to your portions. How many servings are you eating? ?Keep in mind that your needs may change if you?re more active or less active, or if you have other factors that change your calorie needs. ?Use your hand to help you measure serving sizes. For example: o1 teaspoon: This is about the size of the first joint of your thumb. o1 tablespoon: This is about the size of the first 2 joints of your thumb. o1 ounce: This is about what you can fit in your cupped hand. o2 to 3 ounces: This is about the size of the palm of your hand. o? cup: This is also about what you can fit in your cupped hand. o1 cup: This is about the size of your fist. ? 3118-8966 The [employer]. All rights reserved. This information is not intended as a substitute for professional medical care. Always follow your healthcare professional's instructions. [facility] 08-04-2024 Note Patient Education Ma terials Name: Nina Dona Cookn Current Date: 08/04/2024 15:13:59 [place] : 1975 The following sheet(s) are the Patient Education Leaflets for Dona Wood Ambulatory Hormone Changes During Menopause Menopause is not a sudden change. During the months or years before menopause (perimenopause),?your ovaries start to run out of eggs. Your body makes less estrogen and progesterone. This may bring on symptoms, such as hot flashes. You?ve reached menopause when you have not had a period for 1 year. From that point on, you are in menopause. Perimenopause In the years leading up to menopause,?your ovaries make less estrogen. You release fewer eggs and your periods become less regular. Symptoms you may have: ?Heavier or yarder operator periods ?Longer or shorter time between periods ?Hot flashes ?Mood swings or depression ?Night sweats ?Insomnia ?Vaginal dryness. This may make sex uncomfortable or painful. ?Urinary changes, such as incontinence or urinating more often ?Migraine headaches ?Joint pain Postmenopause After menopause, you make very little estrogen. As a result, the uterine lining doesn't thicken, and your periods have ended. Symptoms you may have ?No periods ?Vaginal dryness, which may make intercourse uncomfortable or painful ?Hot flashes ?Mood swings or depression ?Night sweats ?Insomnia ?Urinary changes, such as incontinence and urinating more often ?Joint pain ?Memory loss or trouble concentrating Surgical menopause Menopause occurs if you have your uterus removed. But symptoms of menopause happen only if the ovaries are also removed. This causes a quick drop in the amount of estrogen and progesterone. This drop causes sudden and severe symptoms. ? 2997-9557 The [employer]. All rights reserved. This information is not intended as a substitute for professional medical care. Always follow your healthcare professional's instructions. Nutrition 5 Steps for Eating Healthier Changing the way [...] butter and lard, and use less margarine. Replace these with healthier fats, such as olive, canola, or avocado oils. ?Pass on foods that have palm, coconut, or partially hydrogenated oils. ?Eat fewer high-fat dairy foods like cheese, ice cream, and whole milk. ?Get a heart-healthy cookbook and try some new recipes. Step 2.?Go light on salt ?Keep the saltshaker off the table. ?Limit high-salt ingredients, such as soy sauce, bouillon, and garlic salt. ?Instead of adding salt when cooking, season your food with herbs, spices, and other flavorings. Try lemon, garlic, onion, vinegar, or salt-free herb seasonings. ?Limit convenience foods, such as boxed or canned foods and restaurant food. ?Read food labels and choose lower-sodium options. Buy fresh, frozen, or canned vegetables that don't have added salt. Step 3. Limit sugar ?Pause before you add sugars to pancakes, cereal, coffee, or tea. This includes white and brown table sugar, syrup, honey, and molasses. Cut your usual amount by half. ?Swap out sugar-filled soda and other drinks. Buy sugar-free or low-calorie beverages. Remember, water is always the best choice. Try adding lemon juice to water for extra flavor. ?Read labels and choose foods with less [...] your fiber increase to help prevent constipation. Step 5. Pay attention to serving sizes ?Remember that a serving size is a standard measurement. It will let you track the amount of fat, calories, and other nutrients in the food you eat. ?Read the Nutrition Facts label on packaged foods to learn their serving sizes. ?Use serving sizes to assess how much food you put on your plate. Pay attention to your portions. How many servings are you eating? ?Keep in mind that your needs may change if you?re more active or less active, or if you have other factors that change your calorie needs. ?Use your hand to help you measure serving sizes. For example: o1 teaspoon: This is about the size of the first joint of your thumb. o1 tablespoon: This is about the size of the first 2 joints of your thumb. o1 ounce: This is about (more content not included)... [facility] 09-05-2023 Note Patient Education Ma terials Name: Doan Wood Current Date: 09/05/2023 09:15:56 [place] : 1975 The following sheet(s) are the [...] fiber increase to help prevent constipation. ? 6147-8376 The [employer]. [address] [place] [address]. All rights reserved. This information is not intended as a substitute for professional medical care. Always follow your healthcare professional's instructions. [facility] 07-13-2023 Evaluation note Encounter Date Diagnosis Assessment [...] treatment plan. Patient left in stable condition. [facility] Other 08-14-2023 Evaluation note* Encounter Date Diagnosis Assessment Notes [...] fever. Patient verbalized understanding of treatment plan. [facility] Other 09-22-2021 Evaluation note* Encounter Date Diagnosis [...] Patient care instructions given in writting by [facility] Care At Home document. [facility] Other Evaluation + Plan note Future Appointments Appointment Date:04/13/2022 03:45:00 PM Scheduled Provider:Yogesh KNUTSON, Mio Chaparro Location[facility] Appointment Type:[facility] available [facility] Work Phone: Evaluation noteNo InformationNort [employer] Other Evaluation note* Diagnosis Erythema nodosum- Primary BMI 26.0-26.9,adult Erythema nodosum- Primary BMI 26.0-26.9,adult History of streptococcal sore throat Antibiotic-induced yeast infection Erythema nodosum- Primary History of streptococcal sore throat BMI 26.0-26.9,adult Erythema nodosum- Primary Acute non-recurrent sinusitis of other sinus- Primary Antibiotic-induced yeast infection documented in [facility] - [facility]* Type Description Date Surgical History hysterectomy [facility] Other History general Narrative - Reported* Type Description Date Medical History Diya-Schlatter's disease of ri ght knee Surgical History hysterectomy Surgical History knee arthroscopy [facility] [employer] Other Hiscmft general Narrative - Reported* Type Description Date Medical History Diya-Schlatter's disease of ri ght knee Surgical History hysterectomy Surgical History knee arthroscopy Surgical History foot cyst removal [facility] [employer] Other Hospital course Narrative No data available for this section [facility] No data available for this section [facility] No data available for this section [facility] Summary Purpose Family History No Family [...] and content) DATE CREATED AUTHOR 10/01/2021 [facility] DATE CREATED AUTHOR AUTHOR'S ORGANIZ ATION 05/05/2023 [facility] DATE CREATED AUTHOR AUTHOR'S ORGANIZ ATION 07/22/2023 [facility] DATE CREATED AUTHOR AUTHOR'S ORGANIZ ATION 09/26/2023 [facility] EPIC DATE CREATED AUTHOR AUTHOR'S ORGANIZ ATION 08/08/2024 [facility] REASON FOR VISIT (unrecogniz ed section and content) #27 BLACK SHERRIE, VANCEID EXP OSUREBUG BITE ON NECK , ITCHYSORE THROAT, AT ER YESTERDAYNo Information Patient Care team informatio n (unrecognized section and content) Team Status: Inactive Member Role Status Dates Haley Cates APRN Attending Provider Active Start: July 13, 2023 End: July 13, 2023 [employer] Relationship Specialty Start Date End Date Jose Bowens MD [address] [place] [id number] PCP - General Family Medicine 08/08/23 Amber Louis NP [address] [place] [phone] Nurse Practitioner Family Medicine 06/11/22 Amber Louis NP [address] [place] [id number] Nurse Practitioner Family Medicine 08/08/23 Goals (unrecognized section and content) Goals may [...] BE BASED ON THE PRIMARY CLINICAL RECORDS. [employer] [facility]. provides no warranty or guarantee of the accuracy or completeness of information in this document.
[2024-08-08 07:42] LABS: Basophils Percent Auto 0.9 % (0.2-2.0); Eosinophils Absolute Auto 0.1 10^3/uL (0.0-0.7); Eosinophils Percent Auto 1.4 % (0.9-7.0); Hematocrit 38.5 % (36.0-48.0); Hemoglobin 13.1 g/dL (12.0-16.0); Immature Granulocytes Abs Auto 0.01 10^3/uL (0.00-0.03); Immature Granulocytes Pct Auto 0.2 % (0.0-0.5); Lymphocytes Absolute Auto 1.7 10^3/uL (1.2-3.8); Lymphocytes Percent Auto 40.6 % (20.5-60.0); Mean Corpuscular Hemoglobin 32.7 pg (26.7-34.0); Monocytes Absolute Auto 0.3 10^3/uL (0.3-0.8); Monocytes Percent Auto 6.4 % (1.7-12.0); Neutrophils Absolute Auto 2.1 10^3/uL (1.4-6.5); Neutrophils Percent Auto 50.5 % (43.0-75.0); Platelet Count 290 10^3/uL (150-450); Red Blood Count 4.01 10^6/uL (4.20-5.40); White Blood Count 4.2 10^3/uL (4.0-11.0)
[2024-08-08 08:22] LABS: Estimated Average Glucose 91 mg/dL; Glycohemoglobin A1C 4.8 % (4.5-6.2)
[2024-08-08 08:59] LABS: Alanine Aminotransferase 26 U/L (14-59); Albumin Globulin Ratio 1.2; Alkaline Phosphatase 35 U/L (46-116); Anion Gap 11.1; Aspartate Amino Transferase 15 U/L (15-37); BUN Creatinine Ratio 28.4; Bilirubin Total 0.5 mg/dL (0.2-1.0); Calcium 9.4 mg/dL (8.5-10.1); Carbon Dioxide 27.6 mmol/L (21.0-32.0); Chloride 105 mmol/L (98-107); Estimated GFR (African America >60 (>=60 mL/min/1.73m^2); Estimated GFR (Non-African Ame >60 (>=60 mL/min/1.73m^2); Globulin 3.4 g/dL; Glucose 91 mg/dL (74-106); Potassium 4.7 mmol/L (3.5-5.1); Sodium 139 mmol/L (136-145); Total Protein 7.4 g/dL (6.4-8.2)
[2024-08-08 09:02] LABS: Free T4 0.84 ng/dL (0.76-1.46)
[2024-08-09 11:08] LABS: Estradiol <5.0 pg/mL (.)
== END 2024-08-08 07:13 | disposition home or self-care (01) ==
LOC: LAB 07:14
PROVIDERS: PCP Nurse Practitioner
DX: Z79.899 Other long term (current) drug therapy (principal)
CPT/HCPCS: 36415; 80053; 82670; 83036; 84439; 84443; 85025

== ENCOUNTER 2025-06-10 04:23 | Emergency (ER) | payer OTHER, SELFPAY ==
[2025-06-10 04:30] VITALS: BP 161/88; PULSE 88; TEMP 36.7; O2SAT 100; BMI 29.2
--- NOTE | 2025-06-10 04:52 | ED.NAVMDI1 ---
HPI - Nausea/Vomiting/Diarrhea General Chief complaint: Nausea/Vomiting/Diarrhea Stated complaint: NAUSEA, VOMITING Time Seen by Provider: 06/10/25 04:26 Source: patient Mode of arrival: walk-in History of Present Illness HPI Narrative: This 50-year-old female presents for evaluation of nausea vomiting and diarrhea that started abruptly yesterday afternoon. The patient went to [facility] yesterday with her for lunch and picked up her Ozempic prescription. When she got home she used the Ozempic and shortly thereafter became acutely ill with nausea vomiting and diarrhea. She states she cannot keep anything down. She has vomited more times than she can count. She is unable to even keep small sips of water down. Her is concerned that it is from the Ozempic however she has been off Ozempic for 2 years in the past. She is not having any chest pain or shortness of breath. She does have a red runny nose and nasal congestion. Her was sick with similar symptoms over the hol and they have other family members who have also been sick with influenza related symptoms. Related Data Home Medications ?Medication ?Instructions ?Recorded ?Confirmed estradiol 0.05 mg/24 hr semiweekly 06/10/25 transdermal patch semaglutide 2 mg/dose (8 mg/3 mL) 1 mg subcut QWEEK 06/10/25 06/10/25 subcutaneous pen injector (Ozempic) Allergies Allergy/AdvReac Type Severity Reaction Status Date / Time No Known Drug Allergies Allergy Verified 06/10/25 04:28 Review of Systems ROS Status of ROS 10 or more systems reviewed and unremarkable except as noted in history and below [facility] Social History Little interest or pleasure in doing things: not at all Feeling down, depressed, or hopeless: not at all Exam Narrative Exam Narrative: Vital signs and Nursing Notes reviewed: Patient is afebrile with normal pulse, blood pressure is elevated at 161/88, she is not hypoxic with pulse ox of 100% on room air General: Awake, alert, oriented, toxic but uncomfortable and mildly ill-appearing adult female, no respiratory distress, no active vomiting HEENT: Normocephalic atraumatic, mucous membranes are pink and slightly dry, no scleral icterus Chest: Lungs are clear to auscultation with good air entry, there is no wheezing rhonchi or rales appreciated no accessory muscle use, patient is speaking in complete sentences-no chest wall tenderness to palpation CVS: Regular rate and rhythm S1-S2, no murmurs rubs or gallops, pulses are brisk and equal bilaterally ABD: Soft, nondistended, nontender, no rebound guarding or rigidity, bowel sounds are normal, no pulsatile masses appreciated Extremities: Moving all extremities, no lower extremity tenderness or swelling noted, negative Homans' sign, pulses are brisk and equal bilaterally Skin: Normal in appearance without rash,pallor, petechiae or purpura Neuro: No focal deficits Constitutional Vital Signs, click to edit/add: Last Vital Signs Temp 98.0 F 06/10/25 04:30 Pulse 88 06/10/25 04:30 Resp 18 06/10/25 04:30 BP 161/88 H 06/10/25 04:30 Pulse Ox 100 06/10/25 04:30 O2 Del Method Room Air 06/10/25 04:30 Course Vital Signs Vital signs: Vital Signs Temperature 98.0 F 06/10/25 04:30 Pulse Rate 88 06/10/25 04:30 Respiratory Rate 18 06/10/25 04:30 Blood Pressure 161/88 H 06/10/25 04:30 Pulse Oximetry 100 06/10/25 04:30 Oxygen Delivery Method Room Air 06/10/25 04:30 Temperature 98.0 F 06/10/25 04:30 Pulse Rate 88 06/10/25 04:30 Respiratory Rate 18 06/10/25 04:30 Blood Pressure 161/88 H 06/10/25 04:30 Pulse Oximetry 100 06/10/25 04:30 Oxygen Delivery Method Room Air 06/10/25 04:30 MDM - Nausea/Vomiting/Diarrhea MDM Narrative Medical decision making narrative: This 50-year-old female presents for evaluation of nausea vomiting and diarrhea that started abruptly yesterday afternoon. The patient and her had gone out for lunch and she had picked up her Ozempic prescription. She was feeling fine at that time and after getting home she started to become nauseated and had multiple episodes of vomiting prior to arrival. She states she was unable to even keep down small sips of liquid. She has also had diarrhea. She is denying any abdominal pain. Her was sick with flulike symptoms over the holiday. She developed similar symptoms but the acute onset of nausea vomiting and diarrhea was yesterday. In the emergency department she had an elevated blood pressure was afebrile, she is nontoxic in appearance, her abdomen is soft. Mucous membranes are slightly dry. An IV was placed and she was medicated with IV fluids, Zofran, Pepcid and Toradol. On reevaluation she is feeling better. Routine labs are reviewed. She has a normal white count and stable hemoglobin. Electrolytes are normal, she has a slight elevation in her ALT and AST with normal bilirubin and normal lipase. On reevaluation she request to be discharged home. She will be given additional dose of Zofran prior to discharge and discharged home with a Zofran to use later in the day as needed and a prescription for Zofran will be given to her at the time of discharge. Lab Data Attestation: I reviewed the patient's lab results. Labs: Lab Results 06/10/25 06/10/25 Range/Units 04:45 04:55 WBC 9.2 (4.0-11.0) 10^3/uL RBC 4.02 L (4.20-5.40) 10^6/uL Hgb 13.1 (12.0-16.0) g/dL Hct 38.5 (36.0-48.0) % MCV 95.8 (81.0-99.0) fL MCH 32.6 (26.7-34.0) pg MCHC 34.0 (29.9-35.2) g/dL RDW 12.9 (11.0-15.0) % Plt Count 341 (150-450) 10^3/uL MPV 10.0 (9.5-13.5) fL Neut % (Auto) 80.8 H (43.0-75.0) % Lymph % (Auto) 15.9 L (20.5-60.0) % [place] % (Auto) 2.6 (1.7-12.0) % Eos % (Auto) 0.2 L (0.9-7.0) % Baso % (Auto) 0.3 (0.2-2.0) % Neut # (Auto) 7.4 H (1.4-6.5) 10^3/uL Lymph # (Auto) 1.5 (1.2-3.8) 10^3/uL [place] # (Auto) 0.2 L (0.3-0.8) 10^3/uL Eos # (Auto) 0.0 (0.0-0.7) 10^3/uL Baso # (Auto) 0.0 (0.0-0.1) 10^3/uL Abs Immat Gran (auto) 0.02 (0.00-0.03) 10^3/uL Imm/Tot Granulo (auto) 0.2 (0.0-0.5) % Sodium 138 (136-145) mmol/L Potassium 4.0 (3.5-5.1) mmol/L Chloride 103 (98-107) mmol/L Carbon Dioxide 29.2 (21.0-32.0) mmol/L Anion Gap 9.8 BUN 11.0 (7.0-18.0) mg/dL Creatinine 0.68 (0.55-1.02) mg/dL Est GFR ( Amer) >60 (>=60 mL/min/1.73m^2) Est GFR (Non-Af Amer) >60 (>=60 mL/min/1.73m^2) BUN/Creatinine Ratio 16.2 Glucose 108 H (74-106) mg/dL Calcium 9.4 (8.5-10.1) mg/dL Total Bilirubin 0.5 (0.2-1.0) mg/dL AST 61 H (15-37) U/L ALT 116 H (14-59) U/L Alkaline Phosphatase 53 (46-116) U/L Total Protein 7.9 (6.4-8.2) g/dL Albumin 4.0 (3.4-5.0) g/dL Globulin 3.9 g/dL Albumin/Globulin Ratio 1.0 Lipase 46.0 (16.0-77.0) U/L Influenza Type A Ag Negative Influenza Type B Ag Negative Discharge Plan Discharge Chief Complaint: Nausea/Vomiting/Diarrhea Clinical Impression: Gastroenteritis Patient Disposition: Home, Self-Care Time of Disposition Decision: 05:59 Condition: Good Prescriptions / Home Meds: No Action estradiol 0.05 mg/24 hr patch semiweekly Ozempic 2 mg/dose (8 mg/3 mL) pen injector 1 mg subcut QWEEK Print Language: Wolof Instructions: Gastroenteritis (ED) Referrals: Amber Louis [employer] [Primary Care Provider, Family Practice] - 1 week
[2025-06-10 04:55] LABS: Hematocrit 38.5 % (36.0-48.0); Hemoglobin 13.1 g/dL (12.0-16.0); Immature Granulocytes Abs Auto 0.02 10^3/uL (0.00-0.03); Immature Granulocytes Pct Auto 0.2 % (0.0-0.5); Lymphocytes Absolute Auto 1.5 10^3/uL (1.2-3.8); Mean Corpuscular HGB Conc 34.0 g/dL (29.9-35.2); Mean Corpuscular Hemoglobin 32.6 pg (26.7-34.0); Mean Corpuscular Volume 95.8 fL (81.0-99.0); Platelet Count 341 10^3/uL (150-450); Red Blood Count 4.02 10^6/uL (4.20-5.40); White Blood Count 9.2 10^3/uL (4.0-11.0)
[2025-06-10 05:10] LABS: Alanine Aminotransferase 116 U/L (14-59); Albumin Globulin Ratio 1.0; Albumin Level 4.0 g/dL (3.4-5.0); Alkaline Phosphatase 53 U/L (46-116); Anion Gap 9.8; Aspartate Amino Transferase 61 U/L (15-37); Blood Urea Nitrogen 11.0 mg/dL (7.0-18.0); Calcium 9.4 mg/dL (8.5-10.1); Carbon Dioxide 29.2 mmol/L (21.0-32.0); Chloride 103 mmol/L (98-107); Estimated GFR (African America >60 (>=60 mL/min/1.73m^2); Estimated GFR (Non-African Ame >60 (>=60 mL/min/1.73m^2); Globulin 3.9 g/dL; Glucose 108 mg/dL (74-106); Lipase 46.0 U/L (16.0-77.0); Potassium 4.0 mmol/L (3.5-5.1); Sodium 138 mmol/L (136-145); Total Protein 7.9 g/dL (6.4-8.2)
[2025-06-10] MEDS: FAMOTIDINE/PF 20 MG/2 ML VIAL IV (05:10)
[2025-06-10] MEDS: KETOROLAC TROMETHAMINE 30 MG/ML VIAL IVP (05:10)
[2025-06-10] MEDS: 0.9 % SODIUM CHLORIDE 1,000 ML 1000 ML IV (05:11)
--- OUTSIDE RECORDS SUMMARY | 2025-06-10 06:02 | XMS_ITS | CCD ---
Author Organization [facility] Care Team Providers Care Aegis Console Operator Track Name Role Phone MISSY CERTIFIED OPHTHALMIC ASSISTANT AMBER Admitting Unavailable AICHHOLZ, CERTIFIED OPHTHALMIC ASSISTANT AMBER Attending Unavailable AICHHOLZ, BLAINE AMBER Primary Care Unavailable AICHGISELLA, CERTIFIED OPHTHALMIC ASSISTANT AMBER Consulting Unavailable MUKESH BOYD Admitting Unavailable [...] Attending Unavailable BRENDON MUNIZ Attending Unavailable Aichgisella PATIENT SCHEDULER, Amber Unavailable Jose Bowens MD Primary Care Provider Missy PATIENT SCHEDULER, Amber Unavailable Missy WADDELL-BLAINE, Amber Awad Primary Care Unava ilable Laurie GARDINER, Milka Murray Attending James Louis APRN-BLAINE, Amber Awad Primary Care Unava ilable Laurie GARDINER, Milka Murray Attending [facility], [facility] Unava ilable Laurie GARDINER, Milka Murray Attending [facility], Amber Delmi [facility] Unava ilable Laurie GARDINER, Milka Murray Attending [facility] Laurie GARDINER, Milka Murray Attending [facility], Amber Delmi [facility] Unava ilable [facility], [facility] Unava ilable Laurie GARDINER, Milka Murray Attending [facility], Amber Delmi [facility] Unava idable Laurie GARDINER, Milka Murray Attending [facility] Allergies Allergy ClassificationReported Allergen(s)Allergy TypeDate of OnsetReaction(s) Facility (1 source)Acetaminophen / HYDROcodone; Translations: [Vicodin]Drug Allergy [facility] Repository (1 source)Acetaminophen / oxyCODONE; Translations: [Percocet 5/325]Drug Allergy [facility] Repository Medications Current Medications MedicationDrug Class(es)DatesSig (Normalized)Sig (Original)amoxicillin 875 mg oral tablet (1 source)Penicillin-class AntibacterialStart: 04-17-2024 End: 51-30-6444wcie 1 tablet by mouth in the morningamoxicillin (Amoxil) 875 MG tablet Indications: Acute non-recurrent sinusitis of other sinus Take 1tablet (875 mg) by mouth in the morning and 1 tablet (875 mg) before bedtime. Do all this for 10 days. 20 tablet 04/17/2024 04/27/2024 ActiveB Complex Vitamins (vitamin B complex) tablet (2 sources)take 1 tablet by mouth once dailyB Complex Vitamins (vitamin B complex) tablet Take 1 tablet by mouth Daily Activecephalexin 500 mg oral capsule (4 sources)Cephalosporin AntibacterialStart: 77-63-7531vsjc 1 capsule by mouth every eight hoursCephalexin 500 MG 1 capsule Orally every 8 hrs for 7 Jul, ActiveStart: 34-55-7641xcsd 1 capsule by mouth every eight hoursCephalexin 500 MG 1 capsule Orally TID for 7 days Jan, Not-Taking/PRNfluconazole 150 mg oral tablet (3 sources)Azole AntifungalStart: 13-70-7157mnjxsikaqrs (Diflucan) 150 MG tablet Indications: Antibiotic-induced yeast infection One time dose and may repeat in 3 days if needed 2 tablet 04/17/2024 ActiveStart: 51-73-1358Samjxtmajrb 150 MG 1 tablet Orally once, repeat dose in 72 hours if needed for 2 Jul, Active oseltamivir 75 mg oral capsule (2 sources)Neuraminidase InhibitorStart: 42-18-8382vmcu 1 capsule by mouth every twelve hoursOseltamivir Phosphate 75 MG 1 capsule Orally Twice a day for 5 day(s) Jul, Xzsogi86 hr phentermine 15 mg / topiramate 92 mg extended release oral capsule (3 sources)Sympathomimetic Amine Anorectictake 1 capsule by mouth every twenty- four hoursQsymia 15-92 MG 1 capsule Orally Once a day ActivepredniSONE 20 mg oral tablet (2 sources)Start: 38-11-2165xdol 1 tablet by mouth every twelve hoursprednisone 20 MG 1 tablet Orally BID for 5 Jul, Active Completed/Discontinued Medications MedicationDrug Class(es)DatesSig (Normalized)Sig (Original)mupirocin 0.02 mg/mg topical ointment (3 sources)RNA Synthetase Inhibitor AntibacterialStart: 09-36-2217Eztbeuitx 2 % 1 application Externally three times a day for 7 days Jan, Not-Taking/PRNondansetron 4 mg disintegrating oral tablet (3 sources)Serotonin-3 Receptor Antagonisttake 1-2 tablets by mouth every eight hours as neededOndansetron 4 MG DISSOLVE 1-2 TABLETS ON THE TONGUE EVERY 8 HOURS NEEDED Oral for 7 Days Not-Taking/PRN Problems Active Problems Problem ClassificationProblemDateDocumented DateEpisodic/ChronicSkin and subcutaneous tissue infections (1 source)Cellulitis of neckEpisodicUnclassified (3 sources)CONTACT W/AND (SUSP) EXPOS COVID-19; Translations: [CONTACT W/AND (SUSP) EXPOS COVID-19]Onset: 90-28-2480Aigyeeoj veins of lower extremity (1 source)Pain co-occurrent and due to varicose veins of bilateral legs; Translations: [Varicose veins of bilateral lower extremities with pain]Onset: 78-17-4650LideuxnmObhch infection (1 source)Viral infection, unspecifiedEpisodic Past or Other Problems Problem ClassificationProblemDateDocumented DateEpisodic/ChronicImmunizations and screening for infectious disease (1 source)Encounter for screening for other viral diseases; Translations: [Encounter for screening for other viral diseases Z11.59]Onset: 2021 Resolved: 42-88-4950NujgpvgdEuvalrz (3 sources)Opportunistic mycosis; Translations: [Candidiasis, unspecified]Onset: 677320-14-7749ZdwndovhVnmrp aftercare (4 sources)Other fdc (current) drug therapy; Translations: [OTH [facility] CURRENT DRUG THERAPY]Onset: 41-72-7928XeglyryoSxrkx inflammatory condition of skin (2 sources)Erythema nodosum; Translations: [Erythema nodosum]Onset: 07-31-2023 21-15-4283DezhgyirEdghz lower respiratory disease (2 sources)History of bacterial infection; Translations: [Personal history of other diseases of the respiratory system]Onset: 289410-93-4465Hxqrizqg Other nutritional; endocrine; and metabolic disorders (2 sources)Overweight in adulthood with body mass index of 25 or more but less than 30; Translations: [Body mass index (BMI) 26.0-26.9, adult]Onset: 07-31-2023 82-21-6912TydzfomcLjhrz upper respiratory infections (7 sources)Sore throat symptom; Translations: [Acute pharyngitis, unspecified] Onset: 80-76-3910PnllexphBpfojhdwuosi (1 source)CONTACT W/AND (SUSP) EXPOS COVID-19; Translations: [CONTACT W/AND (SUSP) EXPOS COVID-19]Onset: 10-04-2020 Results Test NameValueInterpretationReference RangeFacilityMG Mammogram Digital Screen Bilat + Tomoon [id number] Mammogram Digital Screen Bilat + Bran#[id number] - MG MAMMOGRAM DIGITAL SCREEN BILAT + BRAN BILATERAL DIGITAL SCREENING MAMMOGRAM 3D/2D WITH CAD: 03/16/2025 CLINICAL: Screening. Comparison is made to exams dated: 02/27/2024 mammogram, 02/21/2023 mammogram, 02/15/2022 mammogram, 02/09/2021 mammogram, and 02/04/2020 mammogram - [facility]. The breasts are extremely dense, which lowers the sensitivity of mammography. Current study was also evaluated with a Computer Aided Detection (CAD) system. No significant masses, calcifications, or other findings are seen in either breast. IMPRESSION: NEGATIVE There is no mammographic evidence of malignancy. A 1 year screening mammogram is recommended. (03/17/2026) This patient's calculated lifetime risk for development of breast cancer is 36.9%. Based upon the [employer] guidelines 20% and higher: she [...] may not be detected on mammograms. The [employer] supports annual screening mammography starting at age 40. Megan Kuo D.O. cw/penrad:03/17/2025 10:35:37 copy to: Amber Louis PATIENT SCHEDULER, ph: [phone], fax: [phone] Palliative Care Specialist(s): RT Kim(R), [facility] letter sent: New Mammo Normal B1/2 Mammogram BI-RADS: 1 Negative Final Dictated by: Megan Kuo DO Signed by: Megan Kuo DO Signed (Electronic Signature): 03/17/2025 10:35 am (If Report Is Signed, Electronically Signed in Other Vendor System)Normal [facility] CenterGy[facility]cology Office/Clinic Noteon 03-04-2025 Gynecology Office/Clinic NoteChief Complaint Annual History of Present Illness Pelvic Pain: No Painful Sex: No Abnormal Vaginal Discharge: No Abnormal Vaginal Bleeding: No Vaginal Dryness: No Vaginal Itch: No Vaginal Burning: No Vaginal Odor: No Hot Flashes: No Night Sweats: No Breast Lump: No Breast Pain: No Sexually Active: Yes Date You Last Had Sex: Yesterday Partners in Last 30 Days: 1 Partners in Last 12 Months: 1 Partners in Your Lifetime: 5 Kinds of Sex: Vaginal Forced to Have Sex: No Partner Had More Than 1 Partner: Yes Partner IV Drug Use: No Consistently Use Condoms: No 03/04/25 08:45:00 49 y/o . Annual. Last pap: 2019 Neg, HPV Neg. Hx vaginal hysterectomy 2005 Mammogram; 02/27/24 Neg, risk 36.3%. Pt. is scheduled 03/16/2025. Discussed patient's increased risk of breast cancer. Her lifetime risk of breast cancer is >20%.Based on the [employer] guidelines, she may be a candidate for a screening breast MRI.This would be spaced 6 months from her mammogram. Discussed increased risk of false positives with the screening breast MRIs which may result in additional testing. She will consider. She will proceed with mammogram at this time. Colonoscopy: 02/15/2021, Normal, q 5 year BD; None. HRT: doing well on the Vivelle dot 0.05 mg. Refill sent to pharmacy. Semaglutide: Compounded through [employer] or a drug company. Patient's weight has stayed off. Refill sent to pharmacy. Current weight 157 pounds, initial weight 167 pounds. 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 Additional Details Menstrual History Reason for No Menstrual Periodsannual Age of Adyiedmok58 Contraception Contraception TypeNone Review of Systems Head Migraines: No Headaches: Yes Eyes Corrective Lenses: None Blurred vision: None Ears, Nose, Throat Congestion: No Vertigo: No [...] No Hair changes: No PsychoSocial Sleep Problems: No Anxiety: No Suicidal Ideation: No Homicidal Ideation: No Depression: No Hematologic/Lymphatic Lymphadenopathy: No Thromboembolism: No Bruising: No Bleeding tendencies: No Endocrine Abnormal weight gain: Yes Abnormal weight loss: No Fatigue: No Additional Details Pain Present Pain present: No actual or suspected pain Physical Exam Vitals & Measurements BP: 130/82 HT: 162 cm WT: 71.5 kg WT: 71.5 kg (Dosing) BMI: 27.24 Additional Vitals BP Position/Location: Sitting, Right arm 157# General: Alert and oriented x 3. Well [...] tenderness or masses. No gaurding or prolapse. Assessment/Plan 1. Encounter for gynecological examination (general) [...] exercise 30 min 5 days weekly. Ordered: 60195 AMB Preventative EST patient; 40-64 years Orders: estradiol, 1 patches, Topical, 2x/Wk, # 24 patches, 3 Refill(s), Pharmacy: [facility] Misc Medication, Semaglutide 2.268mg/0.63 ml, 0.63ml (2.268mg), Subcutaneous, Weekly, dispense 4, 0.63 ml pre-filled syringes, # 2.52 mL, 11 Refil (more content not included)...[facility] HospitalALL CBC WITH AUTO DIFFon [id number] ABSOLUTE LHXM2IFXDLake Regional Health SystemBasophils/100 WBC (Bld) 0.9 %0.2 - 2.0 %NOMMercy Mccune-Brooks HospitalEosinophils/100 WBC (Bld)1.4 %0.9 - 7.0 %[facility] Science CenterErythrocyte distribution width (RBC) [Ratio]12 %11.0 - 15.0 %[facility] CenterHematocrit (Bld) [Volume fraction]38.5 %36.0 - 48.0 %[facility] Hemoglobin (Bld) [Mass/Vol]13.1 g/dL12.0 - 16.0 g/dLNOLake Regional Health SystemIMMATURE GRANULOCYTES ABS AUTO0.01NOLake Regional Health SystemImmature granulocytes/100 WBC (Bld)0.2 % 0.0 - 0.5 %[facility] CenterInterpretation and review of laboratory results AbnormalNOLake Regional Health SystemLYMPHOCYTES ABSOLUTE AUTO1.7NOMS [facility] Lymphocytes/100 WBC (Bld)40.6 %20.5 - 60.0 %[facility] HospitalH (RBC) [Entitic mass]32.7 pg26.7 - 34.0 pgNOMercy McCune-Brooks HospitalHC (RBC) [Mass/Vol]34 g/dL29.9 - 35.2 g/dLFreeman Neosho HospitalV (RBC) [Entitic vol]96 fL81.0 - 99.0 fLNOLake Regional Health System MONOCYTES ABSOLUTE AUTO0.3NOMS [facility]icothe HospitalMonocytes/100 WBC (Bld)6.4 %1.7 - 12.0 %NOMMercy Mccune-Brooks HospitalNEUTROPHILS ABSOLUTE AUTO2.1NOMS HealthcareNeutrophils/100 WBC (Bld)50.5 %43.0 - 75.0 %NOMS HealthcarePlatelet mean volume (Bld) [Entitic vol] 10 fL9.5 - 13.5 fLNOMS [facility] EO #0.1NOMS HealthcareTB [id number] [facility]ic[facility] HospitalTB RBC4.01LowNOMS [facility] WBC4.2NOMS HealthcareCLINISYNCNOMS HealthcareGynecology Office/Clinic Noteon 11-26-1722Plpitbbsew Office/Clinic NoteChief Complaint Chief Complaint Med f/u. History of Present Illness Sexually Active: Yes Date You Last Had Sex: Yesterday Partners in Last 30 Days: 1 Partners in Last 12 Months: 1 Partners in Your Lifetime: 5 Kinds of Sex: Vaginal Forced to Have Sex: No Partner Had More Than 1 Partner: Yes Partner IV Drug Use: No Consistently Use Condoms: No Comments 08/04/24 15:11:00 49 y/o . Med f/u. Compounded semaglutide and HRT. 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 Assessment/Plan 1. Medication management Medical Decision Making Chronic conditions NOT treated during this visit that affected my overall medical decision making: [] Treatment plans discussed but not opted for at this time: [] Prescribed medication that requires intensive monitoring for toxicity: [] I have reviewed the patient?s medication list for medication interactions/contraindications and/or for upcoming procedures: [yes or no] Time Spent with the Patient I have personally spent [] minutes on this date, directly related to today's patient visit, including pre and post visit work, for this date of service. Time listed does not include time spent on separately billable services. OB History History (0,0,0,0) No previous pregnancies history have been recorded Women's Health Screening Last Pap Smear Diagnosis 01/29/19 15:01:00 NEGATIVE FOR INTRAEPITHELIAL LESION OR MALIGNANCY. Last HPV HPV DNA Scrn: Negative. (01/29/19 15:01:00) Bone Density No qualifying data available. Mammograms MG Mammogram Digital Screen Bilat +Bran 02/27/24 13:08:00 #[id number] - MG MAMMOGRAM DIGITAL SCREEN BILAT + BRAN BILATERAL DIGITAL SCREENING MAMMOGRAM 3D/2D WITH CAD: 02/27/2024 CLINICAL: Screening. Comparison is made to exams dated: 02/21/2023 mammogram, 02/15/2022 mammogram, 02/16/2021 mammogram, 02/09/2021 mammogram, 02/04/2020 mammogram, and 03/06/2019 mammogram - [facility]. The breasts are extremely dense, which lowers the sensitivity of mammography. Current study was also evaluated with a Computer Aided Detection (CAD) system. No significant masses, calcifications, or other findings are seen in either breast. IMPRESSION: NEGATIVE There is no mammographic evidence of malignancy. A 1 year screening mammogram is recommended. (02/27/2025) This patient?s calculated lifetime risk for development of breast cancer is 36.3%. Based upon the [employer] guidelines 20% and higher: she is a candidate for screening breast MRI. The patient was notified of the results. Your patient?s mammogram demonstrates that she has dense breast [...] may not be detected on mammograms. The [employer] supports annual screening mammography starting at age 40. Megan palma/terrence:02/28/2024 13:48:11 copy to: Amber Louis NP, ph: [phone], fax: [phone] Palliative Care Specialist(s): RT Nahomi(R)(M), [facility] letter sent: New Mammo Normal B1/2 Mammogram BI-RADS: 1 Negative Outside Results No qualifying data available. Problem List/Past Medical History Ongoing Diverticulosis Encounter [...] Vivelle-Dot 0.05 mg/24 hours twice weekly transdermal fi (more content not included)...[facility] HospitalComment on above:Order Comment: duplicateGynecology Office/Clinic NoteChief Complaint Med f/u. History of Present Illness [...] as she has been on 7 pounds sinceher last appointment. Patient continues on compounded semaglutide. Her weight is down from 165 pounds to 149#. She did weigh 143 pounds at her last visit. 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 HRT f/u. History [...] as she has been on 7 pounds sinceher last appointment. Patient continues on compounded semaglutide. [...] reviewed the patient?s medication list for medication interactions/contraindications and/or for upcoming procedures: [yes or no] [...] Electronically signed by We (more content not included)...[facility] Memorial HospitalQuick Strep on 07-13-2023S. pyogenes Org specific cx Ql (Throat)NegativeFiddler's Brewing Company Other Quick StrepSignicast Other Throat Cultureon [id number] cultureORGANISM: Strep dysgalactiae (O:STRDYS) Comments Organism Not Routinely Tested for Susceptibilities Quantity of Growth Heavy Growth PERFORMED BY: [facility] [address] [place] [address] PATHOLOGIST FORENSIC SCIENCE TECHNICIAN JACQUELYN HAWK M.D.[facility] Medical CenterComment on above: Performed By: #### CUT #### [facility] [address] [place] [address] USAPhysician Orderon [id number] Order [id number]#1.00TIFFNormalKindred Hospital DaytonCB AUTO DIFFon [id number] #0.0 103/ulNormal0.0-0.1[facility] HospitalComment on above:Performed By: #### CBC #### [facility] [address] [place] [address] Dr. Kathie Dukephils/100 WBC (Bld)0.3 %Normal0.2-2.0[facility] Comment on above:Performed By: #### CBC #### [facility] [address] [address] [address] Kathie Zamora #0.0 103/ulNormal0.0-0.7The [facility] HospitalComment on above: Performed By: #### CBC #### [facility] [address] [place] [address] Dr. Kathie Umanaosinophils/100 WBC (Bld)0.4 %Critically low0.9-7.0The [facility] HospitalComment on above:Performed By: #### CBC #### [facility] [address] [place] [address] Dr. Kathie Umanarythrocyte distribution width (RBC) [Ratio]12.2 %Nnjvhf74.0-15.0 The [facility] HospitalComment on above:Performed By: #### CBC #### [facility] [address] [place] [address] Dr. Kathie RyanHematocrit (Bld) [Volume fraction]39.1 %Bemahj14.0-48.0The [facility] HospitalComment on above:Performed By: #### CBC #### [facility] [address] [place] [address] Dr. Kathie RyanHemoglobin (Bld) [Mass/Vol]12.8 g/fVWqxqso00.0-16.0The [facility] HospitalComselect specialty hospital on above:Performed By: #### CBC #### [facility] [address] [place] [address] Dr. Kathie Boggs #0.01 10e3/ulNormal0.00-0.03The [facility] HospitalComment on above:Performed By: #### CBC #### [facility] [address] [place] [address] Dr. Kathie Boggs %0.1 %Normal0.0-0.5The [facility] HospitalComment on above: Performed By: #### CBC #### [facility] [address] [place] [address] Dr. Kathie ReedMPH #1.7 103/ulNormal1.2-3.8The [facility] HospitalComment on above:Performed By: #### CBC #### [facility] [address] [place] [address] Dr. Kathie Reedmphocytes/100 WBC (Bld)22.0 %Ndrbsm99.5-60.0The [facility] HospitalComment on above:Performed By: #### CBC #### [facility] [address] [place] [address] Dr. Kathie Azevedo DIFF REQNONormalThe [facility] HospitalComment on above: Performed By: #### CBC #### [facility] [address] [place] [address] Dr. Kathie White (RBC) [Entitic mass]32.5 mkAadtrl98.7-34.0The [facility] HospitalComment on above:Performed By: #### CBC #### [facility] [address] [place] [address] Dr. Kathie White (RBC) [Mass/Vol]32.7 g/lUNlsofc39.9-35.2The [facility] HospitalComment on above:Performed By: #### CBC #### [facility] [address] [place] [address] Dr. Kathie White (RBC) [Entitic vol]99.2 fLCritically high81.0-99.0The [facility] HospitalComment on above:Performed By: #### CBC #### [facility] [address] [place] [address] Dr. Kathie Sawyer #0.5 103/ulNormal0.3-0.8The [facility] HospitalComment on above:Performed By: #### CBC #### [facility] [address] [place] [address] Dr. Kathie Nolascoocytes/100 WBC (Bld)6.0 %Normal1.7-12.0The [facility] Comment on above:Performed By: #### CBC #### [facility] [address] [place] [address] Dr. Kathie Ball #5.5 103/ulNormal1.4-6.5The [facility] HospitalComment on above:Performed By: #### CBC #### [facility] [address] [address] [address] Kathie Bagleyutrophils/100 WBC (Bld)71.2 %Efjblk52.0-75.0The [facility] on above:Performed By: #### CBC #### [facility] [address] [place] [address] Dr. Kathie Millerlet mean volume (Bld) [Entitic vol]10.7 fLNormal9.5-13.5The [facility] HospitalComselect specialty hospital on above:Performed By: #### CBC #### [facility] [address] [place] [address] Dr. Kathie RyanPLT373 103/eqKfgsvv611-749Fva [facility] on above: Performed By: #### CBC #### [facility] [address] [place] [address] Dr. Kathie RyanRBC3.94 106/ulCritically low4.20-5.40The [facility] on above:Performed By: #### CBC #### [facility] [address] [place] [address] Dr. Kathie RyanWBC7.7 103/ulNormal4.0-11.0The [facility] on above: Performed By: #### CBC #### [facility] [address] [place] [address] Dr. Kathie RyanFREE T4on [id number] T4 [Mass/Vol]0.85 ng/dLNormal0.78-2.19 The [facility] on above:Performed By: #### FT4 #### [facility] [address] [place] [address] Dr. Kathie RyanLIPID PROFILEon [id number]-HDL RATIO NORMSUniversity Hospitals [facility] Center on above:Result Comment: 3.3 - 4.4 LOW RISK 4.4 - 7.1 AVERAGE RISK 7.1 - 11.0 MODERATE RISK >11.0 HIGH RISKPerformed By: #### TSH, LIPID, CMP #### [facility] [address] [address] [address] Kathie RyanCholesterol [Mass/Vol]243 mg/dLCritically high<=200The [facility] on above:Performed By: #### TSH, LIPID, CMP #### [facility] [address] [address] [address] Kathie RyanCholesterol in HDL [Mass/Vol]88 mg/dLCritically dgdf08-81Qjj [facility] HospitalComselect specialty hospital on above:Performed By: #### TSH, LIPID, CMP #### [facility] [address] [address] [address] Kathie RyanCholesterol in LDL [Mass/Vol]136.0 mg/dLNoAshtabula County Medical CenterComment on above:Performed By: #### TSH, LIPID, CMP #### [facility] [address] [place] [address] Dr. Kathie Escalonaesterjonatan.total/Cholesterol in HDL [Mass ratio]2.8 {ratio} NormalThe [facility] HospitalComment on above:Performed By: #### TSH, LIPID, CMP #### [facility] [address] [place] [address] Dr. Kathie Lewis NORMAL> or = 60 mg/dl - LOW CARDIOVASCULAR RISK <40 mg/dl - HIGH CARDIOVASCULAR RISKKettering Health MiamisburgComselect specialty hospital on above:Performed By: #### TSH, LIPID, CMP #### [facility] [address] [place] [address] Dr. Kathie RyanLDL CALC NORMALSEE BELOWNoAshtabula County Medical CenterComment on above:Result Comment: <100 mg/dl OPTIMAL 100 - 129 mg/dl NEAR OR ABOVE OPTIMAL 130 - 159 mg/dl BORDERLINE HIGH 160 - 189 mg/dl HIGH >190 mg/dl VERY HIGH Performed By: #### TSH, LIPID, CMP #### [facility] [address] [place] [address] Dr. Kathie RyanTriglyceride [Mass/Vol]95 mg/dLNormal<=150[facility] Comment on above:Performed By: #### TSH, LIPID, CMP #### [facility] [address] [address] [address] Kathie RyanVLDL CALC19.0 mg/dLNormalThe [facility] HospitalComment on above: Performed By: #### TSH, LIPID, CMP #### [facility] [address] [place] [address] Dr. Kathie Ramírez 14(COMP METB)on 85-65-7828Upoggeg [Mass/Vol]3.9 g/dLNormal 3.4-5.0[facility] HospitalComment on above:Performed By: #### TSH, CMP #### [facility] [address] [place] [address] Luis A KarenAlbumin/Globulin [Mass ratio]1.1 {ratio}NormalCleveland Clinic Avon Hospital Comment on above:Performed By: #### TSH, CMP #### [facility] [address] [place] [address] Luis A KarenALP [Catalytic activity/Vol]44 U/LCritically vsx45-555Trl [facility] HospitalComment on above:Performed By: #### TSH, CMP #### [facility] [address] [place] [address] Luis A KarenALT [Catalytic activity/Vol]38 U/FEvgpae19-78Xqk [facility] Comment on above:Performed By: #### TSH, CMP #### [facility] [address] [place] [address] Luis A KarenAnion gap [Moles/Vol]11.0 mmol/LNormalCleveland Clinic Avon HospitalComment on above:Performed By: #### TSH, CMP #### [facility] [address] [place] [address] Luis A KarenAST [Catalytic activity/Vol]17 U/GEkmbhi84-46Vqz [facility] Comment on above:Performed By: #### TSH, CMP #### [facility] [address] [place] [address] Luis A KarenBilirubin [Mass/Vol]0.4 mg/dLNormal0.2-1.3TRegency Hospital [facility] Comment on above:Performed By: #### TSH, CMP #### [facility] [address] [address] Luis A KarenCalcium [Mass/Vol]9.2 mg/dLNormal8.5-10.1The [facility] Comment on above:Performed By: #### TSH, CMP #### [facility] [address] [place] [address] Luis A KarenChloride [Moles/Vol]102 mmol/EXdemzm85-081Ujw [facility] Comment on above:Performed By: #### TSH, CMP #### [facility] [address] [place] [address] Luis A KarenCO2 [Moles/Vol]28.1 mmol/TNmcfmc53.0-30.0The [facility] Comment on above:Performed By: #### TSH, CMP #### [facility] [address] [place] [address] Luis A KarenCreatinine [Mass/Vol]0.61 mg/dLNormal0.52-1.04The [facility] Comment on above:Performed By: #### TSH, CMP #### [facility] [address] [place] [address] Luis A KarenEGFR-AF CAYMAN ISLANDER>60Normal>=60The [facility] HospitalComment on above: Performed By: #### TSH, CMP #### [facility] [address] [place] [address] Luis A KarenEGFR-NON AF [place] ISLANDER>60Normal>=60The [facility] HospitalComment on above:Performed By: #### TSH, CMP #### [facility] [address] [place] [address] Luis A KarenGlobulin (S) [Mass/Vol]3.7 g/dLNormalThe [facility] HospitalComment on above:Performed By: #### TSH, CMP #### [facility] [address] [place] [address] Luis A KarenGlucose [Mass/Vol]95 mg/aCHgeqig37-381Myl [facility] HospitalComment on above:Performed By: #### TSH, CMP #### [facility] [address] [place] [address] Luis A KarenPotassium [Moles/Vol]4.1 mmol/LNormal3.4-5.0The [facility] Comment on above:Performed By: #### TSH, CMP #### [facility] [address] [place] [address] Luis A KarenProtein [Mass/Vol]7.6 g/dLNormal6.1-8.2The [facility] HospitalComment on above:Performed By: #### TSH, CMP #### [facility] [address] [place] [address] Luis A KarenSodium [Moles/Vol]137 mmol/UWpbnuc587-091Nnq [facility] Comment on above:Performed By: #### TSH, CMP #### [facility] [address] [place] [address] Luis A KarenUrea nitrogen [Mass/Vol]12.0 mg/dLNormal7.0-18.0The [facility] HospitalComment on above:Performed By: #### TSH, CMP #### [facility] [address] [place] [address] Luis A KarenUrea nitrogen/Creatinine [Mass ratio]19.7 mg/mgNoAshtabula County Medical CenterComment on above:Performed By: #### TSH, CMP #### [facility] [address] [place] [address] Luis A KarenTSHon 25-55-1578VQP1.840 uIU/mLNormal0.470-4.680The [facility] HospitalComment on above:Performed By: #### TSH, LIPID, CMP #### [facility] [address] [place] [address] Dr. Kathie Shultz [facility] HospitalComment on above: Result Comment: <0.34 UIU/ml HYPERTHYROID 0.34-5.60 UIU/ml EUTHYROID >5.60 UIU/ml HYPOTHYROIDPerformed By: #### TSH, LIPID, CMP #### [facility] [address] [place] [address] Dr. Kathie Renee AUTO DIFFon 75-51-3764LFDD #0.0 103/ulNormal0.0-0.1The [facility] HospitalComment on above:Performed By: #### CBC #### [facility] [address] [place] [address] Luis A KarenBasophils/100 WBC (Bld)0.7 %Normal0.2-2.0The [facility] Comment on above:Performed By: #### CBC #### [facility] [address] [place] [address] Luis A KarenEO #0.1 103/ulNormal0.0-0.7The [facility] HospitalComment on above: Performed By: #### CBC #### [facility] [address] [place] [address] Luis A KarenEosinophils/100 WBC (Bld)1.2 %Normal0.9-7.0The [facility] Comment on above:Performed By: #### CBC #### [facility] [address] [place] [address] Luis A KarenErythrocyte distribution width (RBC) [Ratio]12.5 %Xpvqdj33.0-15.0The [facility] HospitalComment on above:Performed By: #### CBC #### [facility] [address] [place] [address] Luis A KarenHematocrit (Bld) [Volume fraction]36.9 %Fvdqdd36.0-48.0The [facility] HospitalComment on above:Performed By: #### CBC #### [facility] [address] [place] [address] Luis A KarenHemoglobin (Bld) [Mass/Vol]12.3 g/uMMtfhjl26.0-16.0[facility] HospitalComment on above:Performed By: #### CBC #### [facility] [address] [place] [address] Luis A KarenIG #0.01 10e3/ulNormal0.00-0.03The [facility] HospitalComment on above:Performed By: #### CBC #### [facility] [address] [place] [address] Luis A KarenIG %0.2 %Normal0.0-0.5The [facility] HospitalComment on above: Performed By: #### CBC #### [facility] [address] [place] [address] Luis A BeckhamLYMPH #2.0 103/ulNormal1.2-3.8The [facility] HospitalComment on above: Performed By: #### CBC #### [facility] [address] [place] [address] Luis A BeckhamLymphocytes/100 WBC (Bld)35.4 %Atpbur29.5-60.0[facility] Comment on above:Performed By: #### CBC #### [facility] [address] [place] [address] Luis A BeckhamMANUAL DIFF REQNONormalThe [facility] HospitalComment on above: Performed By: #### CBC #### [facility] [address] [place] [address] Luis A BeckhamUNIVERSITY OF VERMONT [facility] NETWORK (RBC) [Entitic mass]32.6 tnVbyozf20.7-34.0[facility] Comment on above:Performed By: #### CBC #### [facility] [address] [place] [address] Luis A BeckhamMCHC (RBC) [Mass/Vol]33.3 g/tTEbppjj42.9-35.2[facility] Comment on above:Performed By: #### CBC #### [facility] [address] [place] [address] Luis A BeckhamV (RBC) [Entitic vol]97.9 tVVwujdm22.0-99.0[facility] Comment on above:Performed By: #### CBC #### [facility] [address] [place] [address] Luis A BeckhamMONO #0.4 103/ulNormal0.3-0.8The [facility] HospitalComment on above: Performed By: #### CBC #### [facility] [address] [place] [address] Luis A KarenMonocytes/100 WBC (Bld)6.2 %Normal1.7-12.0The [facility] Comment on above:Performed By: #### CBC #### [facility] [address] [place] [address] Luis A GriffithenNEUT #3.2 103/ulNormal1.4-6.5The [facility] HospitalComment on above: Performed By: #### CBC #### [facility] [address] [place] [address] Luis A KarenNeutrophils/100 WBC (Bld)56.3 %Svdpvo74.0-75.0The [facility] Comment on above:Performed By: #### CBC #### [facility] [address] [place] [address] Luis A KarenPlatelet mean volume (Bld) [Entitic vol]10.3 fLNormal9.5-13.5The [facility] HospitalComment on above:Performed By: #### CBC #### [facility] [address] [place] [address] Luis A DinhgBLT209 103/piRlmipq229-435Lyh [facility] HospitalComment on above: Performed By: #### CBC #### [facility] [address] [place] [address] Luis A KarenRBC3.77 106/ulCritically low4.20-5.40The [facility] HospitalComment on above:Performed By: #### CBC #### [facility] [address] [place] [address] Luis A KarenWBC5.7 103/ulNormal4.0-11.0The [facility] HospitalComment on above: Performed By: #### CBC #### [facility] [address] [place] [address] Luis A KarenPROF 14(COMP METB)on 40-89-9664Munbnoa [Mass/Vol]3.8 g/dLNormal 3.5-5.0The [facility] HospitalComment on above:Performed By: #### TSH, CMP #### [facility] [address] [place] [address] Luis A KarenAlbumin/Globulin [Mass ratio]1.0 {ratio}NormalC[facility] Comment on above:Performed By: #### TSH, CMP #### [facility] [address] [place] [address] Luis A KarenALP [Catalytic activity/Vol]31 U/LCritically jnc33-890SmgCleveland Clinic Avon HospitalComment on above:Performed By: #### TSH, CMP #### [facility] [address] [place] [address] Luis A KarenALT [Catalytic activity/Vol]26 U/LNormal9-52The [facility] Comment on above:Performed By: #### TSH, CMP #### [facility] [address] [place] [address] Luis A KarenAnion gap [Moles/Vol]14.7 mmol/LNormalCleveland Clinic Avon HospitalComment on above:Performed By: #### TSH, CMP #### [facility] [address] [place] [address] Luis A KarenAST [Catalytic activity/Vol]14 U/QQfifsv00-25Qqr [facility] Comment on above:Performed By: #### TSH, CMP #### [facility] [address] [place] [address] Luis A KarenBilirubin [Mass/Vol]0.6 mg/dLNormal0.2-1.3TRegency Hospital [place] Comment on above:Performed By: #### TSH, CMP #### [facility] [address] [place] [address] Luis A KarenCalcium [Mass/Vol]9.0 mg/dLNormal8.4-10.2[facility] Comment on above:Performed By: #### TSH, CMP #### [facility] [address] [place] [address] Luis A KarenChloride [Moles/Vol]105 mmol/MFjvuso18-453FmrCleveland Clinic [facility] Hospital Comment on above:Performed By: #### TSH, CMP #### [facility] [address] [place] [address] Luis A KarenCO2 [Moles/Vol]24.5 mmol/ENwpqvq21.0-30.0[facility] Comment on above:Performed By: #### TSH, CMP #### [facility] [address] [address] Luis A KarenCreatinine [Mass/Vol]0.81 mg/dLNormal0.52-1.04[facility] Comment on above:Performed By: #### TSH, CMP #### [facility] [address] [address] Luis A KarenEGFR-AF CAYMAN ISLANDER>60Normal>=60The [facility] HospitalComment on above: Performed By: #### TSH, CMP #### [facility] [address] [place] [address] Luis A KarenEGFR-NON AF [place] ISLANDER>60Normal>=60The [facility] HospitalComment on above:Performed By: #### TSH, CMP #### [facility] [address] [place] [address] Luis A KarenGlobulin (S) [Mass/Vol]3.7 g/dLNormalThe [facility] HospitalComment on above:Performed By: #### TSH, CMP #### [facility] [address] [place] [address] Luis A KarenGlucose [Mass/Vol]94 mg/aJUeokgc30-423EdzCleveland Clinic Avon HospitalComment on above:Performed By: #### TSH, CMP #### [facility] [address] [place] [address] Luis A KarenPotassium [Moles/Vol]4.2 mmol/LNormal3.4-5.0[facility] Comment on above:Performed By: #### TSH, CMP #### [facility] [address] [place] [address] Luis A KarenProtein [Mass/Vol]7.5 g/dLNormal6.1-8.2[facility] HospitalComment on above:Performed By: #### TSH, CMP #### [facility] [address] [place] [address] Luis A KarenSodium [Moles/Vol]140 mmol/DUxokma488-098Wmj [facility] Comment on above:Performed By: #### TSH, CMP #### [facility] [address] [place] [address] Luis A KarenUrea nitrogen [Mass/Vol]16.0 mg/dLNormal7.0-17.0The [facility] HospitalComment on above:Performed By: #### TSH, CMP #### [facility] [address] [place] [address] Luis A KarenUrea nitrogen/Creatinine [Mass ratio]19.8 mg/mgNormUniversity Hospitals Health SystemComment on above:Performed By: #### TSH, CMP #### [facility] [address] [place] [address] Luis A KarenTSHon 11-68-0573BGY7.533 uIU/mLNormal0.470-4.680The [facility] HospitalComment on above:Performed By: #### TSH, CMP #### [facility] [address] [place] [address] Luis A KarenTSH RANGESEE [facility]tering Health DaytonComment on above:Result Comment: <0.34 UIU/ml HYPERTHYROID 0.34-5.60 UIU/ml EUTHYROID >5.60 UIU/ml HYPOTHYROIDPerformed By: #### TSH, CMP #### [facility] [address] [place] [address] Luis A KarenVITAMIN B12on 45-95-4969Bapnhfpnc (Vitamin B12) [Mass/Vol]418.0 pg/fFHcgzxk736.0-931.0The [facility] HospitalComment on above:Performed By: #### VITB12, VITAD #### [facility] [address] [place] [address] Luis A KarenVITAMIN D 25 OHon 86-41-3749OYA D 25-OH35.0 ng/mLNormalCleveland Clinic Avon HospitalComment on above:Performed By: #### VITB12, VITAD #### [facility] [address] [place] [address] Luis A KarenVIT D RANGESSEE [facility] DaytonComment on above: Result Comment: <20 ng/mL Vit D deficient 20 - <30 ng/mL Vit D insufficient 30 - 100 ng/mL Vit D sufficient >100 ng/mL Potential ToxicityPerformed By: #### VITB12, VITAD #### [facility] [address] [place], [place] [id number] Luis A GriffithenCovid-19 PCR (CVDVAL[facility])on 89-40-8426Fjnbgk TypeTest performed using RT-PCR from a nasopharyngeal collected specimen.NormalThe [facility] Comment on above:Performed By: #### CVDTBH #### [facility] [address] [place] [address] Lusi A SalterNcbcuBELC-VfX-1 (COVID-19) RNA LION+probe Ql (Unsp spec)Not detectedNormal NOT DETECTEDThe [facility] HospitalComment on above:Result Comment: This test is not yet approved or cleared by the [place] FDA. When there are no FDA- approved or cleared tests available, and other criteria are met, FDA can make tests available under an emergency access mechanism called an Emergency Use Authorization (EUA). The EUA for this test is supported by the [place] of Health and Human Service's (HHS's) declaration [...] of clinical signs and symptoms consistent with SARS-CoV-2.Performed By: #### CVDTBH #### [facility] [address] [place], [place] [id number] Luis A Beckham Vital Signs Date TimeVital SignValuePerforming AratqvlreLigwlzgj26-81-9924 17:00-0500Body xayjza839.56 cmAariana Cates Other [facility] [email or web address] Other [id number] 17:00-0500Body mass index (BMI) [Ratio] 27.46 kg/z1Wnjmctami Cates Other [employer] Other 02-02-2024 17:00-0500Body bfyjiipykfb36.8 [degF]Haley Cates Other [employer] Other 02-02-2024 17:00-0500Body xgygxn27.58 kgHaley Cates Other [employer] Other 02-02-2024 17:00-0500Diastolic blood tyxfihuc31 mm[Hg] Haley Cates Other [employer] Other 02-02-2024 17:00-0500Respiratory rate18 /minAmbtami Cates Other [employer] Other 02-02-2024 17:00-5312BxS5% (BldA) [Mass fraction]98 % Haley Cates Other [employer] Other 02-02-2024 17:00-0500Systolic blood kokibfob919 mm[Hg] Haley Cates Other [employer] Other 08-14-2023 17:25-0400Body gpmovx449.56 Mike Licea Other [employer] Other 08-14-2023 17:25-0400Body mass index (BMI) [Ratio] 27.29 kg/r6BukjljKanika Licea Other [employer] Other 08-14-2023 17:25-0400Body gerhgzjxyxx13.3 [degF]Kanika Licea Other [email or web address] Other 08-14-2023 17:25-0400Body .12 kgOlesyawendy Anuja Other [employer] Other 08-14-2023 17:25-0400Diastolic blood iqbieqar23 mm[Hg] Kanika Licea Other [facility] [email or web address] Other 08-14-2023 17:25-0400Respiratory rate18 /minOlesyawendy Licea Other [employer] Other 08-14-2023 17:25-6790WkZ1% (BldA) [Mass fraction]98 % Kanika Licea Other [email or web address] Other 08-14-2023 17:25-0400Systolic blood fkjizkra569 mm[Hg] Kanika Licea Other [employer] Other 11-10-2022 15:48-0500Diastolic blood dcpyxgpi426 mm[Hg]Mio Zuñiga [facility]11-10-2022 15:48-0500Mean blood qzpjjjxu526 mm[Hg]Mio Yogesh [facility]11-10-2022 15:48-0500 Systolic blood vlufpjxk663 mm[Hg]Mio Yogesh [facility]11-10-2022 15:34-0500Blood Pressure LocationMonegra Yogesh [facility]11-10-2022 15:34-0500 Diastolic blood yjqnzlvi53 mm[Hg]Mio Yogesh [facility]11-10-2022 15:34-0500Heart rate87 /minMohamed Yogesh [facility]11-10-2022 15:34-4982OsK0% (BldA) [Mass fraction]100 %Mio Zuñiga [facility]11-10-2022 15:34-0500 Systolic blood mm[Hg]Mio Zuñiga [facility] Encounters Encounter DateEncounter TypeCare ProviderFacilityStart: 98-08-1716szoeoxdidcFjcs Jo Aichholz APRN-CNPFacility:[facility]art: 03-17-2025 ambulatoryLisa Delmi Louis APRN-CNPFacility:[facility] MainStart: 03-16-2025 End: 34-51-1350brtfgvsajzScjb Jo Aichholz DINING CAR SERVER-CNPFacility:[facility]art: 03-04-2025 End: 97-38-1362totdyntfftJean Delmi Louis APRN-CNPFacility:[facility] Start: 08-08-2024 End: 05-21-9866Bgdnaumog Result EncounterGeneric External Data ProviderNOMS External Department UnsolicitedStart: 08-08-2024 End: 02-25-9833Iutokykts Result EncounterGeneric External Data ProviderNOMS External Department UnsolicitedStart: 08-07-2024 End: 54-13-5875zxtxuewxaoKmdx Delmi Louis APRN-CNPFacility:[facility] Start: 04-30-2024 End: 03-58-8905zaxrbkeqgaSocvh Sue Weihrauch PA-CFacility:[facility] HospitalStart: 04-17-2024 End: 88-59-2843TckptdLxng Aichholz NP Work Phone: NOQJ CWM FMComment on above:Acute non-recurrent sinusitis of other sinus (Primary Dx); Antibiotic-induced yeast infectionStart: 09-25-2023 End: 37-70-0515ufgplogeqcWQDH AICHHOLZNot AvailableStart: 08-23-2023 End: 10-17-5055mvfrpytwdgIVDI AICHHOLZNot AvailableStart: 08-08-2023 End: 26-81-9930tttklmzediFTCN AICHHOLZNot AvailableStart: 07-31-2023 End: 98-21-2671amtlvhvmdnXTBU AICHHOLZNot AvailableStart: 07-17-2023 End: 25-16-3631uuhxavrzbeTablp Keller Other [facility] [employer] Other Start: 69-96-3556Valmokhpr encounterHaley Prnice [facility] Sandy Level RoadStart: 07-13-2023 End: 82-98-7530foviygxctkItuuy L KellerFacility:[facility] Healthcaretart: 07-13-2023 End: 81-50-1904Ewmvxiln ReferredAPRCarl Cates Work Phone: [facility] [place] Work Phone: Start: 07-13-2023 End: 72-15-5107jnvylaqiyuHMIC Amber Keller Work Phone: [facility] Work Phone: Start: 88-29-2225Avjqnz outpatient visit 25 minutes Haley [facility] ClydeStart: 05-17-2023 End: 23-37-6956zmdqwkiqfvQXFGDUAH A FLAVIONot AvailableStart: 05-10-2023 End: 92-59-7895kfhlfwlnloNNHBLRMD A BROWNNot AvailableStart: 05-02-2023 End: 77-94-9787iwfimhttgxIehraibt A FlavioFacility:FTMCStart: 05-02-2023 End: 31-64-8140Hxs Drop offNicbarbara A Flavio [facility] Start: 05-02-2023 End: 65-49-6794eibxgpqlulYGUWEXIN A BROWNNot AvailableStart: 01-22-2023 End: 79-90-6961qhyzsqvbspWiaoac Anuja Other [employer] Other Start: 77-68-4585Oqmmac outpatient visit 15 minutes Kanika LiceaFPG Urgent Care ClydeStart: 04-20-2022 End: 60-98-6086Qlexlnt encounter procedureMonegra KaryHuber Yogesh [facility] Start: 03-29-2022 End: 13-71-8023Njetoov encounter procedureMonegra KaryHuber Yogesh [facility] Start: 41-79-4623Gzvmoklxd for general adult medical examination without abnormal findingsCNP AMBER LOUISCleveland Clinic [facility] Start: 09-29-2021 End: 11-22-5498ettmxdrtziHCU AMBER MISSYFacility:B2Wuqse: 09-29-2021 End: 53-31-7388Ijrkwgwbw for general adult medical examination without abnormal findingsCNP AMBER MISSYFacility:J4Ferwn: 90-01-6820Afdszy outpatient visit 5 minutesItzel WilkinsonFPG Urgent Care ClydeStart: 10-19-2020 End: 05-51-7182gkribhkjalKT DOCTOR MISCFacility:F6Ntzwn: 10-04-2020 End: 89-56-3072tbbblcgdsvPRFQLPNMD BREAULTFacility:H1 Procedures DateProcedureProcedure DetailPerforming ClinicianStart: 90-18-7520SNE [facility] WITH AUTO DIFFGeneric External Data ProviderStart: 20-42-5012OegdjqjhiymGbjw Aichholz PATIENT SCHEDULER Work Phone: Start: 08-08-2023H/O: hysterectomyHistory of total vaginal hysterectomy (TVH)Amber Louis PATIENT SCHEDULER Work Phone: Plan of Treatment DateCare ActivityDetailAuthorStart: 24-60-3448Ekvntwqwe for malignant neoplasm of colonNOMS HealthcareStart: 90-76-5326Uitufjnju for malignant neoplasm of breastMammogramNOMS HealthcareStart: 68-35-8380Mvrotp cultureThroat Culture [facility] Healthcaretart: 25-46-9494Xtikbzefp for malignant neoplasm of colonNOMS HealthcareBacteria identified in Throat by Aerobe culture [facility] Payers DatePayer CategoryPayerPolicy [id number] Health InsuranceTOLEDO HOSPITALCAL MUTUAL ..[id number] 2.3.719054.08177309-37-5497Bblgbuy531706[id number] 2.1.400199.3.57[id number] 2..1.585919.3.57[id number] 2..1.871877.3.57[id number] 2..1.336035.3.57[id number] 2.1.301826.3.579.2.[id number] 2.16.840.1.289771.3.579.2.[id number] 2.16840.1.559303.3.57[id number] 2.16.840.1.689796.3.579.2.033898-99-1349Qahiuqm781990 2.16840.1.006201.3.579.2.[id number] 2.840.1.948072.3.579.[id number] 2.840.1.608893.3.57[id number] 2.840.1.892096.3.579.[id number] 2.840.1.646555.3.57[id number] 2.0.1.899178.3.57[id number] 2.840.1.731682.3.579.[id number] 2.0.1.809355.3.579.[id number] [id number] [id number] 2.84[id number] 2.16840.1.357323.3.579.[id number] 2.16.840.1.495926.3.579.2.531 Social History DateTypeDetailFacilityUnknown if ever smokedNoputnam [facility] hospital [email or web address] Other Start: 07-31-2023 End: 88-46-0198[facility] statusNo Smoking Status EnteredBellevue Hospitaltart: 04-20-2022 End: 13-79-5528Oimimep smoking statusNever smoked tobacco (finding)[facility] smoking statusNeDayton [facility] Medical Center Start: 49-05-0926Pho Assigned At [facility] Start: 20-17-0676Trchmbn use and exposureSmokeless tobacco non-userNOMS HealthcareStart: 15-25-2318Xujdiquzu beverage intakeCurrent drinker of alcohol (finding)[facility]OMS HealthcareStart: 07-31-2023 End: 75-51-6724Oywdhxi of Social functionNOMS HealthcareDo you belong to any clubs or organizations such as muslim groups, unions, fraternal or athletic ruperto ups, or school groups?YesNOMS HealthcareAre you now , , , , never or living with a partner?DivorcedNOMS HealthcareHow often to you have a drink containing alcohol?2-3 time sa weekNOMS HealthcareHow many standard drinks containing alcohol do you have on a typical day?1 or 2NOMS HealthcareHow often do you have 6 or more drinks on 1 occasion?Less than monthly [facility] HealthcareDo you feel stress - tense, restless, nervous, or anxious, or unable to sleep at night because yourmind is troubled all the time - these days [OSQ]Not at allNOMS Healthcare(I/We) worried whether (my/our) food would run out before (I/we) got money to buy more.Never trueNOMS HealthcareIn the past 12 months, was there a time when you were not able to pay the mortgage or rent on time?NoNOMS HealthcareStart: 29-47-7594Zarruwe CommentSOCIALLYNOVA Healthcare Start: 79-71-4820Mlj assigned at birthNot on Newport Medical CenterNEGATED: Highlighted rowStart: NINFHistory of tobacco usePassive smokerSPANISH FORK [facility]ITAL Healthcare Functional Status TdyyMqebjacgbtJowprxCmjqbsph92-13-9208Blaowuutar StatusFisher-[facility] Clinical Notes 2021 to 08-06-2024 Note Date & LftjGnkjXpqnswzq10-84-6850 NotePatient Education Materials Name: Dona Wood Current Date: 08/06/2024 09:47:06 [...] or less active, or if you have otherfactors that change your calorie needs. ?Use your [...] about the size of your fist. ? 7641-5846 The Clip. All rights reserved. This information is not intended as a substitute for professional medical care. Always follow your healthcare professional's instructions.[facility]02-24-2025 NotePatient Education Materials Name: Nicely, Dona Shima Current Date: 08/04/2024 15:13:59 [place] : 1975 The following sheet(s) are the Patient Education Leaflets for Dona Wood Ambulatory Hormone Changes During Menopause Menopause is not a sudden change. During the months or years before menopause (perimenopause),?yourovaries start to run out of eggs. Your body makes less estrogen and progesterone. This may bring onsymptoms, such as hot flashes. You?ve reached menopause when you have not had a period for 1 year. From that point on, you are in menopause. Perimenopause In the years leading up to menopause,?your ovaries make less estrogen. You release fewer eggs and your periods become less regular. Symptoms you may have: ?Heavier or recruiting coordinator periods ?Longer or shorter time between periods [...] the amount of estrogen and progesterone. This dropcauses sudden and severe symptoms. ? 9642-3217 The Clip. All rights reserved. This information is not [...] or less active, or if you have otherfactors that change your calorie needs. ?Use your hand to help you measure serving sizes. For example: o1 teaspoon: This is about the size of the first joint of your thumb. o1 tablespoon: This is about the size of the first 2 joints of your thumb. o1 ounce: This is about (more content not included)...[facility]02-02-2024 Evaluation note* Encounter Date Diagnosis Assessment Notes Treatment Notes Treatment Clinical Notes Jul, Sore throat (ICD-10 - J02.9) Jul,Viral illness (ICD-10 - B34.9) Advised patient that [...] treatment plan. Patient left in stable condition. [facility] Other 08-14-2023 Evaluation note* Encounter Date Diagnosis Assessment Notes Treatment Notes Treatment Clinical Notes Jan, Cellulitis, neck (ICD-10 - L03.2 21) Discussed with patient concerning for secondary bacterial infection in area. Will treat with Keflex3 times daily x7 days. Finish entire course. [...] fever. Patient verbalized understanding of treatment plan. [facility] Other 09-22-2021 Evaluation note* Encounter Date Diagnosis Assessment Notes Treatment Notes Treatment Clinical Notes Feb, Encounter for screening for othe r viral diseases (ICD-10 - Z11.59) Feb,Other Additional time spent conducting pre-visit phone call, screening for symptoms, instructions on social distancing, application and removal of PPE, and cleaning of examination room, equipment and supplies was preformed. Patient education given for testing methodology and results. Patient care instructions given in writting by [facility] Care At Home document. [facility] Other Evaluation + Plan note Future Appointments Appointment Date:04/13/2022 03:45:00 PM Scheduled Provider:Mio Zuñiga MD Location:[facility].Vascular Clinic Appointment Type:[facility] Follow [facility] ([facility]) [facility] noteNo assessment information available [facility] Work Phone: Evaluation noteNo InformationNort [email or web address] Other Evaluation note* Diagnosis Erythema nodosum- Primary BMI 26.0-26.9,adult Erythema nodosum- Primary BMI 26.0-26.9,adult History of streptococcal sore throat Antibiotic-induced yeast infection Erythema nodosum- Primary History of streptococcal sore throat BMI 26.0-26.9,adult Erythema nodosum- Primary Acute non-recurrent sinusitis of other sinus- Primary Antibiotic-induced yeast infection documented in this encounter NOMS HealthcareHistory general Narrative - Reported* Type Description Date Surgical History hysterectomy [facility] Other History general Narrative - Reported* Type Description Date Medical History Diya-Schlatter's disease of ri ght knee Surgical HistoryhysterectomySurgical Historyknee arthroscopy [facility] Other Hishtiy general Narrative - Reported* Type Description Date Medical History Diya-Schlatter's disease of ri ght knee Surgical HistoryhysterectomySurgical Historyknee arthroscopySurgical Historyfoot cyst removal [facility] Other Hospital course Narrative No data available for this section [facility] instructions No data available for this section [facility] note No data available for this section [facility] Summary Purpose Family History No Family History [...] section and content) DATE CREATED AUTHOR 10/01/2021 [facility] DATE CREATED AUTHOR AUTHOR'S ORGANIZ ATION 05/05/2023 [facility] DATE CREATED AUTHOR AUTHOR'S ORGANIZ ATION 07/22/2023 [facility] DATE CREATED AUTHOR AUTHOR'S ORGANIZ ATION 09/26/2023 [facility] EPIC DATE CREATED AUTHOR AUTHOR'S ORGANIZ ATION 03/19/2025 [facility] REASON FOR VISIT (unrecogniz ed section and content) #27 BLACK SHERRIE, RUSLAN EXP OSUREBUG BITE ON NECK , ITCHYSORE THROAT, AT ER YESTERDAYNo Information Patient Care team informatio n (unrecognized section and content) Team Status: Inactive Member Role Status Dates Haley Cates APRN Attending Provider Active Start: July 13, 2023 End: July 13, 2023Team MemberRelationshipSpecialtyStart DateEnd Date Jose Bowens MD [address] [place] [address] PCP - GeneralFamily Medicine08/08/23 Amber Louis NP [address] [place] [address] Nurse PractitionerFamily Medicine06/11/22 Amber Louis NP [address] [place] [phone] [facility] PractitionerArch[facility]08/08/23Team MemberRelationshipSpecialtyStart DateEnd Date Jose Bowens MD [address] [place] [address] PCP - GeneralArch[facility]08/08/23 Amber Louis NP [address] [place] [address] Nurse PractitionerArch[facility]06/11/22 Amber Louis NP [address] [place] [phone] Nurse PractitionerArch[facility]08/08/23 Goals (unrecognized section and content) Goals may [...] BE BASED ON THE PRIMARY CLINICAL RECORDS. [facility] [employer] provides no warranty or guarantee of the accuracy or completeness of information in this document.
--- OUTSIDE RECORDS SUMMARY | 2025-06-10 06:03 | XMS_ITS | Clinical Summary ---
Author Organization [employer] [facility] lin Address [address] [place] [address] Care Team Providers Care Width Stripper Name Role Phone Lisasanjeevgisella Amberreinier Awad NP Primary Care Provider [phone] Allergies Active AllergyReactionsCriticalityNoted DateCommentsCephalexinRashMedium 01/08/2025 Medications MedicationSigDispense QuantityRefillsLast FilledStart DateEnd DateStatus b complex vitamins (BALANCED B-50) tablet Take 1 tablet by mouth dailyActive SEMAGLUTIDE SUBQ Inject subcutaneouslyActive estradioL (VIVELLE-DOT) 0.05 mg/24 hr 5Active Encounters DateTypeDepartmentCare XsghXjocmlpskre70/13/2025 3:20 PM EDWARD[facility] [address] [place] [address] Yahaira Perkins NP Acute non-recurrent maxillary sinusitis (Primary Dx); Antibiotic-induced yeast infectionfrom Last 3 Months Social History Tobacco UseTypesPacks/DayYears UsedDateSmoking Tobacco: NeverSmokeless Tobacco: Never Tobacco Cessation:Counseling Given: Yes CommentsNoSex and Gender InformationValueDate RecordedSex Assigned at BirthNot on fileLegal HauWuamql06/16/2024 10:13 AM EDTGender IdentityNot on file Sexual OrientationNot on file Last Filed Vital Signs Vital SignReadingTime TakenCommentsBlood Pressure--Pulse--Temperature-- Respiratory Jnok932401/08/2025 8:44 AM EDTOxygen Saturation--Inhaled Oxygen Concentration--Jbltgr76.6 kg (160 lb)04/23/2025 3:25 PM VOSHpzriy871.6 cm (5' 4 )04/23/2025 3:25 PM ESTBody Mass Index27.4604/23/2025 3:25 PM EST Plan of Treatment Not on file Medical Devices Not on file Insurance MemberSubscriberPlan / Payer (Effective 2024-Present)Name:Dona Wood Relation to Subscriber:SelfName:Dona Wood Payer ID:Not on file Type:Not on file Address: [place] [phone] MemberSubscriberPlan / Payer (Effective 2025-Present)Name:Dona Wood Relation to Subscriber:SelfName:Dona Wood Payer ID:Not on file Type:Not on file Address: [place] [phone] Care Teams Team MemberRelationshipSpecialtyStart DateEnd Date Amber Louis, VBA PROGRAMMER [address] [place] [address] [facility]01/25/24
--- OUTSIDE RECORDS SUMMARY | 2025-06-10 06:03 | XMS_ITS | Patient Health Record ---
Author Organization [facility] Address [address] [place] [address] Care Team Providers Care Ginger Farmer Name Role Phone Sinan Reyes Unavailable [phone] Reason For Referral No Information Social History Tobacco Use: Social History Observation Description Date Details (start date - stop date) Never Smoker NA - NA Smoking History Question Answer Notes Smoking Status NonSmoker Alcohol Screening Question Answer Notes Did you have a drink containging alcohol in the last year? Yes Kjkpvq7SzljwzrxgjbajqBvnbkoczRls often did you have six or more drinks on one occasion?Less than monthly (1 point)How many drinks did you have on a typical day when you were drinking in the last year?1 or 2 (0 points)How often did you have a drink containing alcohol in the last year?Two to four times a month (2 points) Problems Problem Type SNOMED Code ICD Code Onset Dates Problem Status W/U Status Risk Notes Problem Radial styloid tenosynovitis (21 825043) De Quervain's tenosynovitis (M65.4) ActiveconfirmedProblemStress fracture of metatarsal bone (608345339)Stress fracture of metatarsal bone of right foot, initial encounter (M84.374A)Active confirmedProblemStress fracture of metatarsal bone of right foot with routine healing, subsequent encounter (M84.374D)Activeconfirmed Plan Of Treatment No Information Insurance Providers Payer Name Payer Address Payer Phone Subscriber Number Group Number Insured Name Patient Relationship to Insured Coverage Start Date Coverage End Date Medical [facility] [address] [place], [place] [id number] ALFONZO PAT Self - patient is the insured Medical [facility] [place] [phone] [id number], MARCIASelf - patient is the [id number] 2018 Medical (General) History Medical History History ICD Code Pacemaker or AICD No, Latex Allergy No,Drug Allergies: No,Bariatric Surgery: No,CPAP Machine:: No Healthcare worker: NoLatex Allergy: NoHave you been in close contact with someone who has had MRSA within the last year?: NoHave you ever had or presently have MRSA?: NoHave you been seen by a dentist in the last year?: YesDo you have any dental problems i.e. Broken, loose, or chipped teeth, absess, gum disease?: NoSurgical History Surgery Date(Month/Year) KNEE 05/19
--- OUTSIDE RECORDS SUMMARY | 2025-06-10 06:03 | XMS_ITS | Clinical Summary ---
Author Organization [facility] Address [address] [place] [address] Care Team Providers Care Physical Fitness Trainer Name Role Phone Amber Louis NP Unavailable Jose Bowens MD Primary Care Provider [phone] Amber Louis ELECTRICAL DESIGN TECHNOLOGIST Unavailable [phone] Allergies No known active allergies Medications MedicationSigDispense QuantityRefillsLast FilledStart DateEnd DateStatus B Complex Vitamins (vitamin B complex) tablet Take 1 tablet by mouth DailyActive fluconazole (Diflucan) 150 MG tablet Indications:Antibiotic-induced yeast infectionOne time dose and may repeat in 3 days if needed 2 tablet 04/17/2024ctive Active Problems ProblemNoted DateDiagnosed DateOther acute uegwezlru59/07/2024History of total vaginal hysterectomy (TVH)08/08/2023History of streptococcal sore throat 08/08/2023ntibiotic-induced yeast juhujjigx10/28/2024MI 26.0-26.9,adult 07/31/2023Erythema xtuhxay8607/31/2023 Assessment & Plan (09/25/2023 10:56 AM EDT): Obtain notes from dermatology Fu here prn Assessment & Plan (08/23/2023 1:16 PM EDT): Symptoms improved with atb and steroids Worsened since she is done Has appt with Dermatology today, she will call office after appt May need rheumatology?? Fu in 6 weeks Assessment & Plan (08/08/2023 10:28 AM EST): Take prednisone until completed Keep fu if not better refer to dermatology Assessment & Plan (07/31/2023 12:55 PM EST): Start NSAID take with food Fu in 3 weeks Check autoimmune labs Family History Medical HistoryRelationNameCommentsColon cancerFatherHyperlipidemiaFatherBreast cancerMaternal GrandmotherColon cancerMaternal GrandmotherHeart diseaseMother HypertensionMotherBreast cancerSisterRelationNameStatusCommentsFatherAlive Maternal GrandmotherMotherAliveSisterAlive Social History Tobacco UseTypesPacks/DayYears UsedDateSmoking Tobacco: NeverPassive Smoke Exposure: NeverSmokeless Tobacco: Never Tobacco Cessation:Counseling Given: No Alcohol UseStandard Drinks/WeekCommentsYes0 (1 standard drink = 0.6 oz pure alcohol)SOCIALLYSocial Connection and Isolation PanelAnswerDate RecordedIn a typical week, how many times do you talk on the phone with family, friends, or neighbors?More than three times a week07/31/2023How often do you get together with friends or relatives?More than three times a week07/31/2023How often do you attend episcopal or jain services?Never07/31/2023o you belong to any clubs or organizations such as episcopal groups, unions, fraternal or athletic groups, or school groups?Yes07/31/2023How often do you attend meetings of the clubs or organizations you belong to?1 to 4 times per year07/31/2023re you , , , , never , or living with a partner? 07/31/2023UDIT-CAnswerDate RecordedQ1: How often do you have a drink containing alcohol?2-3 times a week07/31/2023Q2: How many drinks containing alcohol do you have on a typical day when you are drinking?1 or Q3: How often do you have six or more drinks on one occasion?Less than dovkudq7907/31/2023Overall Financial Resource Strain (CARDIA)AnswerDate RecordedHow hard is it for you to pay for the very basics like food, housing, medical care, and heating?Not hard at all07/31/2023HQ-2AnswerDate RecordedPatient Health Questionnaire-2 Score0 09/25/2023[facility] [place] of Occupational Health - Occupational Stress QuestionnaireAnswerDate RecordedDo you feel stress - tense, restless, nervous, or anxious, or unable to sleep at night because yourmind is troubled all the time - these days?Not at all07/31/2023Exercise Vital SignAnswerDate RecordedOn average, how many days per week do you engage in moderate to strenuous exercise (like a brisk walk)?5 days07/31/2023On average, how many minutes do you engage in exercise at this level?40 min07/31/2023Hunger Vital SignAnswerDate Recorded Within the past 12 months, you worried that your food would run out before you got the money to buymore.Never true07/31/2023Within the past 12 months, the food you bought just didn't last and you didn't have money to get more.Never true 07/31/2023RAPARE - TransportationAnswerDate RecordedIn the past 12 months, has lack of transportation kept you from medical appointments or from getting medications?Yes07/31/2023In the past 12 months, has lack of transportation kept you from meetings, work, or from getting things needed for daily living?No 07/31/2023Housing Stability Vital SignAnswerDate RecordedIn the last 12 months, was there a time when you were not able to pay the mortgage or rent on time?No 07/31/2023Number of Places Lived in the Last YearNot on file07/31/2023In the last 12 months, was there a time when you did not have a steady place to sleep or slept in [place] (including now)?No07/31/2023CommentsUnknownSex and Gender InformationValueDate RecordedSex Assigned at BirthNot on fileLegal Sex Ksglch0508/23/2022 6:38 PM EDTGender IdentityNot on fileSexual OrientationNot on file Last Filed Vital Signs Vital SignReadingTime TakenCommentsBlood Avovsgnd254/8804 10:37 AM EDT Pyqzk6966 10:37 AM THL599% B8Wivvybodbzc94.3 ??C (97.3 ??F)09/25/2023 10:37 AM EDTRespiratory Rprv167508/23/2023 11:20 AM EDTOxygen Gipnuzzyiy45% 08/23/2023 11:20 AM EDTInhaled Oxygen Concentration--Qvlfxa04.1 kg (148 lb) 09/25/2023 10:37 AM WKQDwdugo499.6 cm (5' 4 )09/25/2023 10:37 AM EDTBody Mass Index25. 10:37 AM EDT Plan of Treatment Not on file Insurance Care Teams Team MemberRelationshipSpecialtyStart DateEnd Date Jose Bowens MD PCP - GeneralFamily Medicine08/08/23 Amber Louis NP Nurse PractitionerFamily Medicine06/11/22 Amber Louis NP [facility]erD[facility] Medicine08/08/23
[2025-06-10] MEDS: ONDANSETRON 4 MG RAPDIS TABLET SL (06:07)
== END 2025-06-10 06:27 | disposition home or self-care (01) ==
PROVIDERS: Emergency Provider Emergency Medicine; PCP Nurse Practitioner
DX: K52.9 Noninfective gastroenteritis and colitis, unspecified (principal); Z79.85 Long-term (current) use of injectable non-insulin antidiabetic drugs
CPT/HCPCS: 36415; 80053; 83690; 85025; 87804; 96361; 96374; 96375; 96376; 99284; J1885; J2405; J3490; Q0162